=== PATIENT | female | born 1930 | race Caucasian/White ===

== ENCOUNTER 2017-02-15 17:35 | Emergency (ER) | payer MEDICARE, MEDICAID ==
[2017-02-15 17:35] VITALS: BMI 33.2
[2017-02-15 17:43] VITALS: TEMP 98; O2SAT 100
[2017-02-15 18:41] LABS: BASO # 0.1 K/uL (0.0-0.2); BASO % 1.4 % (0.0-2.0); EOS # 0.2 K/uL (0.0-0.7); EOS % 1.8 % (0.0-4.0); HEMATOCRIT 36.9 % (34.0-47.0); LYMPH # 2.3 K/uL (1.0-4.3); LYMPH % 22.9 % (20.0-40.0); MEAN CELL VOLUME 95.8 fl (81.0-99.0); MEAN CORPUSCULAR HEMOGLOBIN 31.1 pg (27.0-31.0); MEAN CORPUSCULAR HGB CONC 32.5 g/dL (33.0-37.0); MEAN PLATELET VOLUME 9.6 fl (7.2-11.7); MONO # 0.9 K/uL (0.0-0.8); MONO % 9.5 % (0.0-10.0); NEUT # 6.4 K/uL (1.8-7.0); NEUT % 64.4 % (50.0-75.0); NRBC % 0.2 % (0.0-0.0)
[2017-02-15 18:49] LABS: PARTIAL THROMBOPLASTIN TIME 24.2 Seconds (25.6-37.1)
[2017-02-15 18:57] LABS: ALB/GLOB RATIO 1.2 (1.0-2.1); BILIRUBIN,TOTAL 0.7 mg/dl (0.2-1.3); CALCIUM 9.3 mg/dL (8.4-10.2); POTASSIUM 3.8 MMOL/L (3.6-5.0); TOTAL PROTEIN 8.5 G/DL (6.3-8.2)
--- NOTE | 2017-02-15 19:03 | ED PDOC ---
HPI: Abdomen Time Seen by Provider: 02/15/17 18:06 Chief Complaint (Nursing): Abdominal Pain Chief Complaint (Provider): Abdominal Pain History Per: Patient History/Exam Limitations: no limitations Onset/Duration Of Symptoms: Days (x1) Current Symptoms Are (Timing): Still Present Additional Complaint(s): Riley Hamilton is an 86 year old female with previous medical history of chronic kidney disease, hypertension and diabetes, who presents to the emergency department with a complaint of abdominal pain associated with minimal urination during her dialysis treatment today. Denied fever, chills, nausea, vomiting, constipation or diarrhea. Patient was able to complete dialysis prior to ED visit. PMD: Kaushik Hooker MD Past Medical History Reviewed: Historical Data, Nursing Documentation, Vital Signs Vital Signs: Last Vital Signs Temp 98.0 F 02/15/17 17:40 Pulse 66 02/15/17 22:02 Resp 20 02/15/17 22:02 BP 190/71 H 02/15/17 22:02 Pulse Ox 100 02/15/17 21:08 - Medical History PMH: Anemia, Arthritis, Cardia Arrhythmia, Diabetes (type iI), GERD, HTN, Hypercholesterolemia, End Stage Renal Disease (dialysis M/W/F), Chronic Kidney Disease Denies: Atrial Fibrillation, CHF, COPD, HIV, Hypothyroidism, Kidney Stones, Rheumatoid Arthritis - Surgical History Surgical History: Appendectomy - Family History Family History: States: Hypertension - Social History Current smoker - smoking cessation education provided: No Ex-Smoker (has not smoked in the last 12 months): Yes Alcohol: None Drugs: Denies - Immunization History Hx Tetanus Toxoid Vaccination: (unknown) Hx Influenza Vaccination: Yes Hx Pneumococcal Vaccination: Yes - Home Medications Home Medications: Ambulatory Orders Medication Instructions Recorded Aspirin [Aspirin Chewable] 81 mg PO DAILY 06/12/16 Atorvastatin [Lipitor] 10 mg PO DAILY 06/12/16 Gabapentin [Neurontin] 400 mg PO TID 06/12/16 Losartan/Hydrochlorothiazide 100 mg PO DAILY 06/12/16 [Losartan-Hctz 100-12.5 mg Tab] Metoprolol Waggoner/Hydrochlorothiaz 100 mg PO DAILY 06/12/16 [Metoprolol ER-Hctz 100-12.5 mg] Pantoprazole Sodium [Protonix] 40 mg PO DAILY 06/12/16 amLODIPine [Norvasc] 10 mg PO DAILY 06/12/16 - Allergies Allergies/Adverse Reactions: Allergies Allergy/AdvReac Type Severity Reaction Status Date / Time No Known Allergies Allergy Verified 02/15/17 17:40 Review of Systems Constitutional: Negative for: Fever, Chills Gastrointestinal: Positive for: Abdominal Pain. Negative for: Nausea, Vomiting , Diarrhea, Constipation Genitourinary Female: Positive for: Other (minimal urination) Physical Exam - Reviewed Nursing Documentation Reviewed: Yes Vital Signs Reviewed: Yes - Physical Exam Appears: Positive for: Well, Non-toxic, No Acute Distress Head Exam: Positive for: ATRAUMATIC, NORMAL INSPECTION, NORMOCEPHALIC Skin: Positive for: Normal Color Eye Exam: Positive for: Normal appearance, EOMI, PERRL. Negative for: Nystagmus ENT: Positive for: Normal ENT Inspection Neck: Positive for: Normal, Painless ROM, Supple. Negative for: Decreased ROM Cardiovascular/Chest: Negative for: Chest Non Tender Respiratory: Positive for: Normal Breath Sounds, Accessory Muscle Use. Negative for: Decreased Breath Sounds, Respiratory Distress Gastrointestinal/Abdominal: Positive for: Soft, Tenderness (periumbilical). Negative for: Normal Exam, Guarding, Rebound Extremity: Positive for: Normal ROM Neurologic/Psych: Positive for: Alert, Oriented - Laboratory Results Result Diagrams: 02/15/17 18:19 02/15/17 18:19 - ECG O2 Sat by Pulse Oximetry: 100 (RA) Pulse Ox Interpretation: Normal Medical Decision Making Medical Decision Making: Initial Impression: Abdominal pain Initial Plan: * CT ABD/pelvis without contrast * EKG * CMP * Lipase * Urine dipstick * CBC * PTT * PT * Morphine 2mg IV * Accucheck * Urinalysis Time: 2034 --CT ABD.pelvis FINDINGS: Limitations: Lack of intravenous contrast. Motion artifact - mild. Motion artifact - mild to moderate. Lower thorax: Mild cardiomegaly. Coronary artery calcifications. Minimal atelectasis/scarring. 0.4 cm RIGHT middle lobe nodule, stable. Trace LEFT pleural effusion. Small hiatal hernia. ABDOMEN: Liver: Unremarkable. Gallbladder and bile ducts: No calcified stones. No ductal dilation. Pancreas: Unremarkable. No ductal dilation. Spleen: No splenomegaly. Adrenals: Mild hypertrophy of adrenal glands. Kidneys and ureters: No renal calculi. No hydronephrosis. Stomach and bowel: No definite mural thickening. No obstruction. Appendix: Appendectomy. PELVIS: Bladder: Borderline bladder wall thickening, up to 5 mm. Incomplete distention, limiting evaluation. No stones. Reproductive: Small calcification within uterus, likely fibroid. ABDOMEN and PELVIS: Intraperitoneal space: No significant fluid collection. No free air. Bones/joints: Degenerative changes of spine. No acute fracture. Soft tissues: Injection granulomas within gluteal soft tissues. Tiny umbilical hernia containing fat. Vasculature: Moderate atherosclerotic disease. No aneurysm. Lymph nodes: No pathologically enlarged lymph nodes. IMPRESSION: 1. Trace LEFT pleural effusion. 2. Mild cystitis vs underdistention. Correlate with urinalysis. 3. Incidental/non-acute findings are described above. Scribe Attestation: Documented by Deena iMlton, acting as a scribe for Celena Rowan MD. Provider Scribe Attestation: All medical record entries made by the Scribe were at my direction and personally dictated by me. I have reviewed the chart and agree that the record accurately reflects my personal performance of the history, physical exam, medical decision making, and the department course for this patient. I have also personally directed, reviewed, and agree with the discharge instructions and disposition. Disposition - Clinical Impression Clinical Impression: Abdominal pain in female - Patient ED Disposition Is Patient to be Admitted: No - Disposition Disposition: Routine/Home Disposition Time: 22:11 Condition: STABLE Additional Instructions: FOLLOW-UP WITH YOUR PMD WITHIN 2 DAYS FOR REEVALUATION. Instructions: Acute Abdominal Pain (ED) Forms: [employer] (Swedish) Print Language: STATELESS
--- NOTE | 2017-02-15 20:35 | CT ---
EXAM: CT Abdomen and Pelvis Without Intravenous Contrast CLINICAL HISTORY: 86 years old, female; Pain; Abdominal pain; Periumbilical; Prior surgery; Surgery date: 6+ months; Surgery type: Append removed; Additional info: Periumbilical pain TECHNIQUE: Axial computed tomography images of the abdomen and pelvis without intravenous contrast. All CT scans at this facility use one or more dose reduction techniques, viz.: automated exposure control; ma/kV adjustment per patient size (including targeted exams where dose is matched to indication; i.e. head); or iterative reconstruction technique. Coronal and sagittal reformatted images were created and reviewed. COMPARISON: CT - ABD PELVIS PO CONTRAST ONLY 01/29/2016 11:02:41 PM FINDINGS: Limitations: Lack of intravenous contrast. Motion artifact - mild. Motion artifact - mild to moderate. Lower thorax: Mild cardiomegaly. Coronary artery calcifications. Minimal atelectasis/scarring. 0.4 cm RIGHT middle lobe nodule, stable. Trace LEFT pleural effusion. Small hiatal hernia. ABDOMEN: Liver: Unremarkable. Gallbladder and bile ducts: No calcified stones. No ductal dilation. Pancreas: Unremarkable. No ductal dilation. Spleen: No splenomegaly. Adrenals: Mild hypertrophy of adrenal glands. Kidneys and ureters: No renal calculi. No hydronephrosis. Stomach and bowel: No definite mural thickening. No obstruction. Appendix: Appendectomy. PELVIS: Bladder: Borderline bladder wall thickening, up to 5 mm. Incomplete distention, limiting evaluation. No stones. Reproductive: Small calcification within uterus, likely fibroid. ABDOMEN and PELVIS: Intraperitoneal space: No significant fluid collection. No free air. Bones/joints: Degenerative changes of spine. No acute fracture. Soft tissues: Injection granulomas within gluteal soft tissues. Tiny umbilical hernia containing fat. Vasculature: Moderate atherosclerotic disease. No aneurysm. Lymph nodes: No pathologically enlarged lymph nodes. IMPRESSION: 1. Trace LEFT pleural effusion. 2. Mild cystitis vs underdistention. Correlate with urinalysis. 3. Incidental/non-acute findings are described above.
[2017-02-15 22:02] VITALS: BP 190/71; PULSE 66; RESP 20
--- NOTE | 2017-02-16 12:02 | CARD ---
APPROVED REPORT EKG Measurement Heart [id number] <Conclusion> Normal sinus rhythm Rightward axis Nonspecific intraventricular block Abnormal ECG
== END 2017-02-15 22:40 | disposition home or self-care (01) ==
LOC: H.ER 17:35
DX: R10.2 Pelvic and perineal pain (principal); E11.9 Type 2 diabetes mellitus without complications; I10 Essential (primary) hypertension; N18.6 End stage renal disease; Z98.890 Other specified postprocedural states; Z99.2 Dependence on renal dialysis; Z87.891 Personal history of nicotine dependence
CPT/HCPCS: 74176; 80053; 82948; 83690; 85025; 85610; 85730; 93005; 96374; 99283; J2270

== ENCOUNTER 2017-03-01 17:46 | Inpatient (IN) | payer MEDICARE, MEDICAID ==
[2017-03-01 17:47] VITALS: BMI 33.2
--- NOTE | 2017-03-01 18:26 | ED PDOC ---
HPI: Abdomen Time Seen by Provider: 03/01/17 18:04 Chief Complaint (Nursing): Dizziness/Lightheaded Chief Complaint (Provider): abdominal pain History Per: Patient, Family (daughter) History/Exam Limitations: no limitations Onset/Duration Of Symptoms: Mins (x30) Current Symptoms Are (Timing): Still Present Additional Complaint(s): Riley Hamilton is an 86 year old female who presents to the emergency department accompanied by daughter, for an evaluation of sudden, constant umbilical pain associated with low blood pressure, lightheadedness and nausea ongoing 30 minutes prior to arrival. Denied fever, chills, diarrhea, vomiting or constipation. Daughter stated patient feels similar symptoms usually at the end of dialysis treatments on and off for years and noted last meal was at 1400 today. PMD: Kaushik Hooker MD Past Medical History Reviewed: Historical Data, Nursing Documentation, Vital Signs Vital Signs: Last Vital Signs Temp 98.6 F 03/01/17 23:15 Pulse 75 03/01/17 23:15 Resp 18 03/01/17 23:15 BP 199/70 H 03/01/17 23:15 Pulse Ox 100 03/01/17 23:15 - Medical History PMH: Anemia, Arthritis, Cardia Arrhythmia, Diabetes (type iI), GERD, HTN, Hypercholesterolemia, End Stage Renal Disease (dialysis M/W/F), Chronic Kidney Disease Denies: Atrial Fibrillation, CHF, COPD, HIV, Hypothyroidism, Kidney Stones, Rheumatoid Arthritis - Surgical History Surgical History: Appendectomy - Family History Family History: States: Hypertension - Social History Current smoker - smoking cessation education provided: No Ex-Smoker (has not smoked in the last 12 months): Yes Alcohol: None Drugs: Denies - Immunization History Hx Tetanus Toxoid Vaccination: (unknown) Hx Influenza Vaccination: Yes Hx Pneumococcal Vaccination: Yes - Home Medications Home Medications: Ambulatory Orders Medication Instructions Recorded Aspirin [Aspirin Chewable] 81 mg PO DAILY 06/12/16 Atorvastatin [Lipitor] 40 mg PO DAILY 06/12/16 Gabapentin [Neurontin] 400 mg PO TID 06/12/16 Losartan/Hydrochlorothiazide 100 mg PO DAILY 06/12/16 [Losartan-Hctz 100-12.5 mg Tab] Metoprolol Waggoner/Hydrochlorothiaz 100 mg PO DAILY 06/12/16 [Metoprolol ER-Hctz 100-12.5 mg] Pantoprazole Sodium [Protonix] 40 mg PO DAILY 06/12/16 amLODIPine [Norvasc] 10 mg PO DAILY 06/12/16 Clopidogrel [Plavix] 75 mg PO DAILY 03/01/17 Insulin Aspart, Recombinant 5 units SUBCUT DAILY 03/01/17 [Novolog] Latanoprost 0.005% Opht [Xalatan 1 drop DAILY 03/01/17 Opht] Sevelamer Carbonate [Renvela] 800 mg PO DAILY 03/01/17 Timolol 0.25% Ophth [Timoptic 1 drop BID 03/01/17 0.25% Ophth Soln] Zolpidem [Ambien] 10 mg PO DAILY 03/01/17 cloNIDine [Catapres] 0.1 mg PO DAILY 03/01/17 - Allergies Allergies/Adverse Reactions: Allergies Allergy/AdvReac Type Severity Reaction Status Date / Time No Known Allergies Allergy Verified 03/01/17 17:51 Review of Systems ROS Statement: Except As Marked, All Systems Reviewed And Found Negative (and as per HPI) Constitutional: Negative for: Fever, Chills Gastrointestinal: Positive for: Nausea, Abdominal Pain (umbilical). Negative for: Vomiting, Diarrhea, Constipation Neurological: Positive for: Dizziness (lightheaded) Physical Exam - Reviewed Nursing Documentation Reviewed: Yes Vital Signs Reviewed: Yes - Physical Exam Appears: Positive for: Non-toxic, In Acute Distress Head Exam: Positive for: ATRAUMATIC, NORMOCEPHALIC Skin: Positive for: Warm, Dry Eye Exam: Positive for: EOMI, PERRL ENT: Positive for: Pharynx Is (clear) Neck: Positive for: Painless ROM, Supple Cardiovascular/Chest: Positive for: Tachycardia, Irregularly Irregular. Negative for: Murmur Respiratory: Positive for: Normal Breath Sounds. Negative for: Respiratory Distress Gastrointestinal/Abdominal: Positive for: Soft, Tenderness (periumbilical). Negative for: Mass, Distended, Guarding Back: Positive for: Normal Inspection. Negative for: Decreased ROM Extremity: Positive for: Pedal Edema. Negative for: Deformity Lymphatic: Negative for: Adenopathy Neurologic/Psych: Positive for: Alert. Negative for: Motor/Sensory Deficits - Laboratory Results Result Diagrams: 03/01/17 18:38 03/01/17 18:38 - ECG ECG Rhythm: Positive for: Atrial Fibrillation (with RVR) O2 Sat by Pulse Oximetry: 99 (RA) Pulse Ox Interpretation: Normal - Radiology X-Ray Interpretation: Cardiomegaly (with no obvious infiltrate) - Progress ED Course And Treament: Pt found to have new onset atrial fibrillation. BP dipped to sbp 89. Amiodarone IV bolus and infusion ordered. Re-evaluation Time: 21:00 Condition: Improving,but remains with symptoms (in atrial fib rate controlled in 90s) - Physician Consult Information Time Consulting Physican Contacted: 21:15 Physician Contacted: Ty David Outcome Of Conversation: According to Dr David pt has paroxysmal atrial fibrillation and in the past has been on amiodarone. Will follow pt in hospital. - Critical Care Total Time (In Min): 30 Documented Critical Care: Time excludes all time spent performint seperately billable procedures Medical Decision Making Medical Decision Making: Initial Impression: acute/chronic abdominal pain, new onset atrial fib Differential Diagnosis: Abdominal angina; gastritis; peptic ulcer disease; pancreatitis; dyspepsia; ACS; atrial fib Initial Plan: * CMP * Lact acid, plasma * Lipase * CBC * Bentyl 20mg PO * Lidocaine 2% viscous 10ml PO * Pepcid 40mg PO * Amiodarone Time: 2048 --CT ABD/pelvis FINDINGS: Lower thorax: Small bilateral pleural effusions are present with overlying consolidation secondary to atelectasis or infiltrate. A small hiatal hernia is present. ABDOMEN: Liver: The liver is within normal limits for this noncontrast study. Gallbladder and bile ducts: Unremarkable. No calcified stones. No ductal dilation. Pancreas: Unremarkable. No ductal dilation. Spleen: Unremarkable. No splenomegaly. Adrenals: Unremarkable. No mass. Kidneys and ureters: There is a calcification adjacent to the right mid ureter measuring 5 mm, most likely vascular. There is a 2 mm calcification in the lower pole of the left kidney. The right kidney is normal. No hydronephrosis. Stomach and bowel: There is a moderate amount stool throughout the colon. No obstruction. No mucosal thickening. Appendix: Not visualized. PELVIS: Bladder: The bladder is decompressed. No stones. Reproductive: Unremarkable as visualized. ABDOMEN and PELVIS: Intraperitoneal space: Unremarkable. No free air. No significant fluid collection. Bones/joints: There are degenerative changes in the spine. Vasculature: The vasculature demonstrates diffuse moderate atherosclerotic calcification. Stable calcification adjacent to the right mid ureter measuring 5 mm, most likely vascular, unchanged. Lymph nodes: Nonspecific, mildly enlarged bilateral inguinal lymph nodes measuring up to 2.4 cm, unchanged. There is a fat-containing umbilical hernia. IMPRESSION: No acute intra-abdominal or pelvic abnormality. No evidence of bowel or mesenteric ischemia. Nonobstructing left renal stone. Bilateral pleural effusions with overlying consolidation secondary to atelectasis/infiltrate. Small hiatal hernia. Stable bilateral inguinal adenopathy. Small fat containing umbilical hernia Scribe Attestation: Documented by Deena Milton, acting as a scribe for Azalea Young MD. Provider Scribe Attestation: All medical record entries made by the Scribe were at my direction and personally dictated by me. I have reviewed the chart and agree that the record accurately reflects my personal performance of the history, physical exam, medical decision making, and the department course for this patient. I have also personally directed, reviewed, and agree with the discharge instructions and disposition. Disposition - Clinical Impression Clinical Impression: Atrial fibrillation, rapid Counseled Patient/Family Regarding: Studies Performed, Diagnosis - Disposition Disposition Time: 20:00 Condition: GUARDED - Pt Status Changed To: Hospital Disposition Of: Inpatient - Admit Certification Admit to Inpatient:: After my assessment, the patient will require hospitalization for at least two midnights. This is because of the severity of symptoms shown, intensity of services needed, and/or the medical risk in this patient being treated as an outpatient. - POA Present On Arrival: None
[2017-03-01 18:39] LABS: BASO # 0.1 K/uL (0.0-0.2); BASO % 0.9 % (0.0-2.0); EOS # 0.2 K/uL (0.0-0.7); EOS % 1.8 % (0.0-4.0); HEMATOCRIT 33.5 % (34.0-47.0); LYMPH # 1.6 K/uL (1.0-4.3); LYMPH % 18.3 % (20.0-40.0); MEAN CELL VOLUME 95.4 fl (81.0-99.0); MEAN CORPUSCULAR HEMOGLOBIN 32.2 pg (27.0-31.0); MEAN CORPUSCULAR HGB CONC 33.7 g/dL (33.0-37.0); MEAN PLATELET VOLUME 9.9 fl (7.2-11.7); MONO # 0.7 K/uL (0.0-0.8); MONO % 7.6 % (0.0-10.0); NEUT # 6.2 K/uL (1.8-7.0); NEUT % 71.4 % (50.0-75.0); NRBC % 0.2 % (0.0-0.0); RED CELL DISTRIBUTION WIDTH 18.5 % (11.5-14.5); WHITE BLOOD COUNT 8.7 K/uL (4.8-10.8)
[2017-03-01 18:50] LABS: ALB/GLOB RATIO 1.2 (1.0-2.1); BILIRUBIN,TOTAL 0.7 mg/dl (0.2-1.3); CALCIUM 9.5 mg/dL (8.4-10.2); POTASSIUM 4.7 MMOL/L (3.6-5.0); TOTAL PROTEIN 8.3 G/DL (6.3-8.2)
--- NOTE | 2017-03-01 20:49 | CT ---
EXAM: CT Abdomen and Pelvis Without Intravenous Contrast CLINICAL HISTORY: 86 years old, female; Pain; Abdominal pain; Generalized; Additional info: New onset afib and abd pain R/O mesenteric ischemi. Sent phy. Doc. TECHNIQUE: Axial computed tomography images of the abdomen and pelvis without intravenous contrast. All CT scans at this facility use one or more dose reduction techniques, viz.: automated exposure control; ma/kV adjustment per patient size (including targeted exams where dose is matched to indication; i.e. head); or iterative reconstruction technique. Coronal and sagittal reformatted images were created and reviewed. COMPARISON: CT - ABD PELVIS W/O PO OR IV CONT 2017-02-15 19:12 FINDINGS: Lower thorax: Small bilateral pleural effusions are present with overlying consolidation secondary to atelectasis or infiltrate. A small hiatal hernia is present. ABDOMEN: Liver: The liver is within normal limits for this noncontrast study. Gallbladder and bile ducts: Unremarkable. No calcified stones. No ductal dilation. Pancreas: Unremarkable. No ductal dilation. Spleen: Unremarkable. No splenomegaly. Adrenals: Unremarkable. No mass. Kidneys and ureters: There is a calcification adjacent to the right mid ureter measuring 5 mm, most likely vascular. There is a 2 mm calcification in the lower pole of the left kidney. The right kidney is normal. No hydronephrosis. Stomach and bowel: There is a moderate amount stool throughout the colon. No obstruction. No mucosal thickening. Appendix: Not visualized. PELVIS: Bladder: The bladder is decompressed. No stones. Reproductive: Unremarkable as visualized. ABDOMEN and PELVIS: Intraperitoneal space: Unremarkable. No free air. No significant fluid collection. Bones/joints: There are degenerative changes in the spine. Vasculature: The vasculature demonstrates diffuse moderate atherosclerotic calcification. Stable calcification adjacent to the right mid ureter measuring 5 mm, most likely vascular, unchanged. Lymph nodes: Nonspecific, mildly enlarged bilateral inguinal lymph nodes measuring up to 2.4 cm, unchanged. There is a fat-containing umbilical hernia. IMPRESSION: No acute intra-abdominal or pelvic abnormality. No evidence of bowel or mesenteric ischemia. Nonobstructing left renal stone. Bilateral pleural effusions with overlying consolidation secondary to atelectasis/infiltrate. Small hiatal hernia. Stable bilateral inguinal adenopathy. Small fat containing umbilical hernia.
[2017-03-02] MEDS: Insulin Regular 100 units/ml SC SCH ×4 (06:43→23:00)
[2017-03-02] MEDS ORDERED: HYDROCHLOROTHIAZ PO SCH (09:00)
[2017-03-02] MEDS ORDERED: HYDROCHLOROTHIAZIDE PO SCH (09:00)
[2017-03-02] MEDS ORDERED: INSULIN ASPART RECOMBINANT 5 UNIT SUBCUT SCH (09:00)
[2017-03-02] MEDS ORDERED: [UNRECOGNIZED DRUG - OTHER] PO SCH (09:00)
[2017-03-02] MEDS ORDERED: METOPROLOL SU PO SCH (09:00)
[2017-03-02] MEDS ORDERED: ATORVASTATIN 40 MG PO SCH (09:00)
[2017-03-02] MEDS ORDERED: LOSARTAN PO SCH (09:00)
--- NOTE | 2017-03-02 09:24 | CP.PCM.CON ---
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 Pt is presenting with complaints of abdominal pain onset approximately 1 month ago. Pt in the ER was also found to be in new onset Afib and started on IV amiodarone. Abdominal pain is periumbilical, dull, cramp-like , rated 6/10, constant, no alleviating or aggravating factors, BM yesterday x 2 described as soft, non-bloody, non-tarry, and passing gas. Pt reports having BM every 2days and at times is hard/strain. Pt reports having EGD/Colonoscopy many years ago and recalls it being normal. Pt denies epigastric pain, heartburn or reflux. Pt had a CT A/P which showed periumbilical hernia and moderate stool in colon. ROS: A 12pt ROS was obtained and was negative except as above. PMHx:As stated in HPI PSHx: Bilat Transmetatarsal amputation, Parathyroid surgery, Stent placement bilateral lower extremities, Appendectomy Social: TOB- quit 30 years ago, ETOH- Denies, Drugs- Denies FHx: Denies colon cancer Past Patient History - Infectious Disease Hx of Infectious Diseases: None - Tetanus Immunizations Tetanus Immunization: Unknown - Past Medical History & Family History Past Medical History?: Yes - Past Social History Alcohol: None Drugs: Denies - CARDIAC Hx Atrial Fibrillation: No Hx Cardia Arrhythmia: Yes Hx Congestive Heart Failure: No Hx Hypercholesterolemia: Yes Hx Hypertension: Yes - PULMONARY Hx Chronic Obstructive Pulmonary Disease (COPD): No - NEUROLOGICAL Hx Neurological Disorder: No - HEENT Hx HEENT Problems: Yes - RENAL Hx Chronic Kidney Disease: Yes Hx Kidney Stones: No - ENDOCRINE/METABOLIC Hx Hypothyroidism: No - HEMATOLOGICAL/ONCOLOGICAL Hx Anemia: Yes Hx Human Immunodeficiency Virus (HIV): No - INTEGUMENTARY Hx Dermatological Problems: No - MUSCULOSKELETAL/RHEUMATOLOGICAL Hx Arthritis: Yes Hx Rheumatoid Arthritis: No - GASTROINTESTINAL Hx Gastrointestinal Disorders: Yes Hx Gastroesophageal Reflux: Yes - GENITOURINARY/GYNECOLOGICAL Hx Genitourinary Disorders: No - PSYCHIATRIC Hx Substance Use: No - SURGICAL HISTORY Hx Appendectomy: Yes - ANESTHESIA Hx Anesthesia: Yes Hx Anesthesia Reactions: No Hx Malignant Hyperthermia: No Meds Allergies/Adverse Reactions: Allergies Allergy/AdvReac Type Severity Reaction Status Date / Time No Known Allergies Allergy Verified 03/01/17 17:51 - Medications Medications: Current Medications Amlodipine Besylate (Norvasc) 10 mg PO DAILY [facility] Last Admin: 03/02/17 00:07 Dose: 10 mg Aspirin (Aspirin Chewable) 81 mg PO DAILY [facility] Atorvastatin Calcium (Lipitor) 40 mg PO DAILY [facility] Clonidine HCl (Catapres) 0.1 mg PO DAILY [facility] Clopidogrel Bisulfate (Plavix) 75 mg PO DAILY [facility] Enoxaparin Sodium (Lovenox) 70 mg SC DAILY [facility] PRN Reason: Protocol Gabapentin (Neurontin) 400 mg PO TID [facility] Home Med (Losartan/Hydrochlorothiazide [Losartan-Hctz 100-12.5 Mg Tab]) 100 mg PO DAILY [facility] Home Med (Metoprolol [place]/Hydrochlorothiaz [Metoprolol Er-Hctz 100-12.5 Mg]) 100 mg PO DAILY [facility] Amiodarone HCl 450 mg/ (Dextrose) 259 mls @ 34.53 mls/hr IVPB .Q7H31M MOHINDER; 1 MG /MIN PRN Reason: Protocol Last Admin: 03/02/17 04:07 Dose: 16.7 mls/hr Insulin Human Lispro (Humalog) 5 units SC DAILY [facility] Insulin Human Regular (Humulin R) 0 units SC ACCU-CHECK [facility] PRN Reason: Protocol Last Admin: 03/02/17 06:43 Dose: 2 u Latanoprost (Xalatan Opht) 1 drop OU DAILY [facility] Pantoprazole Sodium (Protonix Ec Tab) 40 mg PO DAILY [facility] Sevelamer HCl (Renagel) 800 mg PO DAILY [facility] Timolol Maleate (Timoptic 0.25% Ophth Soln) 1 drop OU BID [facility] Zolpidem Tartrate (Ambien) 5 mg PO [facility] Physical Exam - Constitutional Appears: Non-toxic, No Acute Distress - Head Exam Head Exam: ATRAUMATIC, NORMAL INSPECTION, NORMOCEPHALIC - Eye Exam Eye Exam: EOMI, Normal appearance, PERRL Pupil Exam: PERRL - ENT Exam ENT Exam: Mucous Membranes Moist, Normal Exam - Neck Exam Neck exam: Positive for: Normal Inspection - Respiratory Exam Respiratory Exam: Clear to Auscultation Bilateral, NORMAL BREATHING PATTERN - GI/Abdominal Exam GI & Abdominal Exam: Normal Bowel Sounds, Soft, Tenderness. absent: Distended, Organomegaly Additional comments: small periumbilical hernia on cough - Rectal Exam Rectal Exam: Deferred - Extremities Exam Extremities exam: Positive for: normal inspection Additional comments: LAVF - Back Exam Back exam: NORMAL INSPECTION - Neurological Exam Neurological exam: Alert, Oriented x3 - Psychiatric Exam Psychiatric exam: Normal Affect, Normal Mood - Skin Skin Exam: Dry, Intact, Normal Color, Warm Results - Vital Signs Recent Vital Signs: Last Vital Signs Temp 98.3 F 03/02/17 08:00 Pulse 60 03/02/17 08:00 Resp 18 03/02/17 08:00 BP 173/63 H 03/02/17 08:00 Pulse Ox 98 03/02/17 08:00 - Labs Result Diagrams: 03/01/17 18:38 03/01/17 18:38 Labs: Laboratory Results - last 24 hr 03/01/17 03/01/17 03/01/17 18:38 18:38 18:38 WBC 8.7 RBC 3.52 L Hgb 11.3 L Hct 33.5 L MCV 95.4 MCH 32.2 H MCHC 33.7 RDW 18.5 H Plt Count 216 MPV 9.9 Neut % (Auto) 71.4 Lymph % (Auto) 18.3 L [place] % (Auto) 7.6 Eos % (Auto) 1.8 Baso % (Auto) 0.9 Neut # 6.2 Lymph # 1.6 [place] # 0.7 Eos # 0.2 Baso # 0.1 Sodium 140 Potassium 4.7 Chloride 99 Carbon Dioxide 27 Anion Gap 19 BUN 31 H Creatinine 4.1 H Est GFR ( Amer) 12 Est GFR (Non-Af Amer) 10 POC Glucose (mg/dL) Random Glucose 246 H Lactic Acid 2.7 H Calcium 9.5 Total Bilirubin 0.7 AST 36 ALT 16 Alkaline Phosphatase 144 H Troponin I Total Protein 8.3 H Albumin 4.5 Globulin 3.8 Albumin/Globulin Ratio 1.2 Lipase 193 03/01/17 03/02/17 19:27 06:32 WBC RBC Hgb Hct MCV MCH MCHC RDW Plt Count MPV Neut % (Auto) Lymph % (Auto) [place] % (Auto) Eos % (Auto) Baso % (Auto) Neut # Lymph # [place] # Eos # Baso # Sodium Potassium Chloride Carbon Dioxide Anion Gap BUN Creatinine Est GFR ( Amer) Est GFR (Non-Af Amer) POC Glucose (mg/dL) 239 H Random Glucose Lactic Acid Calcium Total Bilirubin AST ALT Alkaline Phosphatase Troponin I 0.0130 Total Protein Albumin Globulin Albumin/Globulin Ratio Lipase Assessment & Plan - Assessment and Plan (Free Text) Assessment: This is a 86yF with pmhx of HTN, HLD, IDDM Type II, CHF, CKD on HD MWF, PAD, TIA on aspirin/plavix presenting with complaints of abdominal pain onset approximately 1 month ago and new onset afib. 1. Abdominal pain 2. Constipation 3. New onset Afib 4. ESRD on HD 5. CAD/PAD/TIA Plan: -Continue supportive care with pain control and anti-emetics - Bowel regimen for moderate stool on CT imaging, can be contributing to abdominal pian, - Will start miralax daily and can titrate up for at least 1 soft BM daily - Small periumbilia hernia with fat no signs of incarcerated bowel, may need surgical evaluation if no improvement - No plan for endoscopic evaluation as pt is not complaining of GERD or GI bleeding, pt is also on dual antiplatlet therapy - Manage new onset Afib per cardiology , pt is curently on IV amidodarone - No signs of mesenteric ischemia on CT imaging, continue to monitor with serial abdominal exams - ESRD on HD MWF -Will continue to follow pt closely <Joan COSTELLO,An - Last Filed: 03/02/17 14:47> Meds - Medications Medications: Current Medications Amiodarone HCl (Cordarone) 200 mg PO DAILY [facility] Last Admin: 03/02/17 12:23 Dose: 200 mg Amlodipine Besylate (Norvasc) 10 mg PO DAILY [facility] Last Admin: 03/02/17 09:45 Dose: 10 mg Aspirin (Aspirin Chewable) 81 mg PO DAILY [facility] Last Admin: 03/02/17 10:35 Dose: 81 mg Atorvastatin Calcium (Lipitor) 40 mg PO DAILY [facility] Last Admin: 03/02/17 09:45 Dose: 40 mg Clonidine HCl (Catapres) 0.1 mg PO DAILY [facility] Last Admin: 03/02/17 09:45 Dose: 0.1 mg Clopidogrel Bisulfate (Plavix) 75 mg PO DAILY [facility] Last Admin: 03/02/17 09:45 Dose: 75 mg Enoxaparin Sodium (Lovenox) 70 mg SC DAILY [facility] PRN Reason: Protocol Last Admin: 03/02/17 09:45 Dose: 70 mg Gabapentin (Neurontin) 400 mg PO TID [facility] Last Admin: 03/02/17 14:00 Dose: 400 mg Amiodarone HCl 450 mg/ (Dextrose) 259 mls @ 34.53 mls/hr IVPB .Q7H31M MOHINDER; 1 MG /MIN PRN Reason: Protocol Last Admin: 03/02/17 10:50 Dose: 34.53 mls/hr Insulin Human Lispro (Humalog) 5 units SC DAILY [facility] Last Admin: 03/02/17 09:45 Dose: 5 unit Insulin Human Regular (Humulin R) 0 units SC ACCU-CHECK [facility] PRN Reason: Protocol Last Admin: 03/02/17 12:00 Dose: 1 u Latanoprost (Xalatan Opht) 1 drop OU DAILY [facility] Last Admin: 03/02/17 10:41 Dose: 1 drop Metoprolol Succinate (Toprol Xl) 100 mg PO DAILY [facility] Last Admin: 03/02/17 12:23 Dose: 100 mg Pantoprazole Sodium (Protonix Ec Tab) 40 mg PO DAILY [facility] Last Admin: 03/02/17 09:45 Dose: 40 mg Polyethylene Glycol (Miralax) 17 gm PO DAILY [facility] Last Admin: 03/02/17 12:23 Dose: 17 gm Sevelamer HCl (Renagel) 800 mg PO DAILY [facility] Last Admin: 03/02/17 09:45 Dose: 800 mg Timolol Maleate (Timoptic 0.25% Ophth Soln) 1 drop OU BID [facility] Last Admin: 03/02/17 09:45 Dose: 1 drop Zolpidem Tartrate (Ambien) 5 mg PO [facility] Results - Vital Signs Recent Vital Signs: Last Vital Signs Temp 98.2 F 03/02/17 12:05 Pulse 63 03/02/17 12:23 Resp 18 03/02/17 12:05 BP 158/66 H 03/02/17 12:23 Pulse Ox 93 L 03/02/17 12:05 - Labs Result Diagrams: 03/01/17 18:38 03/01/17 18:38 Labs: Laboratory Results - last 24 hr 03/01/17 03/01/17 03/01/17 18:38 18:38 18:38 WBC 8.7 RBC 3.52 L Hgb 11.3 L Hct 33.5 L MCV 95.4 MCH 32.2 H MCHC 33.7 RDW 18.5 H Plt Count 216 MPV 9.9 Neut % (Auto) 71.4 Lymph % (Auto) 18.3 L [place] % (Auto) 7.6 Eos % (Auto) 1.8 Baso % (Auto) 0.9 Neut # 6.2 Lymph # 1.6 [place] # 0.7 Eos # 0.2 Baso # 0.1 Sodium 140 Potassium 4.7 Chloride 99 Carbon Dioxide 27 Anion Gap 19 BUN 31 H Creatinine 4.1 H Est GFR ( Amer) 12 Est GFR (Non-Af Amer) 10 POC Glucose (mg/dL) Random Glucose 246 H Lactic Acid 2.7 H Calcium 9.5 Total Bilirubin 0.7 AST 36 ALT 16 Alkaline Phosphatase 144 H Troponin I Total Protein 8.3 H Albumin 4.5 Globulin 3.8 Albumin/Globulin Ratio 1.2 Amylase Lipase 193 03/01/17 03/02/17 03/02/17 19:27 06:32 10:45 WBC RBC Hgb Hct MCV MCH MCHC RDW Plt Count MPV Neut % (Auto) Lymph % (Auto) [place] % (Auto) Eos % (Auto) Baso % (Auto) Neut # Lymph # [place] # Eos # Baso # Sodium Potassium Chloride Carbon Dioxide Anion Gap BUN Creatinine Est GFR ( Amer) Est GFR (Non-Af Amer) POC Glucose (mg/dL) 239 H Random Glucose Lactic Acid Calcium Total Bilirubin AST ALT Alkaline Phosphatase Troponin I 0.0130 Total Protein Albumin Globulin Albumin/Globulin Ratio Amylase 140 H Lipase 157 03/02/17 03/02/17 10:45 11:25 WBC RBC Hgb Hct MCV MCH MCHC RDW Plt Count MPV Neut % (Auto) Lymph % (Auto) [place] % (Auto) Eos % (Auto) Baso % (Auto) Neut # Lymph # [place] # Eos # Baso # Sodium Potassium Chloride Carbon Dioxide Anion Gap BUN Creatinine Est GFR ( Amer) Est GFR (Non-Af Amer) POC Glucose (mg/dL) 170 H Random Glucose Lactic Acid 1.5 Calcium Total Bilirubin AST ALT Alkaline Phosphatase Troponin I Total Protein Albumin Globulin Albumin/Globulin Ratio Amylase Lipase Attending/Attestation - Attestation I have personally seen and examined this patient.: Yes I have fully participated in the care of the patient.: Yes I have reviewed all pertinent clinical information: Yes Notes (Text): 03/02/17 14:39 This is a 86 yr old F with pmhx of HTN, HLD, IDDM Type II, CHF, CKD on HD, PAD, TIA on aspirin/plavix presenting with complaints of abdominal pain onset approximately 1 month ago and new onset afib on amiodarone. GI consulted for abdominal pain, found to have periumbilical hernia with fat, non incarcerated, reducible. CT shows stool in colon. Will start bowel regimen with miralax and stool softeners. No indication for endoscopic luminal exam. Surgical consult noted. No ischemic signs. Diet as per surgery.
[2017-03-02] MEDS: Insulin Lispro (humaLOG) 100 Units/ml Inj SC SCH (09:45)
[2017-03-02] MEDS: Pantoprazole 40 mg EC Tab PO SCH (09:45)
[2017-03-02] MEDS: Enoxaparin 80 mg Syringe SC SCH (09:45)
[2017-03-02] MEDS: Timolol 0.25% Ophth SOLN OU SCH ×2 (09:45→17:00)
--- NOTE | 2017-03-02 10:32 | RAD ---
HISTORY: f/u on abd CT pleural effusion/ infiltrate COMPARISON: 06/15/2016 TECHNIQUE: Chest PA and lateral FINDINGS: LUNGS: Examination technically limited. No infiltrate identified. PLEURA: Left dario diaphragmatic contour obscured. Possible small left pleural effusion. No evidence of right pleural effusion. No pneumothorax. CARDIOVASCULAR: Normal. OSSEOUS STRUCTURES: No significant abnormalities. VISUALIZED UPPER ABDOMEN: Normal. OTHER FINDINGS: None. IMPRESSION: Limited examination. Possible small left pleural effusion. No infiltrate.
[2017-03-02] MEDS: Latanoprost 0.005% Opht SOUTION OU SCH (10:41)
[2017-03-02 11:18] LABS: AMYLASE 140 U/L (30-110); LIPASE 157 U/L (23-300)
--- NOTE | 2017-03-02 11:46 | CP.PCM.CON ---
History of Present Illness - History of Present Illness History of Present Illness: 86 year old female with ESRD on Hemodialysis Htn, Dm2, admitted with abdominal pain s/p dialysis and noted to be in atrial fibrillation. Started on Amiodarone IV and converted to NSR. Still with c/o periumbilcal pain. GI and Surgery evaluations performed. Past Patient History - Infectious Disease Hx of Infectious Diseases: None - Tetanus Immunizations Tetanus Immunization: Unknown - Past Medical History & Family History Past Medical History?: Yes - Past Social History Alcohol: None Drugs: Denies - CARDIAC Hx Atrial Fibrillation: No Hx Cardia Arrhythmia: Yes Hx Congestive Heart Failure: No Hx Hypercholesterolemia: Yes Hx Hypertension: Yes - PULMONARY Hx Chronic Obstructive Pulmonary Disease (COPD): No - NEUROLOGICAL Hx Neurological Disorder: No - HEENT Hx HEENT Problems: Yes - RENAL Hx Chronic Kidney Disease: Yes Hx Kidney Stones: No - ENDOCRINE/METABOLIC Hx Hypothyroidism: No - HEMATOLOGICAL/ONCOLOGICAL Hx Anemia: Yes Hx Human Immunodeficiency Virus (HIV): No - INTEGUMENTARY Hx Dermatological Problems: No - MUSCULOSKELETAL/RHEUMATOLOGICAL Hx Arthritis: Yes Hx Rheumatoid Arthritis: No - GASTROINTESTINAL Hx Gastrointestinal Disorders: Yes Hx Gastroesophageal Reflux: Yes - GENITOURINARY/GYNECOLOGICAL Hx Genitourinary Disorders: No - PSYCHIATRIC Hx Substance Use: No - SURGICAL HISTORY Hx Appendectomy: Yes - ANESTHESIA Hx Anesthesia: Yes Hx Anesthesia Reactions: No Hx Malignant Hyperthermia: No Meds Allergies/Adverse Reactions: Allergies Allergy/AdvReac Type Severity Reaction Status Date / Time No Known Allergies Allergy Verified 03/01/17 17:51 - Medications Medications: Current Medications Amlodipine Besylate (Norvasc) 10 mg PO DAILY [facility] Last Admin: 03/02/17 09:45 Dose: 10 mg Aspirin (Aspirin Chewable) 81 mg PO DAILY [facility] Last Admin: 03/02/17 10:35 Dose: 81 mg Atorvastatin Calcium (Lipitor) 40 mg PO DAILY [facility] Last Admin: 03/02/17 09:45 Dose: 40 mg Clonidine HCl (Catapres) 0.1 mg PO DAILY [facility] Last Admin: 03/02/17 09:45 Dose: 0.1 mg Clopidogrel Bisulfate (Plavix) 75 mg PO DAILY [facility] Last Admin: 03/02/17 09:45 Dose: 75 mg Enoxaparin Sodium (Lovenox) 70 mg SC DAILY [facility] PRN Reason: Protocol Last Admin: 03/02/17 09:45 Dose: 70 mg Gabapentin (Neurontin) 400 mg PO TID [facility] Last Admin: 03/02/17 09:45 Dose: 400 mg Amiodarone HCl 450 mg/ (Dextrose) 259 mls @ 34.53 mls/hr IVPB .Q7H31M MOHINDER; 1 MG /MIN PRN Reason: Protocol Last Admin: 03/02/17 04:07 Dose: 16.7 mls/hr Insulin Human Lispro (Humalog) 5 units SC DAILY [facility] Last Admin: 03/02/17 09:45 Dose: 5 unit Insulin Human Regular (Humulin R) 0 units SC ACCU-CHECK [facility] PRN Reason: Protocol Last Admin: 03/02/17 06:43 Dose: 2 u Latanoprost (Xalatan Opht) 1 drop OU DAILY [facility] Last Admin: 03/02/17 10:41 Dose: 1 drop Metoprolol Succinate (Toprol Xl) 100 mg PO DAILY [facility] Pantoprazole Sodium (Protonix Ec Tab) 40 mg PO DAILY [facility] Last Admin: 03/02/17 09:45 Dose: 40 mg Polyethylene Glycol (Miralax) 17 gm PO DAILY [facility] Sevelamer HCl (Renagel) 800 mg PO DAILY [facility] Last Admin: 03/02/17 09:45 Dose: 800 mg Timolol Maleate (Timoptic 0.25% Ophth Soln) 1 drop OU BID [facility] Last Admin: 03/02/17 09:45 Dose: 1 drop Zolpidem Tartrate (Ambien) 5 mg PO [facility] Physical Exam - Constitutional Appears: No Acute Distress - Head Exam Head Exam: NORMAL INSPECTION - Neck Exam Neck exam: Positive for: Normal Inspection - Respiratory Exam Respiratory Exam: Decreased Breath Sounds - Cardiovascular Exam Cardiovascular Exam: REGULAR RHYTHM - GI/Abdominal Exam GI & Abdominal Exam: Tenderness - Extremities Exam Extremities exam: Positive for: normal inspection Results - Vital Signs Recent Vital Signs: Last Vital Signs Temp 98.3 F 03/02/17 08:00 Pulse 60 03/02/17 09:45 Resp 18 03/02/17 08:00 BP 173/63 H 03/02/17 09:45 Pulse Ox 98 03/02/17 08:00 - Labs Result Diagrams: 03/01/17 18:38 03/01/17 18:38 Labs: Laboratory Results - last 24 hr 03/01/17 03/01/17 03/01/17 18:38 18:38 18:38 WBC 8.7 RBC 3.52 L Hgb 11.3 L Hct 33.5 L MCV 95.4 MCH 32.2 H MCHC 33.7 RDW 18.5 H Plt Count 216 MPV 9.9 Neut % (Auto) 71.4 Lymph % (Auto) 18.3 L [place] % (Auto) 7.6 Eos % (Auto) 1.8 Baso % (Auto) 0.9 Neut # 6.2 Lymph # 1.6 [place] # 0.7 Eos # 0.2 Baso # 0.1 Sodium 140 Potassium 4.7 Chloride 99 Carbon Dioxide 27 Anion Gap 19 BUN 31 H Creatinine 4.1 H Est GFR ( Amer) 12 Est GFR (Non-Af Amer) 10 POC Glucose (mg/dL) Random Glucose 246 H Lactic Acid 2.7 H Calcium 9.5 Total Bilirubin 0.7 AST 36 ALT 16 Alkaline Phosphatase 144 H Troponin I Total Protein 8.3 H Albumin 4.5 Globulin 3.8 Albumin/Globulin Ratio 1.2 Amylase Lipase 193 03/01/17 03/02/17 03/02/17 19:27 06:32 10:45 WBC RBC Hgb Hct MCV MCH MCHC RDW Plt Count MPV Neut % (Auto) Lymph % (Auto) [place] % (Auto) Eos % (Auto) Baso % (Auto) Neut # Lymph # [place] # Eos # Baso # Sodium Potassium Chloride Carbon Dioxide Anion Gap BUN Creatinine Est GFR ( Amer) Est GFR (Non-Af Amer) POC Glucose (mg/dL) 239 H Random Glucose Lactic Acid Calcium Total Bilirubin AST ALT Alkaline Phosphatase Troponin I 0.0130 Total Protein Albumin Globulin Albumin/Globulin Ratio Amylase 140 H Lipase 157 03/02/17 10:45 WBC RBC Hgb Hct MCV MCH MCHC RDW Plt Count MPV Neut % (Auto) Lymph % (Auto) [place] % (Auto) Eos % (Auto) Baso % (Auto) Neut # Lymph # [place] # Eos # Baso # Sodium Potassium Chloride Carbon Dioxide Anion Gap BUN Creatinine Est GFR ( Amer) Est GFR (Non-Af Amer) POC Glucose (mg/dL) Random Glucose Lactic Acid 1.5 Calcium Total Bilirubin AST ALT Alkaline Phosphatase Troponin I Total Protein Albumin Globulin Albumin/Globulin Ratio Amylase Lipase Assessment & Plan - Assessment and Plan (Free Text) Assessment: 86 yo female with paroxysmal atrial fibrillation in setting of abdominal pain. Converted to NSR with IV Amiodarone. PMH ESRD, Hypertension, DM2. Mildly elevated Lactate. GI/Surgery evaluation considering ischemic bowel in differential diagnostic studies CT reveal no ischemia. Recommendations: #1 Stop IV Amiodarone #2 Start Po Amiodarone 200mg qd #3 Baseline TFts on Amiodarone #4 Close GI / Surgery F/u
--- NOTE | 2017-03-02 12:06 | CP.PCM.CON ---
Addendum entered and electronically signed by Yesenia Patricia DO 03/02/17 14:54 : Patient seen and examined with Dr. Whelan. No indication for emergent surgery. Patient can follow up with Dr. Whelan at his office as an outpatient in 2 weeks and discuss possibility of further surgical intervention at that time. Advance patient's diet as tolerated. Please contact the surgery team for any further questions or concerns. Thank you for this consult Yeesnia Patricia, PGY2 Original Note: <Yesenia Patricia - Last Filed: 03/02/17 12:14> History of Present Illness - History of Present Illness History of Present Illness: General Surgery consult for Dr. Whelan Consulted for: abdominal pain Patient is an 86F with PMH of afib, ESRD on dialysis, and DM2, who presented to the ER yesterday with abdominal pain after her dialysis session. Patient states that pain is periumbilical, intermittent, does not radiate, and is worse with eating. Patient states that she has been having similar episodes for 3 weeks. Patient denies any nausea, vomiting, diarrhea, hematochezia, melena, fevers, chills, fear of eating, or weight loss. Patient states that pain is improved today and that she had a bowel movement yesterday that was of normal color and consistency, without blood Review of Systems - Review of Systems Review of Systems: 12 point system review conducted with no significant findings except as stated in the HPI Past Patient History - Infectious Disease Hx of Infectious Diseases: None - Tetanus Immunizations Tetanus Immunization: Unknown - Past Medical History & Family History Past Medical History?: Yes - Past Social History Alcohol: None Drugs: Denies - CARDIAC Hx Atrial Fibrillation: No Hx Cardia Arrhythmia: Yes Hx Congestive Heart Failure: No Hx Hypercholesterolemia: Yes Hx Hypertension: Yes - PULMONARY Hx Chronic Obstructive Pulmonary Disease (COPD): No - NEUROLOGICAL Hx Neurological Disorder: No - HEENT Hx HEENT Problems: Yes - RENAL Hx Chronic Kidney Disease: Yes Hx Kidney Stones: No - ENDOCRINE/METABOLIC Hx Hypothyroidism: No - HEMATOLOGICAL/ONCOLOGICAL Hx Anemia: Yes Hx Human Immunodeficiency Virus (HIV): No - INTEGUMENTARY Hx Dermatological Problems: No - MUSCULOSKELETAL/RHEUMATOLOGICAL Hx Arthritis: Yes Hx Rheumatoid Arthritis: No - GASTROINTESTINAL Hx Gastrointestinal Disorders: Yes Hx Gastroesophageal Reflux: Yes - GENITOURINARY/GYNECOLOGICAL Hx Genitourinary Disorders: No - PSYCHIATRIC Hx Substance Use: No - SURGICAL HISTORY Hx Appendectomy: Yes - ANESTHESIA Hx Anesthesia: Yes Hx Anesthesia Reactions: No Hx Malignant Hyperthermia: No Meds Allergies/Adverse Reactions: Allergies Allergy/AdvReac Type Severity Reaction Status Date / Time No Known Allergies Allergy Verified 03/01/17 17:51 - Medications Medications: Current Medications Amiodarone HCl (Cordarone) 200 mg PO DAILY [facility] Amlodipine Besylate (Norvasc) 10 mg PO DAILY [facility] Last Admin: 03/02/17 09:45 Dose: 10 mg Aspirin (Aspirin Chewable) 81 mg PO DAILY [facility] Last Admin: 03/02/17 10:35 Dose: 81 mg Atorvastatin Calcium (Lipitor) 40 mg PO DAILY [facility] Last Admin: 03/02/17 09:45 Dose: 40 mg Clonidine HCl (Catapres) 0.1 mg PO DAILY [facility] Last Admin: 03/02/17 09:45 Dose: 0.1 mg Clopidogrel Bisulfate (Plavix) 75 mg PO DAILY [facility] Last Admin: 03/02/17 09:45 Dose: 75 mg Enoxaparin Sodium (Lovenox) 70 mg SC DAILY [facility] PRN Reason: Protocol Last Admin: 03/02/17 09:45 Dose: 70 mg Gabapentin (Neurontin) 400 mg PO TID [facility] Last Admin: 03/02/17 09:45 Dose: 400 mg Amiodarone HCl 450 mg/ (Dextrose) 259 mls @ 34.53 mls/hr IVPB .Q7H31M [facility]; 1 MG /MIN PRN Reason: Protocol Last Admin: 03/02/17 04:07 Dose: 16.7 mls/hr Insulin Human Lispro (Humalog) 5 units SC DAILY [facility] Last Admin: 03/02/17 09:45 Dose: 5 unit Insulin Human Regular (Humulin R) 0 units SC ACCU-CHECK [facility] PRN Reason: Protocol Last Admin: 03/02/17 06:43 Dose: 2 u Latanoprost (Xalatan Opht) 1 drop OU DAILY [facility] Last Admin: 03/02/17 10:41 Dose: 1 drop Metoprolol Succinate (Toprol Xl) 100 mg PO DAILY [facility] Pantoprazole Sodium (Protonix Ec Tab) 40 mg PO DAILY [facility] Last Admin: 03/02/17 09:45 Dose: 40 mg Polyethylene Glycol (Miralax) 17 gm PO DAILY [facility] Sevelamer HCl (Renagel) 800 mg PO DAILY [facility] Last Admin: 03/02/17 09:45 Dose: 800 mg Timolol Maleate (Timoptic 0.25% Ophth Soln) 1 drop OU BID [facility] Last Admin: 03/02/17 09:45 Dose: 1 drop Zolpidem Tartrate (Ambien) 5 mg PO [facility] Physical Exam - Constitutional Appears: Non-toxic, No Acute Distress - Head Exam Head Exam: ATRAUMATIC, NORMOCEPHALIC - Eye Exam Eye Exam: Normal appearance. absent: Conjunctival injection, Scleral icterus - ENT Exam ENT Exam: Mucous Membranes Moist, Normal Oropharynx - Respiratory Exam Respiratory Exam: NORMAL BREATHING PATTERN. absent: Accessory Muscle Use, Respiratory Distress - Cardiovascular Exam Cardiovascular Exam: RRR - GI/Abdominal Exam GI & Abdominal Exam: Hernia (small defect in the umbilical abdominal wall without any current contents appreciated), Soft, Tenderness (periumbilical). absent: Distended - Extremities Exam Extremities exam: Negative for: calf tenderness, pedal edema, pedal pulses present Additional comments: BL transtarsal amputation - Neurological Exam Neurological exam: Alert, Oriented x3 - Psychiatric Exam Psychiatric exam: Normal Affect, Normal Mood - Skin Skin Exam: Dry, Normal Color, Warm Additional comments: Moderate sized callouses on feet BL with superficial skin breakdown under a callous on right heal, superficial skin breakdown approximately 1cm in diameter on left lower extremity Results - Vital Signs Recent Vital Signs: Last Vital Signs Temp 98.2 F 03/02/17 12:05 Pulse 63 03/02/17 12:05 Resp 18 03/02/17 12:05 BP 158/66 H 03/02/17 12:05 Pulse Ox 93 L 03/02/17 12:05 - Labs Result Diagrams: 03/01/17 18:38 03/01/17 18:38 Labs: Laboratory Results - last 24 hr 03/01/17 03/01/17 03/01/17 18:38 18:38 18:38 WBC 8.7 RBC 3.52 L Hgb 11.3 L Hct 33.5 L MCV 95.4 MCH 32.2 H MCHC 33.7 RDW 18.5 H Plt Count 216 MPV 9.9 Neut % (Auto) 71.4 Lymph % (Auto) 18.3 L [place] % (Auto) 7.6 Eos % (Auto) 1.8 Baso % (Auto) 0.9 Neut # 6.2 Lymph # 1.6 [place] # 0.7 Eos # 0.2 Baso # 0.1 Sodium 140 Potassium 4.7 Chloride 99 Carbon Dioxide 27 Anion Gap 19 BUN 31 H Creatinine 4.1 H Est GFR ( Amer) 12 Est GFR (Non-Af Amer) 10 POC Glucose (mg/dL) Random Glucose 246 H Lactic Acid 2.7 H Calcium 9.5 Total Bilirubin 0.7 AST 36 ALT 16 Alkaline Phosphatase 144 H Troponin I Total Protein 8.3 H Albumin 4.5 Globulin 3.8 Albumin/Globulin Ratio 1.2 Amylase Lipase 193 03/01/17 03/02/17 03/02/17 19:27 06:32 10:45 WBC RBC Hgb Hct MCV MCH MCHC RDW Plt Count MPV Neut % (Auto) Lymph % (Auto) [place] % (Auto) Eos % (Auto) Baso % (Auto) Neut # Lymph # [place] # Eos # Baso # Sodium Potassium Chloride Carbon Dioxide Anion Gap BUN Creatinine Est GFR ( Amer) Est GFR (Non-Af Amer) POC Glucose (mg/dL) 239 H Random Glucose Lactic Acid Calcium Total Bilirubin AST ALT Alkaline Phosphatase Troponin I 0.0130 Total Protein Albumin Globulin Albumin/Globulin Ratio Amylase 140 H Lipase 157 03/02/17 10:45 WBC RBC Hgb Hct MCV MCH MCHC RDW Plt Count MPV Neut % (Auto) Lymph % (Auto) [place] % (Auto) Eos % (Auto) Baso % (Auto) Neut # Lymph # [place] # Eos # Baso # Sodium Potassium Chloride Carbon Dioxide Anion Gap BUN Creatinine Est GFR ( Amer) Est GFR (Non-Af Amer) POC Glucose (mg/dL) Random Glucose Lactic Acid 1.5 Calcium Total Bilirubin AST ALT Alkaline Phosphatase Troponin I Total Protein Albumin Globulin Albumin/Globulin Ratio Amylase Lipase - Imaging and Cardiology CT scan - abdomen Status: Image reviewed by me, Report reviewed by me Assessment & Plan - Assessment and Plan (Free Text) Assessment: 86F with abdominal pain, small reducible fat containing umbilical hernia Plan: -No surgical intervention indicated at this time, patient's abdomen is soft, hernia reduced -Lactic acid wnl today, continue to trend CBC/BMP -Advance diet as tolerated -PRN pain and nausea medication -Recommend stool softener as patient is severely constipated on CT scan -Medical management as per primary team -Will continue to follow Thank you for this consult Discussed with Dr. Whelan, further recs per him Yesenia Patricia, PGY2 <Timmy Whelan - Last Filed: 03/05/17 17:17> Results - Vital Signs Recent Vital Signs: Last Vital Signs Temp 97.9 F 03/03/17 16:41 Pulse 67 03/03/17 16:41 Resp 20 03/03/17 16:41 BP 185/67 H 03/03/17 16:41 Pulse Ox 93 L 03/03/17 16:41 - Labs Result Diagrams: 03/03/17 04:30 03/03/17 04:30 Attending/Attestation - Attestation I have personally seen and examined this patient.: Yes I have fully participated in the care of the patient.: Yes I have reviewed all pertinent clinical information: Yes Notes (Text): 03/05/17 17:15 Pt was seen and examined at bedside Agree with above note and assessment Pt with reducible umbilical hernia with multiple medical condition No surgical intervention indicated at present F.U as out pt after medical condition improved Plan d.w pt in detail Risk and benefit explained in detail
[2017-03-02] MEDS: POLYETHYLENE GLYCOL 3350 17 GM/Dose PACKET PO SCH (12:23)
[2017-03-02] MEDS: Metoprolol Succinate 100 mg XL Tab PO SCH (12:23)
--- NOTE | 2017-03-02 15:30 | CARD ---
APPROVED REPORT EKG Measurement Heart [id number] <Conclusion> Atrial fibrillation Nonspecific intraventricular block T wave abnormality, consider lateral ischemia Abnormal ECG
--- NOTE | 2017-03-02 15:30 | HP ---
CHIEF COMPLAINT: Abdominal pain. HISTORY OF PRESENT ILLNESS: This is an 86-year-old female, a known case of diabetes, hypertension, peripheral vascular disease, end-stage renal disease, status post multiple amputations who was having abdominal pain, for which the patient was evaluated in the emergency room and was discharged, but patient's pain continued, so the patient returned to emergency room and was admitted for further management after finding new onset of atrial fibrillation and abdominal pain. REVIEW OF SYSTEMS: Positive for abdominal pain. Review of system otherwise is negative for headache, dizziness, syncope, loss of consciousness, chest pain, shortness of breath, nausea, vomiting, diarrhea, constipation, any new joint or extremity pain. Review of system of all other organ systems is unremarkable. PAST MEDICAL HISTORY: Significant for diabetes, hypertension, elevated cholesterol, peripheral vascular disease, end-stage renal disease, anemia, arthritis. PAST SURGICAL HISTORY: Remarkable for multiple amputations, parathyroidectomy and end-stage disease related surgery. PERSONAL HISTORY: Patient is currently nonsmoker, nondrinker, no substance abuse. MEDICATIONS: Patient is on multiple medications including aspirin, Lipitor, Neurontin, losartan, hydrochlorothiazide, metoprolol, pantoprazole, amlodipine, clopidogrel, insulin, latanoprost, , timolol, Ambien and clonidine. ALLERGIES: THE PATIENT IS NOT ALLERGIC TO ANY MEDICATIONS. FAMILY HISTORY: Noncontributory. PHYSICAL EXAMINATION GENERAL: Well-built, well-nourished, 86-year-old female, in no acute distress. VITAL SIGNS: Temperature 98.3, pulse 60, respiration 18, blood pressure 173/63, saturations 99%. HEENT: Pupils reacting to light. No nystagmus. Normocephalic and atraumatic skull. The patient is wearing glasses. NECK: No JVD. No thyromegaly. No lymphadenopathy. HEART: S1 and S2, normal and regular. No significant murmur, gallop or rub is heard. LUNGS: Shows good bilateral air entry. No rales or rhonchi. ABDOMEN: Soft and nontender. No organomegaly. No fluid. Bowel sounds are plus and normal. There is no sign of acute abdomen. Patient has minimal epigastric sensitivity and tenderness, but no guarding, no rigidity or rebound. EXTREMITIES: Patient is status post bilateral tarsometatarsal amputation. No edema. No calf swelling. No tenderness. No acute ischemia. Patient had chronic DVT. CENTRAL NERVOUS SYSTEM: Exam is essentially unchanged from patient's usual exam and there is no sign of any acute gross focal, motor or sensory neurological deficits. DIAGNOSTIC DATA: Available diagnostic data reviewed. WBC 8.7, hemoglobin 11.3, hematocrit 33.5, platelets 216. Sodium 140, potassium 4.7, chloride 99, bicarbonate 27, BUN 31, creatinine 4.1. Accu-Cheks are 246 and 239. SMA-12 otherwise is unremarkable. Abdominal CAT scan also does not reveal any acute pathology explaining patient's symptom. EKG show atrial fibrillation with rapid ventricular rate. ADMITTING IMPRESSION: Abdominal pain. Etiology to be determined. New onset of atrial fibrillation, hypertension, diabetes type 2 with hyperglycemia, elevated cholesterol, coronary artery disease, peripheral vascular disease, anemia, arthritis, status post amputations. PLAN: As ordered. Case and plan discussed with the patient and patient's family. Kaushik Hooker MD
--- NOTE | 2017-03-02 16:39 | CP.PCM.CON ---
History of Present Illness - History of Present Illness History of Present Illness: REASONS FOR CONSULT : ESRD ON HD M W F ANEMIA OF CKD .. H/H STABLE PT IS WELL KNOWN TO ME FOR THE LAST 5 YEARS .. 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 Pt is presenting with complaints of abdominal pain onset approximately 1 month ago. Pt in the ER was also found to be in new onset Afib and started on IV amiodarone. Abdominal pain is periumbilical, dull, cramp-like , rated 6/10, constant, no alleviating or aggravating factors, BM yesterday x 2 described as soft, non-bloody, non-tarry, and passing gas. Pt reports having BM every 2days and at times is hard/strain. Pt reports having EGD/Colonoscopy many years ago and recalls it being normal. Pt denies epigastric pain, heartburn or reflux. Pt had a CT A/P which showed periumbilical hernia and moderate stool in colon. ROS: A 12pt ROS was obtained and was negative except as above. PMHx:As stated in HPI PSHx: Bilat Transmetatarsal amputation, Parathyroid surgery, Stent placement bilateral lower extremities, Appendectomy Social: TOB- quit 30 years ago, ETOH- Denies, Drugs- Denies FHx: Denies colon cancer Past Patient History - Infectious Disease Hx of Infectious Diseases: None - Tetanus Immunizations Tetanus Immunization: Unknown - Past Medical History & Family History Past Medical History?: Yes - Past Social History Alcohol: None Drugs: Denies - CARDIAC Hx Atrial Fibrillation: No Hx Cardia Arrhythmia: Yes Hx Congestive Heart Failure: No Hx Hypercholesterolemia: Yes Hx Hypertension: Yes - PULMONARY Hx Chronic Obstructive Pulmonary Disease (COPD): No - NEUROLOGICAL Hx Neurological Disorder: No - HEENT Hx HEENT Problems: Yes - RENAL Hx Chronic Kidney Disease: Yes Hx Kidney Stones: No - ENDOCRINE/METABOLIC Hx Hypothyroidism: No - HEMATOLOGICAL/ONCOLOGICAL Hx Anemia: Yes Hx Human Immunodeficiency Virus (HIV): No - INTEGUMENTARY Hx Dermatological Problems: No - MUSCULOSKELETAL/RHEUMATOLOGICAL Hx Arthritis: Yes Hx Rheumatoid Arthritis: No - GASTROINTESTINAL Hx Gastrointestinal Disorders: Yes Hx Gastroesophageal Reflux: Yes - GENITOURINARY/GYNECOLOGICAL Hx Genitourinary Disorders: No - PSYCHIATRIC Hx Substance Use: No - SURGICAL HISTORY Hx Appendectomy: Yes - ANESTHESIA Hx Anesthesia: Yes Hx Anesthesia Reactions: No Hx Malignant Hyperthermia: No Meds Allergies/Adverse Reactions: Allergies Allergy/AdvReac Type Severity Reaction Status Date / Time No Known Allergies Allergy Verified 03/01/17 17:51 - Medications Medications: Current Medications Amiodarone HCl (Cordarone) 200 mg PO DAILY [facility] Last Admin: 03/02/17 12:23 Dose: 200 mg Amlodipine Besylate (Norvasc) 10 mg PO DAILY [facility] Last Admin: 03/02/17 09:45 Dose: 10 mg Aspirin (Aspirin Chewable) 81 mg PO DAILY [facility] Last Admin: 03/02/17 10:35 Dose: 81 mg Atorvastatin Calcium (Lipitor) 40 mg PO DAILY [facility] Last Admin: 03/02/17 09:45 Dose: 40 mg Clonidine HCl (Catapres) 0.1 mg PO DAILY [facility] Last Admin: 03/02/17 09:45 Dose: 0.1 mg Clopidogrel Bisulfate (Plavix) 75 mg PO DAILY [facility] Last Admin: 03/02/17 09:45 Dose: 75 mg Enoxaparin Sodium (Lovenox) 70 mg SC DAILY [facility] PRN Reason: Protocol Last Admin: 03/02/17 09:45 Dose: 70 mg Gabapentin (Neurontin) 400 mg PO TID [facility] Last Admin: 03/02/17 14:00 Dose: 400 mg Amiodarone HCl 450 mg/ (Dextrose) 259 mls @ 34.53 mls/hr IVPB .Q7H31M [facility]; 1 MG /MIN PRN Reason: Protocol Last Admin: 03/02/17 10:50 Dose: 34.53 mls/hr Insulin Human Lispro (Humalog) 5 units SC DAILY [facility] Last Admin: 03/02/17 09:45 Dose: 5 unit Insulin Human Regular (Humulin R) 0 units SC ACCU-CHECK [facility] PRN Reason: Protocol Last Admin: 03/02/17 12:00 Dose: 1 u Latanoprost (Xalatan Opht) 1 drop OU DAILY [facility] Last Admin: 03/02/17 10:41 Dose: 1 drop Metoprolol Succinate (Toprol Xl) 100 mg PO DAILY [facility] Last Admin: 03/02/17 12:23 Dose: 100 mg Pantoprazole Sodium (Protonix Ec Tab) 40 mg PO DAILY [facility] Last Admin: 03/02/17 09:45 Dose: 40 mg Polyethylene Glycol (Miralax) 17 gm PO DAILY [facility] Last Admin: 03/02/17 12:23 Dose: 17 gm Sevelamer HCl (Renagel) 800 mg PO DAILY [facility] Last Admin: 03/02/17 09:45 Dose: 800 mg Timolol Maleate (Timoptic 0.25% Ophth Soln) 1 drop OU BID [facility] Last Admin: 03/02/17 09:45 Dose: 1 drop Zolpidem Tartrate (Ambien) 5 mg PO [facility] Results - Vital Signs Recent Vital Signs: Last Vital Signs Temp 98.2 F 03/02/17 12:05 Pulse 63 03/02/17 12:23 Resp 18 03/02/17 12:05 BP 158/66 H 03/02/17 12:23 Pulse Ox 93 L 03/02/17 12:05 - Labs Result Diagrams: 03/01/17 18:38 03/01/17 18:38 Labs: Laboratory Results - last 24 hr 03/01/17 03/01/17 03/01/17 18:38 18:38 18:38 WBC 8.7 RBC 3.52 L Hgb 11.3 L Hct 33.5 L MCV 95.4 MCH 32.2 H MCHC 33.7 RDW 18.5 H Plt Count 216 MPV 9.9 Neut % (Auto) 71.4 Lymph % (Auto) 18.3 L [place] % (Auto) 7.6 Eos % (Auto) 1.8 Baso % (Auto) 0.9 Neut # 6.2 Lymph # 1.6 [place] # 0.7 Eos # 0.2 Baso # 0.1 Sodium 140 Potassium 4.7 Chloride 99 Carbon Dioxide 27 Anion Gap 19 BUN 31 H Creatinine 4.1 H Est GFR ( Amer) 12 Est GFR (Non-Af Amer) 10 POC Glucose (mg/dL) Random Glucose 246 H Lactic Acid 2.7 H Calcium 9.5 Total Bilirubin 0.7 AST 36 ALT 16 Alkaline Phosphatase 144 H Troponin I Total Protein 8.3 H Albumin 4.5 Globulin 3.8 Albumin/Globulin Ratio 1.2 Amylase Lipase 193 03/01/17 03/02/17 03/02/17 19:27 06:32 10:45 WBC RBC Hgb Hct MCV MCH MCHC RDW Plt Count MPV Neut % (Auto) Lymph % (Auto) [place] % (Auto) Eos % (Auto) Baso % (Auto) Neut # Lymph # [place] # Eos # Baso # Sodium Potassium Chloride Carbon Dioxide Anion Gap BUN Creatinine Est GFR ( Amer) Est GFR (Non-Af Amer) POC Glucose (mg/dL) 239 H Random Glucose Lactic Acid Calcium Total Bilirubin AST ALT Alkaline Phosphatase Troponin I 0.0130 Total Protein Albumin Globulin Albumin/Globulin Ratio Amylase 140 H Lipase 157 03/02/17 03/02/17 10:45 11:25 WBC RBC Hgb Hct MCV MCH MCHC RDW Plt Count MPV Neut % (Auto) Lymph % (Auto) [place] % (Auto) Eos % (Auto) Baso % (Auto) Neut # Lymph # [place] # Eos # Baso # Sodium Potassium Chloride Carbon Dioxide Anion Gap BUN Creatinine Est GFR ( Amer) Est GFR (Non-Af Amer) POC Glucose (mg/dL) 170 H Random Glucose Lactic Acid 1.5 Calcium Total Bilirubin AST ALT Alkaline Phosphatase Troponin I Total Protein Albumin Globulin Albumin/Globulin Ratio Amylase Lipase Assessment & Plan - Assessment and Plan (Free Text) Assessment: ESRD ON HD M W F .. WILL CONTINUE ANEMIA OF CKD .. H/H STABLE MMP P :C/O PRESENT CARE WILL F/U - Date & Time Date: 03/02/17 Time: 14:00
[2017-03-03 06:11] LABS: HEMATOCRIT 30.6 % (34.0-47.0); MEAN CORPUSCULAR HEMOGLOBIN 31.7 pg (27.0-31.0); MEAN CORPUSCULAR HGB CONC 32.3 g/dL (33.0-37.0); RED CELL DISTRIBUTION WIDTH 18.7 % (11.5-14.5); WHITE BLOOD COUNT 9.4 K/uL (4.8-10.8)
[2017-03-03] MEDS: Insulin Regular 100 units/ml SC SCH ×3 (06:32→17:54)
[2017-03-03 07:27] LABS: ALB/GLOB RATIO 1.2 (1.0-2.1); BILIRUBIN,TOTAL 0.4 mg/dl (0.2-1.3); CALCIUM 8.9 mg/dL (8.4-10.2); POTASSIUM 5.7 MMOL/L (3.6-5.0); TOTAL PROTEIN 7.3 G/DL (6.3-8.2)
[2017-03-03 08:20] VITALS: RESP 20
--- NOTE | 2017-03-03 08:49 | CARD ---
APPROVED REPORT EKG Measurement Heart [id number] <Conclusion> Normal sinus rhythm with sinus arrhythmia Left bundle branch block Abnormal ECG
[2017-03-03] MEDS ORDERED: Magnesium Citrate Oral SOL (300 ml) PO ONE (09:00)
[2017-03-03] MEDS: Insulin Lispro (humaLOG) 100 Units/ml Inj SC SCH (09:38)
[2017-03-03] MEDS: Pantoprazole 40 mg EC Tab PO SCH (09:39)
[2017-03-03] MEDS: Latanoprost 0.005% Opht SOUTION OU SCH (09:42)
[2017-03-03] MEDS: Enoxaparin 80 mg Syringe SC SCH (09:44)
[2017-03-03] MEDS: Timolol 0.25% Ophth SOLN OU SCH ×2 (09:45→16:06)
--- NOTE | 2017-03-03 10:19 | CP.PCM.PN ---
Subjective - Date & Time of Evaluation Date of Evaluation: 03/03/17 Time of Evaluation: 10: - Subjective Subjective: Pt with improvement in abdominal pain. Pt in NSR on Amiodarone PO. No anticoagulation for paroxysmal atrial fibrillation. Can be dc'd from cardiology standpoint f/u as out pt. Objective - Vital Signs/Intake and Output Vital Signs (last 24 hours): Temp Pulse Resp BP Pulse Ox 98.6 F 66 20 195/66 H 95 03/03/17 08:00 03/03/17 08:00 03/03/17 08:00 03/03/17 08:00 03/03/17 08:00 - Medications Medications: Current Medications Amiodarone HCl (Cordarone) 200 mg PO DAILY [facility] Last Admin: 03/02/17 12:23 Dose: 200 mg Amlodipine Besylate (Norvasc) 10 mg PO DAILY [facility] Last Admin: 03/02/17 09:45 Dose: 10 mg Aspirin (Aspirin Chewable) 81 mg PO DAILY [facility] Last Admin: 03/03/17 09:44 Dose: 81 mg Atorvastatin Calcium (Lipitor) 40 mg PO DAILY [facility] Last Admin: 03/03/17 09:39 Dose: 40 mg Clonidine HCl (Catapres) 0.1 mg PO DAILY [facility] Last Admin: 03/02/17 09:45 Dose: 0.1 mg Clopidogrel Bisulfate (Plavix) 75 mg PO DAILY [facility] Last Admin: 03/03/17 09:39 Dose: 75 mg Gabapentin (Neurontin) 400 mg PO TID [facility] Last Admin: 03/03/17 09:39 Dose: 400 mg Insulin Human Lispro (Humalog) 5 units SC DAILY [facility] Last Admin: 03/03/17 09:38 Dose: 5 unit Insulin Human Regular (Humulin R) 0 units SC ACCU-CHECK [facility] PRN Reason: Protocol Last Admin: 03/03/17 06:32 Dose: 1 u Latanoprost (Xalatan Opht) 1 drop OU DAILY [facility] Last Admin: 03/03/17 09:42 Dose: 1 drop Metoprolol Succinate (Toprol Xl) 100 mg PO DAILY [facility] Last Admin: 03/02/17 12:23 Dose: 100 mg Pantoprazole Sodium (Protonix Ec Tab) 40 mg PO DAILY [facility] Last Admin: 03/03/17 09:39 Dose: 40 mg Polyethylene Glycol (Miralax) 17 gm PO DAILY [facility] Last Admin: 03/02/17 12:23 Dose: 17 gm Sevelamer HCl (Renagel) 800 mg PO DAILY [facility] Last Admin: 03/03/17 09:39 Dose: 800 mg Timolol Maleate (Timoptic 0.25% Oph Soln) 1 drop OU BID [facility] Last Admin: 03/03/17 09:45 Dose: 1 drop Zolpidem Tartrate (Ambien) 5 mg PO HS [facility] Last Admin: 03/02/17 22:15 Dose: 5 mg - Labs Labs: 03/03/17 04:30 03/03/17 04:30
--- NOTE | 2017-03-03 11:57 | CP.PCM.DIS ---
Provider - Provider Date of Admission: 03/01/17 21:00 Attending physician: Kaushik Hooker MD Time Spent in preparation of Discharge (in minutes): 30 Diagnosis - Discharge Diagnosis (1) Atrial fibrillation, rapid Status: Acute Hospital Course - Lab Results Lab Results: Most Recent Lab Values WBC 9.4 K/uL (4.8-10.8) 03/03/17 04:30 RBC 3.13 Mil/uL (3.80-5.20) L 03/03/17 04:30 Hgb 9.9 g/dL (12.0-16.0) L 03/03/17 04:30 Hct 30.6 % (34.0-47.0) L 03/03/17 04:30 MCV 98.0 fl (81.0-99.0) D 03/03/17 04:30 MCH 31.7 pg (27.0-31.0) H 03/03/17 04:30 MCHC 32.3 g/dL (33.0-37.0) L 03/03/17 04:30 RDW 18.7 % (11.5-14.5) H 03/03/17 04:30 Plt Count 205 K/uL (130-400) 03/03/17 04:30 MPV 9.9 fl (7.2-11.7) 03/01/17 18:38 Neut % (Auto) 71.4 % (50.0-75.0) 03/01/17 18:38 Lymph % (Auto) 18.3 % (20.0-40.0) L 03/01/17 18:38 [place] % (Auto) 7.6 % (0.0-10.0) 03/01/17 18:38 Eos % (Auto) 1.8 % (0.0-4.0) 03/01/17 18:38 Baso % (Auto) 0.9 % (0.0-2.0) 03/01/17 18:38 Neut # 6.2 K/uL (1.8-7.0) 03/01/17 18:38 Lymph # 1.6 K/uL (1.0-4.3) 03/01/17 18:38 [place] # 0.7 K/uL (0.0-0.8) 03/01/17 18:38 Eos # 0.2 K/uL (0.0-0.7) 03/01/17 18:38 Baso # 0.1 K/uL (0.0-0.2) 03/01/17 18:38 Sodium 138 mmol/l (132-148) 03/03/17 04:30 Potassium 5.7 MMOL/L (3.6-5.0) H 03/03/17 04:30 Chloride 96 mmol/L (98-107) L 03/03/17 04:30 Carbon Dioxide 27 mmol/L (22-30) 03/03/17 04:30 Anion Gap 21 (10-20) H 03/03/17 04:30 BUN 59 mg/dl (7-17) H 03/03/17 04:30 Creatinine 7.6 mg/dL (0.7-1.2) H* D 03/03/17 04:30 Est GFR ( Amer) 6 03/03/17 04:30 Est GFR (Non-Af Amer) 5 03/03/17 04:30 POC Glucose (mg/dL) 118 mg/dL (65-110) H 03/03/17 11:16 Random Glucose 164 mg/dL (65-105) H 03/03/17 04:30 Lactic Acid 1.5 MMOL/L (0.7-2.1) 03/02/17 10:45 Calcium 8.9 mg/dL (8.4-10.2) 03/03/17 04:30 Total Bilirubin 0.4 mg/dl (0.2-1.3) 03/03/17 04:30 AST 30 U/L (14-36) 03/03/17 04:30 ALT 27 U/L (9-52) 03/03/17 04:30 Alkaline Phosphatase 119 U/L (38-126) 03/03/17 04:30 Troponin I 0.0130 ng/mL (0.00-0.120) 03/01/17 19:27 Total Protein 7.3 G/DL (6.3-8.2) 03/03/17 04:30 Albumin 3.9 g/dL (3.5-5.0) 03/03/17 04:30 Globulin 3.4 gm/dL (2.2-3.9) 03/03/17 04:30 Albumin/Globulin Ratio 1.2 (1.0-2.1) 03/03/17 04:30 Amylase 140 U/L (30-110) H 03/02/17 10:45 Lipase 157 U/L (23-300) 03/02/17 10:45 - Hospital Course Hospital Course: 86 YO M w/ PMH of HTN, DMII, 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 A fib was controlled after giveing IV amiodarone. Patient was started on amiodarone, since then heart rate has been nsr. Patient has been cleared by cardio and has been advised to folllow up outpatient. No anticoagulation indicated for the paroxysmal atrial fibrilation. Discharge Exam - Head Exam Head Exam: ATRAUMATIC, NORMOCEPHALIC - Eye Exam Eye Exam: Normal appearance - Respiratory Exam Respiratory Exam: Clear to PA & Lateral. absent: Rales, Rhonchi, Wheezes - Cardiovascular Exam Cardiovascular Exam: REGULAR RHYTHM, +S1, +S2 - GI/Abdominal Exam GI & Abdominal Exam: Normal Bowel Sounds, Soft - Neurological Exam Neurological exam: Alert, CN II-XII Intact, Oriented x3 Discharge Plan - Discharge Medications Prescriptions: Amiodarone [Cordarone] 200 mg PO DAILY #30 tab Polyethylene Glycol 3350 [Miralax] 17 gm PO DAILY #14 packet - Follow Up Plan Condition: GOOD Disposition: HOME/ ROUTINE Additional Instructions: Follow up with PMD in one week after discharge
[2017-03-03] MEDS: POLYETHYLENE GLYCOL 3350 17 GM/Dose PACKET PO SCH (13:34)
[2017-03-03] MEDS: Metoprolol Succinate 100 mg XL Tab PO SCH (13:36)
[2017-03-03 16:41] VITALS: BP 185/67; PULSE 67; TEMP 97.9; O2SAT 93
== END 2017-03-03 18:45 | disposition home or self-care (01) | DRG 308 ==
LOC: H.ER 17:46 → H.ERHOLD 21:00 → H.TEL 22:59
PROVIDERS: ADMIT Internal Medicine; ATTEND Internal Medicine
PROC: 5A1D70Z Performance of Urinary Filtration, Intermittent, Less than 6 Hours Per Day (ICD-10-PCS; principal; 2017-03-03)
DX: I48.0 Paroxysmal atrial fibrillation (principal); N18.6 End stage renal disease; I13.2 Hypertensive heart and chronic kidney disease with heart failure and with stage 5 chronic kidney disease, or end stage renal disease; F03.90 Unspecified dementia, unspecified severity, without behavioral disturbance, psychotic disturbance, mood disturbance, and anxiety; E11.22 Type 2 diabetes mellitus with diabetic chronic kidney disease; J98.11 Atelectasis; D63.1 Anemia in chronic kidney disease; E11.51 Type 2 diabetes mellitus with diabetic peripheral angiopathy without gangrene; E11.65 Type 2 diabetes mellitus with hyperglycemia; I25.10 Atherosclerotic heart disease of native coronary artery without angina pectoris; E78.00 Pure hypercholesterolemia, unspecified; E78.5 Hyperlipidemia, unspecified; I50.9 Heart failure, unspecified; Z79.4 Long term (current) use of insulin; Z95.820 Peripheral vascular angioplasty status with implants and grafts; F32.9 Major depressive disorder, single episode, unspecified; G47.00 Insomnia, unspecified; Z86.73 Personal history of transient ischemic attack (TIA), and cerebral infarction without residual deficits; G89.29 Other chronic pain; K21.9 Gastro-esophageal reflux disease without esophagitis; K42.9 Umbilical hernia without obstruction or gangrene; K44.9 Diaphragmatic hernia without obstruction or gangrene; K59.00 Constipation, unspecified; M19.90 Unspecified osteoarthritis, unspecified site; N20.0 Calculus of kidney; Z79.02 Long term (current) use of antithrombotics/antiplatelets; Z79.899 Other long term (current) drug therapy; Z87.891 Personal history of nicotine dependence; Z90.49 Acquired absence of other specified parts of digestive tract; Z99.2 Dependence on renal dialysis; R59.0 Localized enlarged lymph nodes

== ENCOUNTER 2017-05-03 13:13 | Observation (INO) | payer MEDICARE, MEDICAID ==
[2017-05-03 13:13] VITALS: BMI 33.2
--- NOTE | 2017-05-03 14:28 | ED PDOC ---
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 denies: Fever, Chills, Diarrhea, Chest Pain, Constipation Exacerbating Factors: None Alleviating Factors: None Additional History Per: Patient Additional Complaint(s): /o nausea, vomiting x 2 episodes, ab pain x3 days, decreased appetite; denies diarrhea, abdominal pain at this time; pt on dialysis MWF, did not have dialysis today. Past Medical History Reviewed: Historical Data, Nursing Documentation, Vital Signs Vital Signs: Last Vital Signs Temp 96.5 F L 05/03/17 13:24 Pulse 56 L 05/03/17 13:24 Resp 18 05/03/17 13:24 BP 191/64 H 05/03/17 13:24 Pulse Ox 96 05/03/17 16:05 - Medical History PMH: Anemia, Arthritis, Cardia Arrhythmia, Diabetes (type iI), GERD, HTN, Hypercholesterolemia, End Stage Renal Disease (dialysis M/W/F), Chronic Kidney Disease Denies: Atrial Fibrillation, CHF, COPD, HIV, Hypothyroidism, Kidney Stones, Rheumatoid Arthritis - Surgical History Surgical History: Appendectomy - Family History Family History: States: Hypertension - Living Arrangements Living Arrangements: With Family - Social History Current smoker - smoking cessation education provided: No - Immunization History Hx Tetanus Toxoid Vaccination: (unknown) Hx Influenza Vaccination: Yes Hx Pneumococcal Vaccination: Yes - Home Medications Home Medications: Ambulatory Orders Medication Instructions Recorded Atorvastatin [Lipitor] 40 mg PO DAILY 06/12/16 Gabapentin [Neurontin] 400 mg PO TID 06/12/16 Pantoprazole Sodium [Protonix] 40 mg PO DAILY 06/12/16 Clopidogrel [Plavix] 75 mg PO DAILY 03/01/17 Insulin Aspart, Recombinant 5 units SC BRK 03/01/17 [Novolog] Latanoprost 0.005% Opht [Xalatan 1 drop BOTHEYES HS 03/01/17 Opht] Sevelamer Carbonate [Renvela] 2,400 mg PO WM 03/01/17 Amiodarone HCl [Pacerone] 100 mg PO DAILY 05/03/17 Ascorbic Acid [Vitamin C 500 mg 500 mg PO DAILY 05/03/17 Tab] Cholecalciferol (Vitamin D3) 2,000 unit PO DAILY 05/03/17 [Vitamin D3] Folic Acid/Vit B Complex and C 1 tab PO DAILY 05/03/17 [Rhonda-Lori Tablet] Insulin Aspart [Novolog] 10 unit SC DIN 05/03/17 Losartan [Cozaar] 100 mg PO DAILY 05/03/17 Melatonin [Melatonin] 10 mg PO HS 05/03/17 Metoprolol Succinate [Toprol XL] 100 mg PO DAILY 05/03/17 Multivitamin [Multi-Vitamin Daily] 1 tab PO DAILY 05/03/17 Timolol 0.5% Ophth [Timoptic 0.5% 1 drop EACHEYE DAILY 05/03/17 Ophth Soln] amLODIPine [Norvasc] 5 mg PO DAILY 05/03/17 cloNIDine [Catapres] 0.2 mg PO TID 05/03/17 - Allergies Allergies/Adverse Reactions: Allergies Allergy/AdvReac Type Severity Reaction Status Date / Time No Known Allergies Allergy Verified 05/03/17 13:23 Review of Systems ROS Statement: Except As Marked, All Systems Reviewed And Found Negative Constitutional: Negative for: Fever, Chills Cardiovascular: Negative for: Chest Pain, Palpitations Respiratory: Negative for: Cough, Shortness of Breath Gastrointestinal: Positive for: Nausea, Vomiting, Abdominal Pain. Negative for : Diarrhea Genitourinary Female: Negative for: Dysuria Neurological: Negative for: Weakness, Numbness, Dizziness Physical Exam - Reviewed Nursing Documentation Reviewed: Yes Vital Signs Reviewed: Yes - Physical Exam Appears: Positive for: Uncomfortable Head Exam: Positive for: ATRAUMATIC, NORMAL INSPECTION, NORMOCEPHALIC Eye Exam: Positive for: Normal appearance, EOMI, PERRL Neck: Positive for: Normal, Painless ROM, Supple Cardiovascular/Chest: Positive for: Regular Rate, Rhythm, Chest Non Tender. Negative for: Edema, Gallop, Bradycardia, Tachycardia Respiratory: Positive for: Normal Breath Sounds. Negative for: Decreased Breath Sounds, Accessory Muscle Use, Crackles, Rales, Rhonchi, Stridor, Wheezing , Respiratory Distress Gastrointestinal/Abdominal: Positive for: Bowel Sounds, Soft, Distended (mild). Negative for: Tenderness, Hernia Back: Positive for: Normal Inspection. Negative for: L CVA Tenderness, R CVA Tenderness Extremity: Positive for: Normal ROM. Negative for: Tenderness, Pedal Edema Neurologic/Psych: Positive for: Alert, slip presser II-XII, Oriented. Negative for: Motor/Sensory Deficits, Aphasia, Facial Droop - Laboratory Results Result Diagrams: 05/03/17 16:11 05/03/17 16:11 - ECG ECG: Positive for: Interpreted By Me ECG Rhythm: Positive for: Normal QRS (162), Normal ST Segment, Sinus Bradycardia (rate of 54), Left Bundle Branch Block. Negative for: ST/T Changes Interpretation Of Abn EKG: abnormal ecg w/o change compared to 03/02/2017 except for peaked t waves O2 Sat by Pulse Oximetry: 96 Pulse Ox Interpretation: Normal - Radiology X-Ray: Interpreted by Me X-Ray Interpretation: No Acute Disease Medical Decision Making Medical Decision Making: will admit to dr deborah ramirez, per dr finley will dialysis immediately pt agree's with plan Disposition - Clinical Impression Clinical Impression: Hyperkalemia, Hyperglycemia - Patient ED Disposition Is Patient to be Admitted: Yes Counseled Patient/Family Regarding: Studies Performed, Diagnosis - Disposition Disposition Time: 16:30 Condition: SERIOUS - Pt Status Changed To: Hospital Disposition Of: Observation - POA Present On Arrival: Poor Glycemic Control
--- NOTE | 2017-05-03 15:43 | CT ---
PROCEDURE: CT Abdomen and Pelvis without intravenous contrast HISTORY: abd pain r/o sbo COMPARISON: 03/01/2017 TECHNIQUE: Technique. Contrast Dose: None Radiation dose: Total exam DLP = 993 mGy-cm. This CT exam was performed using one or more of the following dose reduction techniques: Automated exposure control, adjustment of the mA and/or kV according to patient size, and/or use of iterative reconstruction technique. FINDINGS: LOWER THORAX: Minimal right basal discoid atelectasis and/or scarring. Very minimally with more of the right lung base included on this exam than prior hence stability unknown. The prior small bilateral pleural effusions are similar to slightly smaller LIVER: Unremarkable on this non IV contrast enhanced study. No gross lesion or ductal dilatation. GALLBLADDER AND BILE DUCTS: Unremarkable. PANCREAS: Unremarkable. No gross lesion or ductal dilatation. SPLEEN: Unremarkable. ADRENALS: Unremarkable. No mass. KIDNEYS AND URETERS: No hydronephrosis. No gross renal masses on this non IV contrast enhanced study. The sub 5 mm calcifications left intrarenal pelvis possibly vascular and left extra renal pelvis -probably vascular are similar. The prior right 5 mm calcifications appears adjacent right ureter is similar. No proximal right ureteral dilatation suggested 1 mm or smaller additional right calcification lateral to the right common iliac vascular calcifications is similar in appearance is well is noted on axial series 3, image 107 was previously noted axis series 3, image 93 tiny nonobstructing right ureteral calculus or vascular calcifications are considerations. There are additional calcifications in the right hemipelvis which appear posterior to the expected right ureteral course under similar in appearance these border the uterus. Additional anterior course uterine calcifications consistent consistent with calcified uterine fibroids thin similar . VASCULATURE: Extensive atherosclerotic vascular calcifications throughout the abdomen and pelvis No aortic aneurysm. BOWEL: Unremarkable. No obstruction. No gross mural thickening. APPENDIX: Not identified -previously not identified. No pericecal inflammatory changes PERITONEUM: Unremarkable. No free fluid. No free air. LYMPH NODES: Bilateral nonspecific groin benign-appearing lymph nodes the largest is in the left groin 2 x 1 cm. With fatty hilum noted. Similar-appearing No interval worrisome lymphadenopathy noted BLADDER: Unremarkable. REPRODUCTIVE: The uterus is slightly tip towards the right is calcified uterine fibroids suggested. 2 cm left hemipelvic soft tissue density probably is not asymmetrical left ovary in 86-year-old female. It projects closest to the left external iliac vessels. It is similar in appearance BONES: No acute fracture. Inferior right iliac sided sclerotic SI joint arthrosis. Thoraco lumbar spondylosis bilateral superolateral hip joint space narrowing. No gross fracture seen. Marginal osteophytes and lumbar diffuse disc bulges with vacuum disc phenomenon. OTHER FINDINGS: A small fat only containing umbilical hernia noted. IMPRESSION: No small or large bowel obstruction suggested. This left and right stool retention redundant colon Nonvisualized appendix. No gross diverticulitis Extensive atherosclerotic vascular calcifications some of which border the right ureter. Some also project abort within the left intrarenal pelvis and right extra renal pelvises. No interval changes noted. Vascular basis favored. No hydronephrosis or hydroureter
--- NOTE | 2017-05-03 16:01 | RAD ---
HISTORY: Abdominal pain. Portable study 14:46. COMPARISON: 03/02/2017. FINDINGS: LUNGS: No active pulmonary disease. PLEURA: No significant pleural effusion identified, no pneumothorax apparent. CARDIOVASCULAR: Cardiomegaly, mild pulmonary vascular congestion. OSSEOUS STRUCTURES: No significant abnormalities. VISUALIZED UPPER ABDOMEN: Normal. OTHER FINDINGS: None. IMPRESSION: No active disease. No significant interval change compared to the prior examination(s).
[2017-05-03 16:21] LABS: VENOUS BLOOD GAS BASE EXCESS -2.4 mmol/L (0.0-2.0); VENOUS BLOOD GAS PCO2 59 mmHg (40-60); VENOUS BLOOD PH 7.25 (7.32-7.43)
[2017-05-03 16:22] LABS: BASO # 0.1 K/uL (0.0-0.2); BASO % 0.8 % (0.0-2.0); EOS # 0.1 K/uL (0.0-0.7); EOS % 1.2 % (0.0-4.0); HEMATOCRIT 34.7 % (34.0-47.0); LYMPH # 1.3 K/uL (1.0-4.3); MEAN CELL VOLUME 100.5 fl (81.0-99.0); MEAN CORPUSCULAR HEMOGLOBIN 31.2 pg (27.0-31.0); MEAN PLATELET VOLUME 9.8 fl (7.2-11.7); MONO # 0.7 K/uL (0.0-0.8); MONO % 6.9 % (0.0-10.0); NEUT # 7.8 K/uL (1.8-7.0); NEUT % 78.1 % (50.0-75.0); NRBC % 0.1 % (0.0-0.0); RED CELL DISTRIBUTION WIDTH 17.5 % (11.5-14.5)
[2017-05-03 17:05] LABS: ALB/GLOB RATIO 1.2 (1.0-2.1); ALKALINE PHOSPHATASE 121 U/L (38-126); ALT/SGPT 32 U/L (9-52); AMYLASE 170 U/L (30-110); AST/SGOT 25 U/L (14-36); BILIRUBIN,TOTAL 0.3 mg/dl (0.2-1.3); BLOOD UREA NITROGEN 78 mg/dl (7-17); CALCIUM 8.7 mg/dL (8.4-10.2); CARBON DIOXIDE 22 mmol/L (22-30); CHLORIDE 94 mmol/L (98-107); GFR AFRICAN-AMERICAN 4; GLUCOSE,RANDOM 208 mg/dL (65-105); LIPASE 124 U/L (23-300); POTASSIUM 7.3 MMOL/L (3.6-5.0); SODIUM 132 mmol/l (132-148)
[2017-05-03] MEDS ORDERED: Sod Polystyrene Sulf 15 gm/60 ml Susp PO ONE (17:07)
[2017-05-03] MEDS ORDERED: Insulin Regular 100 units/ml IV STA (17:07)
[2017-05-03] MEDS ORDERED: Sod Polystyrene Sulf 15 gm/60 ml Susp ONE (17:37)
[2017-05-03] MEDS ORDERED: Dextrose 50% SYRINGE Inj (50 ml) IVP ONE (17:58)
[2017-05-03] MEDS ORDERED: Dextrose 50% SYRINGE Inj (50 ml) ONE (18:10)
[2017-05-03] MEDS ORDERED: Insulin Regular 100 units/ml ONE (18:10)
[2017-05-03] MEDS: Insulin Lispro (humaLOG) 100 Units/ml Inj SC SCH (21:39)
--- NOTE | 2017-05-03 22:45 | CP.PCM.CON ---
History of Present Illness - History of Present Illness History of Present Illness: REASONS FOR CONSULT : ESRD ON HD M W F .. MISSED HER HD TODAY SEVERE HYPERKALEMIA .. K 7.3 .. IN NEED FOR STAT HD ANEMIA OF CKD .. H/H STABLE ALL EMR REVIEWED .. PT WAS SEEN AND EXAMINED .. 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 denies: Fever, Chills, Diarrhea, Chest Pain, Constipation Exacerbating Factors: None Alleviating Factors: None Additional History Per: Patient Additional Complaint(s): /o nausea, vomiting x 2 episodes, ab pain x3 days, decreased appetite; denies diarrhea, abdominal pain at this time; pt on dialysis MWF, did not have dialysis today. Past Medical History Reviewed: Historical Data, Nursing Documentation, Vital Signs Vital Signs: Last Vital Signs Temp 96.5 F L 05/03/17 13:24 Pulse 56 L 05/03/17 13:24 Resp 18 05/03/17 13:24 BP 191/64 H 05/03/17 13:24 Pulse Ox 96 05/03/17 16:05 - Medical History PMH: Anemia, Arthritis, Cardia Arrhythmia, Diabetes (type iI), GERD, HTN, Hypercholesterolemia, End Stage Renal Disease (dialysis M/W/F), Chronic Kidney Disease Denies: Atrial Fibrillation, CHF, COPD, HIV, Hypothyroidism, Kidney Stones, Rheumatoid Arthritis Past Patient History - Infectious Disease Hx of Infectious Diseases: None - Tetanus Immunizations Tetanus Immunization: Unknown - Past Medical History & Family History Past Medical History?: Yes - Past Social History Smoking Status: Never Smoked - CARDIAC Hx Cardiac Disorders: Yes Hx Cardia Arrhythmia: Yes Hx Hypercholesterolemia: Yes Hx Hypertension: Yes - PULMONARY Hx Respiratory Disorders: No - NEUROLOGICAL Hx Neurological Disorder: No - HEENT Hx HEENT Problems: Yes Hx Glaucoma: Yes - RENAL Hx Chronic Kidney Disease: Yes Hx Dialysis: Yes Type of Dialysis Access: right arm AV shunt Date of Last Dialysis Treatment: 04/30/17 - ENDOCRINE/METABOLIC Hx Endocrine Disorders: Yes Hx Diabetes Mellitus Type 1: Yes - HEMATOLOGICAL/ONCOLOGICAL Hx Blood Disorders: Yes Hx Anemia: Yes - INTEGUMENTARY Hx Dermatological Problems: No - MUSCULOSKELETAL/RHEUMATOLOGICAL Hx Musculoskeletal Disorders: Yes Hx Arthritis: Yes Hx Falls: No - GASTROINTESTINAL Hx Gastrointestinal Disorders: Yes Hx Gastroesophageal Reflux: Yes - GENITOURINARY/GYNECOLOGICAL Hx Genitourinary Disorders: No - PSYCHIATRIC Hx Psychophysiologic Disorder: No Hx Substance Use: No - SURGICAL HISTORY Hx Surgeries: Yes Hx Appendectomy: Yes Other/Comment: bilateral toes amputated - ANESTHESIA Hx Anesthesia: Yes Hx Anesthesia Reactions: No Hx Malignant Hyperthermia: No Meds Allergies/Adverse Reactions: Allergies Allergy/AdvReac Type Severity Reaction Status Date / Time No Known Allergies Allergy Verified 05/03/17 13:23 - Medications Medications: Current Medications Amiodarone HCl (Cordarone) 100 mg PO DAILY [facility] [place] Amlodipine Besylate (Norvasc) 5 mg PO DAILY [facility] Ascorbic Acid (Vitamin C 500 Mg Tab) 500 mg PO DAILY [facility] Atorvastatin Calcium (Lipitor) 40 mg PO DAILY [facility] Cholecalciferol (Vitamin D) 2,000 intlu PO DAILY [facility] [place] Clonidine HCl (Catapres) 0.2 mg PO TID [facility] [place] Clopidogrel Bisulfate (Plavix) 75 mg PO DAILY [facility] Gabapentin (Neurontin) 400 mg PO TID [facility] Heparin Sodium (Porcine) (Heparin) 5,000 units SC Q8 [facility] [place] PRN Reason: Protocol Insulin Human Lispro (Humalog) 10 units SC DIN [facility] Insulin Human Lispro (Humalog) 5 units SC BRK [facility] Insulin Human Lispro (Humalog) 0 units SC ACHS [facility] [place] PRN Reason: Protocol Last Admin: 05/03/17 21:39 Dose: Not Given Latanoprost (Xalatan Opht) 1 drop OU HS [facility] [place] Losartan Potassium (Cozaar) 100 mg PO DAILY [facility] [place] Metoprolol Succinate (Toprol Xl) 100 mg PO DAILY [facility] Multivitamins/Minerals (Therapeutic-M Tab) 1 tab PO DAILY [facility] [place] Pantoprazole Sodium (Protonix Ec Tab) 40 mg PO DAILY [facility] [place] Sevelamer HCl (Renagel) 2,400 mg PO WM [facility] Timolol Maleate (Timoptic 0.5% Ophth Soln) 1 drop OU DAILY [facility] [place] Vitamin B Complex/Vit C/Folic Acid (Nephro-Lori) 1 tab PO DAILY [facility] [place] Results - Vital Signs Recent Vital Signs: Last Vital Signs Temp 97.6 F 05/03/17 19:24 Pulse 60 05/03/17 19:24 Resp 20 05/03/17 19:24 BP 111/53 L 05/03/17 22:24 Pulse Ox 92 L 05/03/17 19:24 - Labs Result Diagrams: 05/03/17 16:11 05/03/17 16:11 Labs: Laboratory Results - last 24 hr 05/03/17 05/03/17 05/03/17 16:11 16:11 16:11 WBC 10.0 RBC 3.45 L Hgb 10.8 L Hct 34.7 MCV 100.5 H D MCH 31.2 H MCHC 31.0 L RDW 17.5 H Plt Count 198 MPV 9.8 Neut % (Auto) 78.1 H Lymph % (Auto) 13.0 L Mora % (Auto) 6.9 Eos % (Auto) 1.2 Baso % (Auto) 0.8 Neut # 7.8 H Lymph # 1.3 Mora # 0.7 Eos # 0.1 Baso # 0.1 PT 12.3 INR 1.1 APTT 33.0 pO2 VBG pH VBG pCO2 VBG HCO3 VBG Total CO2 VBG O2 Sat (Calc) VBG Base Excess VBG Potassium Glucose Lactate FiO2 Crit Value Called To Crit Value Called By Crit Value Read Back Blood Gas Notified Time Sodium 132 Potassium 7.3 H* D Chloride 94 L Carbon Dioxide 22 Anion Gap 23 H BUN 78 H Creatinine 10.8 H* Est GFR ( Amer) 4 Est GFR (Non-Af Amer) 3 POC Glucose (mg/dL) Random Glucose 208 H Calcium 8.7 Total Bilirubin 0.3 AST 25 ALT 32 Alkaline Phosphatase 121 Troponin I < 0.0120 Total Protein 8.0 Albumin 4.4 Globulin 3.6 Albumin/Globulin Ratio 1.2 Amylase 170 H D Lipase 124 Venous Blood Potassium 05/03/17 05/03/17 16:17 17:37 WBC RBC Hgb Hct MCV MCH MCHC RDW Plt Count MPV Neut % (Auto) Lymph % (Auto) Mora % (Auto) Eos % (Auto) Baso % (Auto) Neut # Lymph # Mora # Eos # Baso # PT INR APTT pO2 37 VBG pH 7.25 L VBG pCO2 59 VBG HCO3 22.0 VBG Total CO2 27.7 VBG O2 Sat (Calc) 65.7 H VBG Base Excess -2.4 L VBG Potassium 7.6 H* Glucose 224 H Lactate 0.9 FiO2 21.0 Crit Value Called To Izaiah solo md Crit Value Called By [id number] Crit Value Read Back Y Blood Gas Notified Time 1620 Sodium 132.0 Potassium Chloride 99.0 Carbon Dioxide Anion Gap BUN Creatinine Est GFR ( Amer) Est GFR (Non-Af Amer) POC Glucose (mg/dL) 198 H Random Glucose Calcium Total Bilirubin AST ALT Alkaline Phosphatase Troponin I Total Protein Albumin Globulin Albumin/Globulin Ratio Amylase Lipase Venous Blood Potassium 7.6 H* Assessment & Plan - Assessment and Plan (Free Text) Assessment: ESRD IN NEEDS FOR STAT HD HYPERKALEMIA .. IN NEED FOR STAT HD MMP P : STAT HD .. ARRANGED . .. - Date & Time Date: 05/03/17 Time: 16:00
[2017-05-04] MEDS: Insulin Lispro (humaLOG) 100 Units/ml Inj SC SCH ×4 (06:30→12:00)
[2017-05-04 06:47] LABS: HEMATOCRIT 37.4 % (34.0-47.0); MEAN CORPUSCULAR HEMOGLOBIN 31.7 pg (27.0-31.0); MEAN CORPUSCULAR HGB CONC 31.7 g/dL (33.0-37.0); RED CELL DISTRIBUTION WIDTH 17.3 % (11.5-14.5); WHITE BLOOD COUNT 8.8 K/uL (4.8-10.8)
[2017-05-04 06:57] LABS: ALB/GLOB RATIO 1.1 (1.0-2.1); ALKALINE PHOSPHATASE 135 U/L (38-126); ALT/SGPT 34 U/L (9-52); AST/SGOT 38 U/L (14-36); BILIRUBIN,TOTAL 0.5 mg/dl (0.2-1.3); BLOOD UREA NITROGEN 29 mg/dl (7-17); CALCIUM 9.2 mg/dL (8.4-10.2); CARBON DIOXIDE 33 mmol/L (22-30); CHLORIDE 94 mmol/L (98-107); CHOLESTEROL 132 mg/dL (0-199); GFR AFRICAN-AMERICAN 8; GLUCOSE,RANDOM 150 mg/dL (65-105); POTASSIUM 4.4 MMOL/L (3.6-5.0); SODIUM 139 mmol/l (132-148); TOTAL PROTEIN 8.6 G/DL (6.3-8.2)
[2017-05-04 07:28] LABS: THYROID STIMULATING HORMONE 0.79 mIU/ML (0.46-4.68)
--- NOTE | 2017-05-04 07:40 | CP.PCM.HP ---
History of Present Illness - History of Present Illness History of Present Illness: 86 yo ,f, PMhx/o HTN, DM, CKD 5 on HD MWF was brought to ED with complaints of generalized cramping abdominal pain started 3 days ago associated with nausea and occs 2-5 nonbloddy vomiting started 2 days ago. Patient was supposed to have hemodialysis yesterday . She denies fever, dysuria, rash, cough, chest pain.Patient reports has had constipation for the last 2 weeks. PAtient seen and examined bedside with Dr wong today . Patient reports has had constipation, last BM 2 days ago and today minimal hard stool. 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 ago), Insomnia, & dementia. PSHx: Bilat Transmetatarsal amputation Parathyroid surgery Stent placement bilat lower extremities Appendectomy Social: TOB- quit 30 years ago ETOH- Denies Drugs- Denies Allergies: NKDA Meds: See med list Pharmacy: [facility] Emergency contact: Daughter Tanya [phone] Present on Admission - Present on Admission Any Indicators Present on Admission: No History of DVT/PE: No History of Uncontrolled Diabetes: No Urinary Catheter: No Decubitus Ulcer Present: No Review of Systems - Cardiovascular Cardiovascular: As Per HPI - Respiratory Respiratory: As Per HPI - Gastrointestinal Gastrointestinal: Abdominal Pain, Constipation, Nausea, Vomiting - Musculoskeletal Musculoskeletal: As Per HPI Past Patient History - Infectious Disease Hx of Infectious Diseases: None - Tetanus Immunizations Tetanus Immunization: Unknown - Past Medical History & Family History Past Medical History?: Yes - Past Social History Smoking Status: Never Smoked - CARDIAC Hx Cardiac Disorders: Yes Hx Cardia Arrhythmia: Yes Hx Hypercholesterolemia: Yes Hx Hypertension: Yes - PULMONARY Hx Respiratory Disorders: No - NEUROLOGICAL Hx Neurological Disorder: No - HEENT Hx HEENT Problems: Yes Hx Glaucoma: Yes - RENAL Hx Chronic Kidney Disease: Yes Hx Dialysis: Yes Type of Dialysis Access: right arm AV shunt Date of Last Dialysis Treatment: 04/30/17 - ENDOCRINE/METABOLIC Hx Endocrine Disorders: Yes Hx Diabetes Mellitus Type 1: Yes - HEMATOLOGICAL/ONCOLOGICAL Hx Blood Disorders: Yes Hx Anemia: Yes - INTEGUMENTARY Hx Dermatological Problems: No - MUSCULOSKELETAL/RHEUMATOLOGICAL Hx Musculoskeletal Disorders: Yes Hx Arthritis: Yes Hx Falls: No - GASTROINTESTINAL Hx Gastrointestinal Disorders: Yes Hx Gastroesophageal Reflux: Yes - GENITOURINARY/GYNECOLOGICAL Hx Genitourinary Disorders: No - PSYCHIATRIC Hx Psychophysiologic Disorder: No Hx Substance Use: No - SURGICAL HISTORY Hx Surgeries: Yes Hx Appendectomy: Yes Other/Comment: bilateral toes amputated - ANESTHESIA Hx Anesthesia: Yes Hx Anesthesia Reactions: No Hx Malignant Hyperthermia: No Meds Allergies/Adverse Reactions: Allergies Allergy/AdvReac Type Severity Reaction Status Date / Time No Known Allergies Allergy Verified 05/03/17 13:23 Physical Exam - Constitutional Appears: No Acute Distress - Head Exam Head Exam: ATRAUMATIC, NORMOCEPHALIC - Eye Exam Eye Exam: Normal appearance - ENT Exam ENT Exam: Mucous Membranes Moist - Respiratory Exam Respiratory Exam: Clear to Auscultation Bilateral. absent: Rales, Rhonchi, Wheezes, Stridor - GI/Abdominal Exam GI & Abdominal Exam: Normal Bowel Sounds, Soft. absent: Guarding, Rebound, Tenderness - Extremities Exam Extremities exam: Positive for: normal inspection. Negative for: pedal edema - Neurological Exam Neurological exam: Alert, Normal Gait, Oriented x3 - Psychiatric Exam Psychiatric exam: Normal Affect, Normal Mood - Skin Skin Exam: Intact Results - Vital Signs Recent Vital Signs: Last Vital Signs Temp 98.3 F 05/04/17 05:53 Pulse 69 05/04/17 05:53 Resp 18 05/04/17 05:53 BP 186/77 H 05/04/17 05:53 Pulse Ox 93 L 05/04/17 05:53 - Labs Result Diagrams: 05/04/17 05:50 05/04/17 05:50 Labs: Laboratory Results - last 24 hr 05/03/17 05/03/17 05/03/17 16:11 16:11 16:11 WBC 10.0 RBC 3.45 L Hgb 10.8 L Hct 34.7 MCV 100.5 H D MCH 31.2 H MCHC 31.0 L RDW 17.5 H Plt Count 198 MPV 9.8 Neut % (Auto) 78.1 H Lymph % (Auto) 13.0 L [place] % (Auto) 6.9 Eos % (Auto) 1.2 Baso % (Auto) 0.8 Neut # 7.8 H Lymph # 1.3 Camp # 0.7 Eos # 0.1 Baso # 0.1 PT 12.3 INR 1.1 APTT 33.0 pO2 VBG pH VBG pCO2 VBG HCO3 VBG Total CO2 VBG O2 Sat (Calc) VBG Base Excess VBG Potassium Glucose Lactate FiO2 Crit Value Called To Crit Value Called By Crit Value Read Back Blood Gas Notified Time Sodium 132 Potassium 7.3 H* D Chloride 94 L Carbon Dioxide 22 Anion Gap 23 H BUN 78 H Creatinine 10.8 H* Est GFR ( Amer) 4 Est GFR (Non-Af Amer) 3 POC Glucose (mg/dL) Random Glucose 208 H Calcium 8.7 Total Bilirubin 0.3 AST 25 ALT 32 Alkaline Phosphatase 121 Troponin I < 0.0120 Total Protein 8.0 Albumin 4.4 Globulin 3.6 Albumin/Globulin Ratio 1.2 Triglycerides Cholesterol LDL Cholesterol Direct HDL Cholesterol Amylase 170 H D Lipase 124 TSH 3rd Generation Venous Blood Potassium 05/03/17 05/03/17 05/03/17 16:17 17:37 21:32 WBC RBC Hgb Hct MCV MCH MCHC RDW Plt Count MPV Neut % (Auto) Lymph % (Auto) [place] % (Auto) Eos % (Auto) Baso % (Auto) Neut # Lymph # Camp # Eos # Baso # PT INR APTT pO2 37 VBG pH 7.25 L VBG pCO2 59 VBG HCO3 22.0 VBG Total CO2 27.7 VBG O2 Sat (Calc) 65.7 H VBG Base Excess -2.4 L VBG Potassium 7.6 H* Glucose 224 H Lactate 0.9 FiO2 21.0 Crit Value Called To Izaiah solo md Crit Value Called By 6075 Crit Value Read Back Y Blood Gas Notified Time 1620 Sodium 132.0 Potassium Chloride 99.0 Carbon Dioxide Anion Gap BUN Creatinine Est GFR ( Amer) Est GFR (Non-Af Amer) POC Glucose (mg/dL) 198 H 206 H Random Glucose Calcium Total Bilirubin AST ALT Alkaline Phosphatase Troponin I Total Protein Albumin Globulin Albumin/Globulin Ratio Triglycerides Cholesterol LDL Cholesterol Direct HDL Cholesterol Amylase Lipase TSH 3rd Generation Venous Blood Potassium 7.6 H* 05/04/17 05/04/17 05/04/17 05:36 05:50 05:50 WBC 8.8 RBC 3.74 L Hgb 11.9 L Hct 37.4 MCV 100.0 H MCH 31.7 H MCHC 31.7 L RDW 17.3 H Plt Count 189 MPV Neut % (Auto) Lymph % (Auto) Camp % (Auto) Eos % (Auto) Baso % (Auto) Neut # Lymph # Camp # Eos # Baso # PT INR APTT 32.0 pO2 VBG pH VBG pCO2 VBG HCO3 VBG Total CO2 VBG O2 Sat (Calc) VBG Base Excess VBG Potassium Glucose Lactate FiO2 Crit Value Called To Crit Value Called By Crit Value Read Back Blood Gas Notified Time Sodium Potassium Chloride Carbon Dioxide Anion Gap BUN Creatinine Est GFR ( Amer) Est GFR (Non-Af Amer) POC Glucose (mg/dL) 149 H Random Glucose Calcium Total Bilirubin AST ALT Alkaline Phosphatase Troponin I Total Protein Albumin Globulin Albumin/Globulin Ratio Triglycerides Cholesterol LDL Cholesterol Direct HDL Cholesterol Amylase Lipase TSH 3rd Generation Venous Blood Potassium 05/04/17 05:50 WBC RBC Hgb Hct MCV MCH MCHC RDW Plt Count MPV Neut % (Auto) Lymph % (Auto) [place] % (Auto) Eos % (Auto) Baso % (Auto) Neut # Lymph # Camp # Eos # Baso # PT INR APTT pO2 VBG pH VBG pCO2 VBG HCO3 VBG Total CO2 VBG O2 Sat (Calc) VBG Base Excess VBG Potassium Glucose Lactate FiO2 Crit Value Called To Crit Value Called By Crit Value Read Back Blood Gas Notified Time Sodium 139 Potassium 4.4 Chloride 94 L Carbon Dioxide 33 H Anion Gap 16 BUN 29 H Creatinine 6.2 H Est GFR ( Amer) 8 Est GFR (Non-Af Amer) 6 POC Glucose (mg/dL) Random Glucose 150 H Calcium 9.2 Total Bilirubin 0.5 AST 38 H D ALT 34 Alkaline Phosphatase 135 H Troponin I Total Protein 8.6 H Albumin 4.6 Globulin 4.0 H Albumin/Globulin Ratio 1.1 Triglycerides 137 D Cholesterol 132 LDL Cholesterol Direct 53 HDL Cholesterol 39 Amylase Lipase TSH 3rd Generation 0.79 Venous Blood Potassium Assessment & Plan - Assessment and Plan (Free Text) Plan: 86 yo ,f, PMhx/o HTN, DM, CKD 5 on HD MWF was admitted for hyperkalemia and CKD 1) CKD 5 on HD -s/p hemodialysis yesterday -[employer] consult appreciated. patient cleared to be discharged 2) Hyperkalemia -secondary to CKD -Hemodyalisis - K trending down 4.4 today 3) Constipation -resolved -Colace 4) HTN -norvasc -clonidine 5) DM -SSI 6) DVT Prophylaxis - Heparin
[2017-05-04] MEDS ORDERED: Cholecalciferol 1,000 INTLU TAB PO SCH (09:00)
[2017-05-04] MEDS ORDERED: Multivitamin With Minerals Tab PO SCH (09:00)
[2017-05-04] MEDS ORDERED: Pantoprazole 40 mg EC Tab PO SCH (09:00)
[2017-05-04] MEDS ORDERED: Multivitamin Vitamin B Complex (Nephro-Vite) Tab PO SCH (09:00)
[2017-05-04] MEDS ORDERED: Metoprolol Succinate 100 mg XL Tab PO SCH (09:00)
[2017-05-04] MEDS ORDERED: Magnesium Citrate Oral SOL (300 ml) PO ONE (09:28)
--- NOTE | 2017-05-04 09:32 | CARD ---
APPROVED REPORT EKG Measurement Heart [id number] <Conclusion> Sinus bradycardia Left axis deviation Left bundle branch block Abnormal ECG
--- NOTE | 2017-05-04 14:31 | CP.PCM.DIS ---
Provider - Provider Date of Admission: 05/03/17 17:10 Attending physician: Kaushik Hooker MD Time Spent in preparation of Discharge (in minutes): 20 Hospital Course - Lab Results Lab Results: Most Recent Lab Values WBC 8.8 K/uL (4.8-10.8) 05/04/17 05:50 RBC 3.74 Mil/uL (3.80-5.20) L 05/04/17 05:50 Hgb 11.9 g/dL (12.0-16.0) L 05/04/17 05:50 Hct 37.4 % (34.0-47.0) 05/04/17 05:50 MCV 100.0 fl (81.0-99.0) H 05/04/17 05:50 MCH 31.7 pg (27.0-31.0) H 05/04/17 05:50 MCHC 31.7 g/dL (33.0-37.0) L 05/04/17 05:50 RDW 17.3 % (11.5-14.5) H 05/04/17 05:50 Plt Count 189 K/uL (130-400) 05/04/17 05:50 MPV 9.8 fl (7.2-11.7) 05/03/17 16:11 Neut % (Auto) 78.1 % (50.0-75.0) H 05/03/17 16:11 Lymph % (Auto) 13.0 % (20.0-40.0) L 05/03/17 16:11 [place] % (Auto) 6.9 % (0.0-10.0) 05/03/17 16:11 Eos % (Auto) 1.2 % (0.0-4.0) 05/03/17 16:11 Baso % (Auto) 0.8 % (0.0-2.0) 05/03/17 16:11 Neut # 7.8 K/uL (1.8-7.0) H 05/03/17 16:11 Lymph # 1.3 K/uL (1.0-4.3) 05/03/17 16:11 [place] # 0.7 K/uL (0.0-0.8) 05/03/17 16:11 Eos # 0.1 K/uL (0.0-0.7) 05/03/17 16:11 Baso # 0.1 K/uL (0.0-0.2) 05/03/17 16:11 PT 12.3 Seconds (9.8-13.1) 05/03/17 16:11 INR 1.1 (0.9-1.2) 05/03/17 16:11 APTT 32.0 Seconds (25.6-37.1) 05/04/17 05:50 pO2 37 mm/Hg (30-55) 05/03/17 16:17 VBG pH 7.25 (7.32-7.43) L 05/03/17 16:17 VBG pCO2 59 mmHg (40-60) 05/03/17 16:17 VBG HCO3 22.0 mmol/L 05/03/17 16:17 VBG Total CO2 27.7 mmol/L (22-28) 05/03/17 16:17 VBG O2 Sat (Calc) 65.7 % (40-65) H 05/03/17 16:17 VBG Base Excess -2.4 mmol/L (0.0-2.0) L 05/03/17 16:17 VBG Potassium 7.6 mmol/L (3.6-5.2) H* 05/03/17 16:17 Sodium 132.0 mmol/L (132-148) 05/03/17 16:17 Chloride 99.0 mmol/L (98-107) 05/03/17 16:17 Glucose 224 mg/dL (65-105) H 05/03/17 16:17 Lactate 0.9 mmol/L (0.7-2.1) 05/03/17 16:17 FiO2 21.0 % 05/03/17 16:17 Crit Value Called To Izaiah solo md 05/03/17 16:17 Crit Value Called By [id number] 05/03/17 16:17 Crit Value Read Back Y 05/03/17 16:17 Blood Gas Notified Time 1620 05/03/17 16:17 Sodium 139 mmol/l (132-148) 05/04/17 05:50 Potassium 4.4 MMOL/L (3.6-5.0) 05/04/17 05:50 Chloride 94 mmol/L (98-107) L 05/04/17 05:50 Carbon Dioxide 33 mmol/L (22-30) H 05/04/17 05:50 Anion Gap 16 (10-20) 05/04/17 05:50 BUN 29 mg/dl (7-17) H 05/04/17 05:50 Creatinine 6.2 mg/dl (0.7-1.2) H 05/04/17 05:50 Est GFR ( Amer) 8 05/04/17 05:50 Est GFR (Non-Af Amer) 6 05/04/17 05:50 POC Glucose (mg/dL) 324 mg/dL (65-110) H 05/04/17 10:57 Random Glucose 150 mg/dL (65-105) H 05/04/17 05:50 Calcium 9.2 mg/dL (8.4-10.2) 05/04/17 05:50 Total Bilirubin 0.5 mg/dl (0.2-1.3) 05/04/17 05:50 AST 38 U/L (14-36) H D 05/04/17 05:50 ALT 34 U/L (9-52) 05/04/17 05:50 Alkaline Phosphatase 135 U/L (38-126) H 05/04/17 05:50 Troponin I < 0.0120 ng/mL (0.00-0.120) 05/03/17 16:11 Total Protein 8.6 G/DL (6.3-8.2) H 05/04/17 05:50 Albumin 4.6 g/dL (3.5-5.0) 05/04/17 05:50 Globulin 4.0 gm/dL (2.2-3.9) H 05/04/17 05:50 Albumin/Globulin Ratio 1.1 (1.0-2.1) 05/04/17 05:50 Triglycerides 137 mg/DL (0-149) D 05/04/17 05:50 Cholesterol 132 mg/dL (0-199) 05/04/17 05:50 LDL Cholesterol Direct 53 mg/dL (0-129) 05/04/17 05:50 HDL Cholesterol 39 MG/DL (30-70) 05/04/17 05:50 Amylase 170 U/L (30-110) H D 05/03/17 16:11 Lipase 124 U/L (23-300) 05/03/17 16:11 Vitamin B12 > 1000 pg/mL (239-931) H 05/04/17 05:50 TSH 3rd Generation 0.79 mIU/ML (0.46-4.68) 05/04/17 05:50 Venous Blood Potassium 7.6 mmol/L (3.6-5.2) H* 05/03/17 16:17 - Hospital Course Hospital Course: 86 yo ,f, PMhx/o HTN, DM, CKD 5 on HD MWF was brought to ED with complaints of generalized cramping abdominal pain started 3 days ago associated with nausea and occs 2-5 nonbloddy vomiting started 2 days ago. Patient was supposed to have hemodyalisis yesterday . She denies fever, dysuria, rash, cough, chest pain.Patient reports has had constipation for the last 2 weeks. PAtient seen and examined bedside with Dr hooker today . Patient reports has had constipation, last BM 2 days ago and today minimal hard stool. will give her colace and Mg citrate. Patient s/o hemodialysis yesterday. patient seen by distribution field technician and cleared to be discharged. Diagnosis 1) CKD 5 on HD -s/p hemodialysis yesterday -[place] [employer] consult appreciated 2) Hyperkalemia -secondary to CKD -Hemodyalisis - K trending down 4.4 today 3) Constipation -resolved -Colace 4) HTN -norvasc -clonidine 5) DM - chronic Discharge Exam - Head Exam Head Exam: ATRAUMATIC, NORMOCEPHALIC - Eye Exam Eye Exam: Normal appearance - ENT Exam ENT Exam: Normal Exam - Respiratory Exam Respiratory Exam: Clear to PA & Lateral, NORMAL BREATHING PATTERN. absent: Rales, Rhonchi - Cardiovascular Exam Cardiovascular Exam: REGULAR RHYTHM, +S1, +S2 - GI/Abdominal Exam GI & Abdominal Exam: Normal Bowel Sounds, Soft. absent: Guarding, Rebound, Tenderness - Extremities Exam Extremities exam: normal inspection - Neurological Exam Neurological exam: Alert, Oriented x3 - Psychiatric Exam Psychiatric exam: Normal Affect, Normal Mood - Skin Skin Exam: Intact Discharge Plan - Follow Up Plan Condition: SERIOUS Disposition: HOME/ ROUTINE
[2017-05-04 16:26] VITALS: BP 163/76
[2017-05-04 16:32] VITALS: PULSE 56; RESP 16; TEMP 98.3; O2SAT 95
[2017-05-04] MEDS ORDERED: Insulin Lispro (humaLOG) 100 Units/ml Inj SC SCH (17:00)
--- NOTE | 2017-05-04 17:19 | CP.PCM.PN ---
Subjective - Date & Time of Evaluation Date of Evaluation: 05/04/17 Time of Evaluation: 14:00 - Subjective Subjective: SEEN ON RENAL F/U PRIOR TO HER D/C FEELS MUCH BETTER HAD HD LAST NIGHT FOR SEVERE HYPERKALEMIA K NOW IS GOOD Objective - Vital Signs/Intake and Output Vital Signs (last 24 hours): Temp Pulse Resp BP Pulse Ox 98.3 F 56 L 16 163/76 H 95 05/04/17 16:31 05/04/17 16:31 05/04/17 16:31 05/04/17 16:31 05/04/17 16:31 - Labs Labs: 05/04/17 05:50 05/04/17 05:50 PT 12.3 Seconds (9.8-13.1) 05/03/17 16:11 INR 1.1 (0.9-1.2) 05/03/17 16:11 APTT 32.0 Seconds (25.6-37.1) 05/04/17 05:50 Assessment and Plan - Assessment and Plan (Free Text) Assessment: ESRD .. MISSED HD .. HYPERKALEMIA RECIEVED STAT HD LAST NIGHT CLEAR FOR D/C
[2017-05-04] MEDS ORDERED: Latanoprost 0.005% Opht SOUTION OU SCH (22:00)
== END 2017-05-04 16:40 | disposition home health service (06) ==
LOC: H.ER 13:13 → H.ERHOLD 17:10 → H.TEL 18:51
PROVIDERS: ADMIT Internal Medicine; ATTEND Internal Medicine
DX: E87.5 Hyperkalemia (principal); N18.6 End stage renal disease; I12.0 Hypertensive chronic kidney disease with stage 5 chronic kidney disease or end stage renal disease; D63.1 Anemia in chronic kidney disease; E11.22 Type 2 diabetes mellitus with diabetic chronic kidney disease; K21.9 Gastro-esophageal reflux disease without esophagitis; E78.00 Pure hypercholesterolemia, unspecified; Z99.2 Dependence on renal dialysis; K59.00 Constipation, unspecified; H40.9 Unspecified glaucoma; Z79.4 Long term (current) use of insulin; Z79.02 Long term (current) use of antithrombotics/antiplatelets
CPT/HCPCS: 36415; 71010; 74176; 80053; 80061; 80074; 82150; 82607; 82803; 82948; 83690; 84443; 84484; 85025; 85027; 85610; 85730; 93005; 96374; 99285; G0378; J0610; J1644

== ENCOUNTER 2017-06-15 17:21 | Inpatient (IN) | payer MEDICARE, MEDICAID ==
[2017-06-15 17:21] VITALS: BMI 33.2
--- NOTE | 2017-06-15 18:21 | ED PDOC ---
HPI: Abdomen Time Seen by Provider: 06/15/17 17:41 Chief Complaint (Nursing): Abdominal Pain Chief Complaint (Provider): Abodminal pain History Per: Patient History/Exam Limitations: no limitations Onset/Duration Of Symptoms: Hrs (2) Outside of [place] travel?: No Current Symptoms Are (Timing): Still Present Associated Symptoms: Nausea Additional Complaint(s): 86yo female, with history of diabetes, hypertension, end stage renal disease ( currently on dialysis), presents to ED with complaints of right sided abdominal pain, mainly in mid-abdomen, radiating to her left side 2 hours ago. Patient states the symptoms lasted for an hour and resolved after taking "gas medications." She also states at that time she had nausea but currently, denies any nausea or abdominal pain. He has a history of a hernia on her left side and is concerned it might be involved in her presentation. She denies any vomiting, chest pain, hematemesis, melena, fever, shortness of breath. Of note patient's last BM was yesterday and was normal. No other complaints. Abnormal Vaginal Bleeding: No Past Medical History Reviewed: Historical Data, Nursing Documentation, Vital Signs Vital Signs: Last Vital Signs Temp 97.9 F 06/15/17 17:33 Pulse 56 L 06/15/17 17:33 Resp 19 06/15/17 17:33 BP 178/64 H 06/15/17 17:33 Pulse Ox 95 06/15/17 23:09 - Medical History PMH: Anemia, Arthritis, Cardia Arrhythmia, Diabetes (type iI), GERD, HTN, Hypercholesterolemia, End Stage Renal Disease (dialysis M/W/F), Chronic Kidney Disease Denies: Atrial Fibrillation, CHF, COPD, HIV, Hypothyroidism, Kidney Stones, Rheumatoid Arthritis - Surgical History Surgical History: Appendectomy - Family History Family History: States: Hypertension - Immunization History Hx Tetanus Toxoid Vaccination: (unknown) Hx Influenza Vaccination: Yes Hx Pneumococcal Vaccination: Yes - Home Medications Home Medications: Ambulatory Orders Medication Instructions Recorded Atorvastatin [Lipitor] 40 mg PO DAILY 06/12/16 Gabapentin [Neurontin] 400 mg PO TID 06/12/16 Pantoprazole Sodium [Protonix] 40 mg PO DAILY 06/12/16 Clopidogrel [Plavix] 75 mg PO DAILY 03/01/17 Insulin Aspart, Recombinant 5 units SC BRK 03/01/17 [Novolog] Latanoprost 0.005% Opht [Xalatan 1 drop BOTHEYES HS 03/01/17 Opht] Sevelamer Carbonate [Renvela] 2,400 mg PO WM 03/01/17 Amiodarone HCl [Pacerone] 100 mg PO DAILY 05/03/17 Ascorbic Acid [Vitamin C 500 mg 500 mg PO DAILY 05/03/17 Tab] Cholecalciferol (Vitamin D3) 2,000 unit PO DAILY 05/03/17 [Vitamin D3] Folic Acid/Vit B Complex and C 1 tab PO DAILY 05/03/17 [Rhonda-Lori Tablet] Insulin Aspart [Novolog] 10 unit SC DIN 05/03/17 Losartan [Cozaar] 100 mg PO DAILY 05/03/17 Melatonin 10 mg PO HS 05/03/17 Metoprolol Succinate [Toprol XL] 100 mg PO DAILY 05/03/17 Multivitamin [Multi-Vitamin Daily] 1 tab PO DAILY 05/03/17 Timolol 0.5% Ophth [Timoptic 0.5% 1 drop EACHEYE DAILY 05/03/17 Ophth Soln] amLODIPine [Norvasc] 5 mg PO DAILY 05/03/17 cloNIDine [Catapres] 0.2 mg PO TID 05/03/17 - Allergies Allergies/Adverse Reactions: Allergies Allergy/AdvReac Type Severity Reaction Status Date / Time No Known Allergies Allergy Verified 06/15/17 17:36 Review of Systems ROS Statement: Except As Marked, All Systems Reviewed And Found Negative Constitutional: Negative for: Fever, Chills Cardiovascular: Negative for: Chest Pain Respiratory: Negative for: Shortness of Breath Gastrointestinal: Positive for: Nausea, Abdominal Pain. Negative for: Vomiting , Melena, Hematemesis Physical Exam - Reviewed Nursing Documentation Reviewed: Yes Vital Signs Reviewed: Yes - Physical Exam Appears: Positive for: Well, Non-toxic, No Acute Distress Head Exam: Positive for: ATRAUMATIC, NORMAL INSPECTION, NORMOCEPHALIC Skin: Positive for: Normal Color, Warm, DRY Eye Exam: Positive for: Normal appearance ENT: Positive for: Normal ENT Inspection Neck: Positive for: Normal, Painless ROM Cardiovascular/Chest: Positive for: Regular Rate, Rhythm Respiratory: Positive for: CNT, Normal Breath Sounds Gastrointestinal/Abdominal: Positive for: Normal Exam, Bowel Sounds, Soft. Negative for: Tenderness Back: Positive for: Normal Inspection Extremity: Positive for: Normal ROM Neurologic/Psych: Positive for: Alert, Oriented - Laboratory Results Result Diagrams: 06/15/17 19:00 06/15/17 19:00 - ECG ECG: Positive for: Interpreted By Me (and Dr. Clinton) ECG Rhythm: Positive for: Sinus Bradycardia, Left Bundle Branch Block. Negative for: ST/T Changes Rate: 54 O2 Sat by Pulse Oximetry: 95 (RA) Pulse Ox Interpretation: Normal Interpretation Of Abnormal: LBB present in previous EKG's - Radiology X-Ray: Interpreted by Me (CXR) X-Ray Interpretation: No Acute Disease Medical Decision Making Medical Decision Making: Impression: Abdominal pain Plan: -- CT A/P w/o contrast -- Labs -- EKG -- US Abdomen Reassess Time: 1946 CT Abdomen IMPRESSION: 1. Mild colitis versus underdistention. Clinical correlation is needed. 2. Possible mild interstitial edema. Clinical correlation is needed. 3. Mild cystitis vs underdistention. Correlate with urinalysis. 4. Bibasilar atelectasis versus early pneumonia. 5. Incidental/non-acute findings are described above. Time: 2004 US Abdomen IMPRESSION: 1. Left pleural effusion. Multiple attempts made to start peripheral line without success. 2008 K: 6.7 Cr: 7.4 Insulin 6 units IVP, D50 IVP, albuterol neb x 1 ordered. Time: 2015 Patient seen and evaluated by Dr. Clinton. Patient declines central lines in neck , EJ, groin, femoral lines. She is requesting the line be placed in her left arm. Family at bedside. Time: 2029 More attempts made to place IV without success. Time: 2048 After long discussion, patient agreeable to an EJ line. Right EJ line placed by Dr. Clinton Case d/w Dr. Hooker who knows patient well and arrangements made for admission. Time: 2213 Patient with complaints of shortness of breath. Time: 2214 Code blue initiated. CPR started. Case d/w Dr. Lanza, pt.'s quality assurance/r&d lab technician and informed Scribe Attestation: Documented by Courtney Escobar acting as a scribe for NARCISO Clancy Provider Attestation: All medical record entries made by the Scribe were at my direction and personally dictated by me. I have reviewed the chart and agree that the record accurately reflects my personal performance of the history, physical exam, medical decision making, and the department course for this patient. I have also personally directed, reviewed, and agree with the discharge instructions and disposition. Disposition - Clinical Impression Clinical Impression: Hyperkalemia, End stage chronic kidney disease, PEA (Pulseless electrical activity) - Patient ED Disposition Is Patient to be Admitted: Yes - Disposition Disposition Time: 22:15 Condition: STABLE - Pt Status Changed To: Hospital Disposition Of: Inpatient - Admit Certification Admit to Inpatient:: After my assessment, the patient will require hospitalization for at least two midnights. This is because of the severity of symptoms shown, intensity of services needed, and/or the medical risk in this patient being treated as an outpatient.
--- NOTE | 2017-06-15 19:27 | CT ---
EXAM: CT Abdomen and Pelvis Without Intravenous Contrast CLINICAL HISTORY: 86 years old, female; Pain and signs and symptoms; Nausea; Abdominal pain; Other: Mid abdominal pain; Additional info: Mid-abdominal pain with nausea TECHNIQUE: Axial computed tomography images of the abdomen and pelvis without intravenous contrast. All CT scans at this facility use one or more dose reduction techniques, viz.: automated exposure control; ma/kV adjustment per patient size (including targeted exams where dose is matched to indication; i.e. head); or iterative reconstruction technique. Coronal and sagittal reformatted images were created and reviewed. COMPARISON: No relevant prior studies available. FINDINGS: Limitations: Lack of intravenous contrast. Motion artifact - mild. Lower thorax: Small LEFT pleural effusion. Minimal to mild patchy airspace disease posterior lower lobes, left greater than right. Mild cardiomegaly. Coronary artery calcifications. Mild interlobular septal thickening. 0.3 cm nodule vs focal scarring within right middle lobe. Elevated RIGHT hemidiaphragm. ABDOMEN: Liver: Unremarkable. Gallbladder and bile ducts: No calcified stones. No ductal dilation. Pancreas: Unremarkable. No ductal dilation. Spleen: No splenomegaly. Adrenals: Mild hypertrophy of adrenal glands. Kidneys and ureters: Few small vascular calcifications vs calculi within kidneys. No hydronephrosis. Stomach and bowel: Segmental areas of mild mural thickening vs underdistention of descending, sigmoid colon. No associated inflammatory stranding. Moderate to large stool within cecum, ascending and transverse colon. No obstruction. Appendix: No findings to suggest acute appendicitis. PELVIS: Bladder: Apparent mild bladder wall thickening. Incomplete distention, limiting evaluation. No stones. Reproductive: Probable small calcified uterine fibroid. ABDOMEN and PELVIS: Intraperitoneal space: No significant fluid collection. No free air. Bones/joints: Degenerative changes of spine. No acute fracture. Soft tissues: Tiny umbilical hernia containing fat. Mild diffuse stranding within subcutaneous tissues. Injection granulomas within gluteal soft tissues. Vasculature: Moderate atherosclerotic disease. No aneurysm. Lymph nodes: No pathologically enlarged lymph nodes. IMPRESSION: 1. Mild colitis versus underdistention. Clinical correlation is needed. 2. Possible mild interstitial edema. Clinical correlation is needed. 3. Mild cystitis vs underdistention. Correlate with urinalysis. 4. Bibasilar atelectasis versus early pneumonia. 5. Incidental/non-acute findings are described above.
[2017-06-15 19:35] LABS: BASO # 0.1 K/uL (0.0-0.2); BASO % 1.2 % (0.0-2.0); EOS # 0.2 K/uL (0.0-0.7); EOS % 1.3 % (0.0-4.0); HEMOGLOBIN 12.1 g/dL (12.0-16.0); LYMPH # 1.2 K/uL (1.0-4.3); LYMPH % 10.6 % (20.0-40.0); MEAN CORPUSCULAR HEMOGLOBIN 30.1 pg (27.0-31.0); MEAN CORPUSCULAR HGB CONC 31.3 g/dL (33.0-37.0); MEAN PLATELET VOLUME 10.4 fl (7.2-11.7); MONO # 0.8 K/uL (0.0-0.8); MONO % 7.1 % (0.0-10.0); NEUT # 9.3 K/uL (1.8-7.0); NEUT % 79.8 % (50.0-75.0); RBC 4.02 Mil/uL (3.80-5.20); RED CELL DISTRIBUTION WIDTH 17.3 % (11.5-14.5); WHITE BLOOD COUNT 11.7 K/uL (4.8-10.8)
[2017-06-15 19:54] LABS: ALB/GLOB RATIO 1.1 (1.0-2.1); ALBUMIN 4.4 g/dL (3.5-5.0); ALT/SGPT 26 U/L (9-52); AST/SGOT 43 U/L (14-36); BLOOD UREA NITROGEN 49 mg/dl (7-17); CALCIUM 9.1 mg/dL (8.4-10.2); GFR AFRICAN-AMERICAN 6; GFR NON-AFRICAN AMERICAN 5; LIPASE 83 U/L (23-300)
--- NOTE | 2017-06-15 20:05 | US ---
EXAM: US Abdomen Complete CLINICAL HISTORY: 86 years old, female; Pain; Abdominal pain; Epigastric TECHNIQUE: Real-time ultrasound of the abdomen (complete) with image documentation. COMPARISON: CT - 07/05/2017 FINDINGS: Liver: Normal echogenicity. No mass. No intrahepatic bile duct dilatation. Gallbladder: No gallstones. No wall thickening. No pericholecystic fluid. No sonographic Martini's sign. Common bile duct: No dilatation. No stones. Pancreas: Unremarkable as visualized. Kidneys: Normal echogenicity. No hydronephrosis. Spleen: No splenomegaly. Aorta: Unremarkable. No aneurysm. Inferior vena cava: Unremarkable. Free fluid: No significant free fluid. Pleural space: Small left pleural effusion. IMPRESSION: 1. Left pleural effusion.
[2017-06-15] MEDS ORDERED: Albuterol 0.083% Inhal Sol (2.5 mg/3 mL) UD INH STA (20:09)
[2017-06-15] MEDS ORDERED: Dextrose 50% SYRINGE Inj (50 ml) IVP ONE (20:09)
[2017-06-15] MEDS ORDERED: Insulin Regular 100 units/ml IVP STA (20:09)
[2017-06-15] MEDS ORDERED: Piperacillin/Tazobact 3.375 GM in Sodium Chloride 0.9% 100 ML IVPB STA (20:09)
[2017-06-15 21:19] LABS: VENOUS BLOOD GAS BASE EXCESS -1.2 mmol/L (0.0-2.0); VENOUS BLOOD GAS PCO2 51 mmHg (40-60); VENOUS BLOOD GAS PO2 33 mm/Hg (30-55); VENOUS BLOOD PH 7.31 (7.32-7.43)
[2017-06-15] MEDS ORDERED: Albuterol 0.083% Inhal Sol (2.5 mg/3 mL) UD ONE (21:40)
[2017-06-15] MEDS ORDERED: Piperacillin/Tazobact 3.375 gm Inj IVPB ONE (21:40)
[2017-06-15] MEDS ORDERED: Dextrose 50% SYRINGE Inj (50 ml) ONE (21:41)
[2017-06-15 22:45] LABS: ABG ALLEN TEST YES; ARTERIAL BLOOD GAS HCO3 19.5 mmol/L (21-28); ARTERIAL BLOOD GAS O2 SAT 96.8 % (95-98); ARTERIAL BLOOD GAS PCO2 57 mm/Hg (35-45); ARTERIAL BLOOD GAS PH 7.19 (7.35-7.45); ARTERIAL BLOOD GAS PO2 312 mm/Hg (80-100); ARTERIAL BLOOD GAS TCO2 23.5 mmol/L (22-28)
--- NOTE | 2017-06-15 23:53 | CP.PCM.CON ---
History of Present Illness - History of Present Illness History of Present Illness: PMD: Kaushik Hooker MD Reason for consult: Critical care management Chief Complaint: abdominal Pain/Cardiac Arrest The patient was bob dn examined in the ED HPI: 86 years old female with Hx of Dm; HTN; ESRD on HD MWF, receiving last dialysis on day before this admission, came to the ED with 2 hours of mid abdominal pain radiating to the left side. She stated that the pain was of one hour duration and was relieved after taking gas medication. She also referred nausea but no vomiting, chest pain, fever nor SOB. While in the ED the patient was noted to have a change in mental status and on investigation no pulase was found. At this time the patient was not on a ekg monitor tech. Code [employer] was immediately called with chest compressions, The ekg monitor tech was applied and the patient was found to be in PEA. She received a total of 2mg of epinephrine and Pulse returned. The patient was intubated in the ED and a left Internal jugular line was placed. PMH: Anemia, Arthritis, Cardia Arrhythmia, Diabetes (type II), GERD, HTN, Hypercholesterolemia, End Stage Renal Disease (dialysis M/W/F), Chronic Kidney Disease PSH: Appendectomy SH: Former Smoker; No ETOH; No illegal Drug use; Live with Familu FH: States: Hypertension Allergy: NKDA Medication: Reviewed Review of Systems - Review of Systems Review of Systems: Review of system limited as patient is intubated - Constitutional Constitutional: absent: Chills, Fever, Headache - EENT Eyes: Requires Corrective Lenses Nose/Mouth/Throat: absent: Epistaxis - Cardiovascular Cardiovascular: absent: Dyspnea, Edema - Respiratory Respiratory: absent: Cough - Gastrointestinal Gastrointestinal: Abdominal Pain. absent: Diarrhea, Nausea, Vomiting - Psychiatric Psychiatric: absent: Anxiety, Depression, Panic Attacks - Hematologic/Lymphatic Hematologic: absent: Easy Bleeding, Easy Bruising Past Patient History - Infectious Disease Hx of Infectious Diseases: None - Tetanus Immunizations Tetanus Immunization: Unknown - Past Medical History & Family History Past Medical History?: Yes - Past Social History Smoking Status: Former Smoker Chewing Tobacco Use: No Alcohol: None Drugs: Denies Home Situation {Lives}: With Family - CARDIAC Hx Atrial Fibrillation: No Hx Cardia Arrhythmia: Yes Hx Congestive Heart Failure: No Hx Hypercholesterolemia: Yes Hx Hypertension: Yes - PULMONARY Hx Chronic Obstructive Pulmonary Disease (COPD): No - NEUROLOGICAL Hx Neurological Disorder: No - HEENT Hx HEENT Problems: Yes Hx Glaucoma: Yes - RENAL Hx Chronic Kidney Disease: Yes Hx Kidney Stones: No - ENDOCRINE/METABOLIC Hx Hypothyroidism: No - HEMATOLOGICAL/ONCOLOGICAL Hx Anemia: Yes Hx Human Immunodeficiency Virus (HIV): No - INTEGUMENTARY Hx Dermatological Problems: No - MUSCULOSKELETAL/RHEUMATOLOGICAL Hx Arthritis: Yes Hx Rheumatoid Arthritis: No - GASTROINTESTINAL Hx Gastrointestinal Disorders: Yes Hx Gastroesophageal Reflux: Yes - GENITOURINARY/GYNECOLOGICAL Hx Genitourinary Disorders: No - PSYCHIATRIC Hx Psychophysiologic Disorder: No Hx Substance Use: No - SURGICAL HISTORY Hx Appendectomy: Yes - ANESTHESIA Hx Anesthesia: Yes Hx Anesthesia Reactions: No Hx Malignant Hyperthermia: No Meds Allergies/Adverse Reactions: Allergies Allergy/AdvReac Type Severity Reaction Status Date / Time No Known Allergies Allergy Verified 06/15/17 17:36 Physical Exam - Constitutional Additional comments: Patient intubated an dis on the mechanical Ventilator - Head Exam Head Exam: ATRAUMATIC, NORMAL INSPECTION, NORMOCEPHALIC - Eye Exam Eye Exam: Normal appearance - ENT Exam ENT Exam: Mucous Membranes Moist, Normal Exam, Normal External Ear Exam - Neck Exam Neck exam: Positive for: Normal Inspection. Negative for: Lymphadenopathy, Thyromegaly - Respiratory Exam Additional comments: Inspiratory and expiratory harsh breath sounds - Cardiovascular Exam Cardiovascular Exam: Irregular Rhythm, +S1, +S2 - GI/Abdominal Exam Additional comments: Obesde, soft, no viceromegaleas - Rectal Exam Rectal Exam: Deferred - Extremities Exam Extremities exam: Positive for: normal inspection. Negative for: calf tenderness, pedal edema - Back Exam Back exam: NORMAL INSPECTION - Neurological Exam Additional comments: Post intubated and sedated, no facial droop, no focal neurological deficit - Psychiatric Exam Additional comments: Sedated - Skin Skin Exam: Dry, Intact, Normal Color, Warm Results - Vital Signs Recent Vital Signs: Last Vital Signs Temp 97.9 F 06/15/17 17:33 Pulse 56 L 06/15/17 17:33 Resp 19 06/15/17 17:33 BP 178/64 H 06/15/17 17:33 Pulse Ox 95 06/15/17 23:09 - Labs Result Diagrams: 06/15/17 19:00 06/15/17 19:00 Labs: Laboratory Results - last 24 hr 06/15/17 06/15/17 06/15/17 19:00 19:00 21:10 WBC 11.7 H RBC 4.02 Hgb 12.1 Hct 38.6 MCV 96.0 D MCH 30.1 MCHC 31.3 L RDW 17.3 H Plt Count 175 MPV 10.4 Neut % (Auto) 79.8 H Lymph % (Auto) 10.6 L Faulk % (Auto) 7.1 Eos % (Auto) 1.3 Baso % (Auto) 1.2 Neut # (Auto) 9.3 H Lymph # (Auto) 1.2 Faulk # (Auto) 0.8 Eos # (Auto) 0.2 Baso # (Auto) 0.1 pCO2 pO2 33 HCO3 ABG pH ABG Total CO2 ABG O2 Saturation ABG Base Excess Mendez Test ABG Potassium VBG pH 7.31 L VBG pCO2 51 VBG HCO3 22.9 VBG Total CO2 27.3 VBG O2 Sat (Calc) 66.9 H VBG Base Excess -1.2 L VBG Potassium 6.8 H* A-a O2 Difference Glucose 123 H Lactate 0.9 Vent Mode Mechanical Rate FiO2 21.0 Tidal Volume PEEP Crit Value Called To Dr alyx bautista Crit Value Called By Rt Crit Value Read Back Y Blood Gas Notified Time 2117 Sodium 139 130.0 L Potassium 6.4 H* D Chloride 94 L 94.0 L Carbon Dioxide 30 Anion Gap 21 H BUN 49 H Creatinine 7.9 H* D Est GFR ( Amer) 6 Est GFR (Non-Af Amer) 5 POC Glucose (mg/dL) Random Glucose 72 Calcium 9.1 Total Bilirubin 0.5 AST 43 H ALT 26 Alkaline Phosphatase 118 Troponin I < 0.0120 Total Protein 8.5 H Albumin 4.4 Globulin 4.1 H Albumin/Globulin Ratio 1.1 Lipase 83 Arterial Blood Potassium Venous Blood Potassium 6.8 H* 06/15/17 06/15/17 06/15/17 22:15 22:24 22:30 WBC RBC Hgb Hct MCV MCH MCHC RDW Plt Count MPV Neut % (Auto) Lymph % (Auto) Faulk % (Auto) Eos % (Auto) Baso % (Auto) Neut # (Auto) Lymph # (Auto) Faulk # (Auto) Eos # (Auto) Baso # (Auto) pCO2 pO2 HCO3 ABG pH ABG Total CO2 ABG O2 Saturation ABG Base Excess Mendez Test ABG Potassium VBG pH VBG pCO2 VBG HCO3 VBG Total CO2 VBG O2 Sat (Calc) VBG Base Excess VBG Potassium A-a O2 Difference Glucose Lactate Vent Mode Mechanical Rate FiO2 Tidal Volume PEEP Crit Value Called To Crit Value Called By Crit Value Read Back Blood Gas Notified Time Sodium Potassium Chloride Carbon Dioxide Anion Gap BUN Creatinine Est GFR ( Amer) Est GFR (Non-Af Amer) POC Glucose (mg/dL) 219 H 260 H 282 H Random Glucose Calcium Total Bilirubin AST ALT Alkaline Phosphatase Troponin I Total Protein Albumin Globulin Albumin/Globulin Ratio Lipase Arterial Blood Potassium Venous Blood Potassium 06/15/17 06/15/17 22:35 22:42 WBC RBC Hgb Hct MCV MCH MCHC RDW Plt Count MPV Neut % (Auto) Lymph % (Auto) Faulk % (Auto) Eos % (Auto) Baso % (Auto) Neut # (Auto) Lymph # (Auto) Faulk # (Auto) Eos # (Auto) Baso # (Auto) pCO2 57 H pO2 312 H HCO3 19.5 L ABG pH 7.19 L* ABG Total CO2 23.5 ABG O2 Saturation 96.8 ABG Base Excess -7.0 L Mendez Test Yes ABG Potassium 4.4 VBG pH VBG pCO2 VBG HCO3 VBG Total CO2 VBG O2 Sat (Calc) VBG Base Excess VBG Potassium A-a O2 Difference 330.0 Glucose 310 H Lactate 6.0 H* Vent Mode Prvc/ac Mechanical Rate 12 FiO2 100.0 Tidal Volume 450 PEEP 5 Crit Value Called To Dr kenn bautista Crit Value Called By Rt Crit Value Read Back Y Blood Gas Notified Time 2245 Sodium 133.0 Potassium Chloride 94.0 L Carbon Dioxide Anion Gap BUN Creatinine Est GFR ( Amer) Est GFR (Non-Af Amer) POC Glucose (mg/dL) 239 H Random Glucose Calcium Total Bilirubin AST ALT Alkaline Phosphatase Troponin I Total Protein Albumin Globulin Albumin/Globulin Ratio Lipase Arterial Blood Potassium 4.4 Venous Blood Potassium - Imaging and Cardiology US - abdomen Status: Report reviewed by me Additional comment: EXAM: US Abdomen Complete FINDINGS: Liver: Normal echogenicity. No mass. No intrahepatic bile duct dilatation. Gallbladder: No gallstones. No wall thickening. No pericholecystic fluid. No sonographic Martini's sign. Common bile duct: No dilatation. No stones. Pancreas: Unremarkable as visualized. Kidneys: Normal echogenicity. No hydronephrosis. Spleen: No splenomegaly. Aorta: Unremarkable. No aneurysm. Inferior vena cava: Unremarkable. Free fluid: No significant free fluid. Pleural space: Small left pleural effusion. IMPRESSION: 1. Left pleural effusion. CT scan - abdomen Status: Report reviewed by me Additional comment: EXAM: CT Abdomen and Pelvis Without Intravenous Contrast FINDINGS: Limitations: Lack of intravenous contrast. Motion artifact - mild. Lower thorax: Small LEFT pleural effusion. Minimal to mild patchy airspace disease posterior lower lobes, left greater than right. Mild cardiomegaly. Coronary artery calcifications. Mild interlobular septal thickening. 0.3 cm nodule vs focal scarring within right middle lobe. Elevated RIGHT hemidiaphragm. ABDOMEN: Liver: Unremarkable. Gallbladder and bile ducts: No calcified stones. No ductal dilation. Pancreas: Unremarkable. No ductal dilation. Spleen: No splenomegaly. Adrenals: Mild hypertrophy of adrenal glands. Kidneys and ureters: Few small vascular calcifications vs calculi within kidneys. No hydronephrosis. Stomach and bowel: Segmental areas of mild mural thickening vs underdistention of descending, sigmoid colon. No associated inflammatory stranding. Moderate to large stool within cecum, ascending and transverse colon. No obstruction. Appendix: No findings to suggest acute appendicitis. PELVIS: Bladder: Apparent mild bladder wall thickening. Incomplete distention, limiting evaluation. No stones. Reproductive: Probable small calcified uterine fibroid. ABDOMEN and PELVIS: Intraperitoneal space: No significant fluid collection. No free air. Bones/joints: Degenerative changes of spine. No acute fracture. Soft tissues: Tiny umbilical hernia containing fat. Mild diffuse stranding within subcutaneous tissues. Injection granulomas within gluteal soft tissues. Vasculature: Moderate atherosclerotic disease. No aneurysm. Lymph nodes: No pathologically enlarged lymph nodes. IMPRESSION: 1. Mild colitis versus underdistention. Clinical correlation is needed. 2. Possible mild interstitial edema. Clinical correlation is needed. 3. Mild cystitis vs underdistention. Correlate with urinalysis. 4. Bibasilar atelectasis versus early pneumonia. 5. Incidental/non-acute findings are described above. Assessment & Plan - Assessment and Plan (Free Text) Assessment: #. Cardiac Arrest #. Hyperkalemia #. ESRD on HD #. Mild Colitis #. A Fib 3. HTN #. DM II Plan: 86 years old female with Hx of Dm; HTN; ESRD on HD MWF, receiving last dialysis on day before this admission, came to the ED with 2 hours of mid abdominal pain radiating to the left side which was relieved with her taking gas medication. In the ED the patient was noted to be pulseless and Lyn Aponte was called. She was found to be in PEA when placed on the ekg monitor tech. Pulse returned after the Second Epinephrine was administered with Sodium Bicarbonate and Calcium gluconate. #. Cardiac Arrest probably secondary to the Hyperkalemia, etiology unclear - Patient intubated an don the mechanical ventilataor settings PRBC 16 TV 500 PEEP 5 and Fio2 of 50% - consult Dr Lanza nephrology for Dialysis - Consult Dr David Cardiology #. Hyperkalemia. patient received Sodium bicarbonate and Calcium Carbonate - follow Electrolytes #. ESRD on HD MWF - Dr Lanza consulted for Dialysis #. Mild Colitis - Flagyl - Cipro #. A Fib - Cardiac monitoring - Will restart Amiodarone #. HTN - Manage blood pressure #. DM II - Regular Insulin sliding scale according to Accuchecck #. Stress ulcer Prophylaxis with Pantoprazole #. DVT prophylaxis with Heparin #. Code Status: Full - Date & Time Date: 06/15/17 Time: 23:53
[2017-06-16] MEDS: Ciprofloxacin 200mg/100ml D5W 100 ML IVPB SCH ×3 (01:11→21:00)
[2017-06-16] MEDS: Insulin Regular 100 units/ml SC SCH ×4 (01:13→17:46)
[2017-06-16] MEDS: metroNIDAZOLE 500mg/100ml NS 100 ML IVPB SCH ×3 (01:15→16:32)
[2017-06-16 05:38] LABS: ABG ALLEN TEST YES; ARTERIAL BLOOD GAS HEMOGLOBIN 11.9 g/dL (11.7-17.4); ARTERIAL BLOOD GAS O2 CAPACITY 16.9 mL/dL (16-24); ARTERIAL BLOOD GAS O2 CONTENT 16.2 ML/dL (15-23); ARTERIAL BLOOD GAS O2 SAT 95.6 % (95-98); ARTERIAL BLOOD GAS PCO2 32 mm/Hg (35-45); ARTERIAL BLOOD GAS PH 7.45 (7.35-7.45); ARTERIAL BLOOD GAS PO2 160 mm/Hg (80-100); ARTERIAL BLOOD GAS TCO2 23.2 mmol/L (22-28)
[2017-06-16 06:43] LABS: BASO % 0.2 % (0.0-2.0); HEMOGLOBIN 11.3 g/dL (12.0-16.0); LYMPH # 0.7 K/uL (1.0-4.3); LYMPH % 3.3 % (20.0-40.0); MEAN CELL VOLUME 95.6 fl (81.0-99.0); MEAN CORPUSCULAR HEMOGLOBIN 30.1 pg (27.0-31.0); MEAN CORPUSCULAR HGB CONC 31.5 g/dL (33.0-37.0); MEAN PLATELET VOLUME 10.4 fl (7.2-11.7); MONO # 1.2 K/uL (0.0-0.8); MONO % 5.5 % (0.0-10.0); NEUT # 20.1 K/uL (1.8-7.0); NRBC % 0.1 % (0.0-0.0); PLATELET COUNT 179 K/uL (130-400); RBC 3.75 Mil/uL (3.80-5.20); RED CELL DISTRIBUTION WIDTH 16.7 % (11.5-14.5); WHITE BLOOD COUNT 22.1 K/uL (4.8-10.8)
--- NOTE | 2017-06-16 06:51 | CP.CCUPN ---
CCU Subjective - Physician Review Subjective (Free Text): Repeat CXR at 5Am shows an acute Left Pneumothorax, approx 30%, which was not apparen. in an earlier CXR film. She has a Left IJ TLC in place. She remains intubated on MV support, ABGs reviewed, no signs of worsening tension PTX, but BP is borderline. Will need urgent Chest tube thoracostomy; Surgical team salesperson driver notified. Eyes closed, not responding to verbal commands, minimal withdrawal to deep pain ; she is triggering the ventilator. BP improved from systolic 90s to now [address]. ROS: No other pertinent negs or positives on 10+ system review obtainable from intubated and comatose patient. Allergies: NKDA Home Meds: Lipitor, D3, Catapres, Plavix, MVI, Gabapentin. Cozaar, Toprol, Protonix, Renvela, Timoptic, Amiodarone PMSFH: All other Nursing and physician documentation reviewed to date; no new pertinent info noted relevant to current medical problems. CXR: ETT position OK above jelani, minor scattered interstitial changes, no gross consolidation, small residual basilar PTX on Left ( my interp). EKG; sinus mayito 54/min, old ASWMI ( my interp). CXR: ETT position OK above jelani, clear lung monterroso. IMPRESSION / MAJOR PROBLEMS NOW: 1. s/p Cardiac Arrest manifest by PEA 2 Hyperkalemia, r/o AMI 2. Acute Resp failure 2 #1 3. Post resuscitation Anoxic Encephalopathy 4. Left PTX 2 TLC placement versus CPR 5. h/o ESRD on HD PLAN: 1. K levels normalized and today will again undergo usual course of HD. 2. Left chest tube decompression, r/o loculated PTX, may need CT chest to further clarify if patient is stable for transport. 3. No other MV weans anctipated yet. 4. Neurochecks, HOB elevation, seizure precautions, consider CT brain imaging. 5. See other inputted orders. Time spent with this patient did not overlap with any other provider's medical or critical care time. Additionally the code selected for the services rendered in this note includes the time spent: talking to the patients family, associated physicians and reviewing hospital data/results not listed here which extended to a total of 50 minutes. CCU Objective - Vital Signs / Intake & Output Vital Signs (Last 4 hours): T 99.5F, 110/50, 64, 21 on AC 12 ventilator Intake and Output (Last 8hrs): Intake & Output 06/15/17 06/15/17 06/16/17 14:59 22:59 06:59 Intake Total 140 Balance 140 Weight 150 lb Intake: IV 40 Intake, Piggyback 100 - Medications Active Medications: Active Medications Generic Name Dose Route Start Last Admin Trade Name Freq PRN Reason Stop Dose Admin Amiodarone HCl 100 mg 06/16/17 09:00 Cordarone PO DAILY MOHINDER Amlodipine Besylate 5 mg 06/16/17 09:00 Norvasc PO DAILY MOHINDER Heparin Sodium (Porcine) 5,000 units 06/16/17 01:00 06/16/17 01:10 Heparin SC 5,000 units Q8 MOHINDER Administration Protocol Metronidazole 100 mls @ 100 mls/hr 06/16/17 01:00 06/16/17 01:15 Flagyl 500mg/100ml Ns IVPB 100 mls/hr Q8 MOHINDER Administration Protocol Ciprofloxacin 100 mls @ 100 mls/hr 06/16/17 00:15 06/16/17 01:11 Cipro 200mg/100ml D5w IVPB 100 mls/hr Q12 MOHINDER Administration Sodium Bicarbonate 100 meq/ 1,100 mls @ 40 mls/hr 06/16/17 00:30 06/16/17 01: 11 Sodium Chloride IV 06/17/17 00:16 40 mls/hr .Q24H MOHINDER Administration Insulin Human Regular 0 units 06/16/17 00:15 06/16/17 06:23 Humulin R SC 2 unit Q6H MOHINDER Administration Protocol Pantoprazole Sodium 40 mg 06/16/17 09:00 Protonix Inj IVP DAILY MOHINDER Timolol Maleate 1 drop 06/16/17 09:00 Timoptic 0.5% Ophth Soln OD DAILY MOHINDER - Patient Studies Lab Studies: Lab Studies 06/16/17 06/16/17 06/16/17 Range/Units 06:11 05:22 00:28 WBC (4.8-10.8) K/uL RBC (3.80-5.20) Mil/uL Hgb (12.0-16.0) g/dL Hct (34.0-47.0) % MCV (81.0-99.0) fl MCH (27.0-31.0) pg MCHC (33.0-37.0) g/dL RDW (11.5-14.5) % Plt Count (130-400) K/uL MPV (7.2-11.7) fl Neut % (Auto) (50.0-75.0) % Lymph % (Auto) (20.0-40.0) % Donley % (Auto) (0.0-10.0) % Eos % (Auto) (0.0-4.0) % Baso % (Auto) (0.0-2.0) % Neut # (Auto) (1.8-7.0) K/uL Lymph # (Auto) (1.0-4.3) K/uL Donley # (Auto) (0.0-0.8) K/uL Eos # (Auto) (0.0-0.7) K/uL Baso # (Auto) (0.0-0.2) K/uL pCO2 32 L (35-45) mm/Hg pO2 160 H (30-55) mm/Hg HCO3 24.0 (21-28) mmol/L ABG pH 7.45 (7.35-7.45) ABG Total CO2 23.2 (22-28) mmol/L ABG O2 Saturation 95.6 (95-98) % ABG O2 Content 16.2 (15-23) ML/dL ABG Base Excess -1.1 (-2.0-3.0) mmol/L ABG Hemoglobin 11.9 (11.7-17.4) g/dL ABG Carboxyhemoglobin 0 L (0.5-1.5) % POC ABG HHb (Measured) 4.4 (0.0-5.0) % ABG Methemoglobin 0.6 (0.0-3.0) % ABG O2 Capacity 16.9 (16-24) mL/dL Mendez Test Yes ABG Potassium (3.6-5.2) mmol/L VBG pH (7.32-7.43) VBG pCO2 (40-60) mmHg VBG HCO3 mmol/L VBG Total CO2 (22-28) mmol/L VBG O2 Sat (Calc) (40-65) % VBG Base Excess (0.0-2.0) mmol/L VBG Potassium (3.6-5.2) mmol/L A-a O2 Difference 157.0 mm/Hg Hgb O2 Saturation 95.0 (95.0-98.0) % Glucose (65-105) mg/dL Lactate (0.7-2.1) mmol/L Vent Mode A/c Mechanical Rate 18 FiO2 50.0 % Tidal Volume 500 PEEP 5 Crit Value Called To Crit Value Called By Crit Value Read Back Blood Gas Notified Time Sodium (132-148) mmol/l Potassium (3.6-5.0) MMOL/L Chloride (98-107) mmol/L Carbon Dioxide (22-30) mmol/L Anion Gap (10-20) BUN (7-17) mg/dl Creatinine (0.7-1.2) mg/dl Est GFR ( Amer) Est GFR (Non-Af Amer) POC Glucose (mg/dL) 184 H 177 H (65-110) mg/dL Random Glucose (65-105) mg/dL Calcium (8.4-10.2) mg/dL Total Bilirubin (0.2-1.3) mg/dl AST (14-36) U/L ALT (9-52) U/L Alkaline Phosphatase (38-126) U/L Troponin I (0.00-0.120) ng/mL Total Protein (6.3-8.2) G/DL Albumin (3.5-5.0) g/dL Globulin (2.2-3.9) gm/dL Albumin/Globulin Ratio (1.0-2.1) Lipase (23-300) U/L Arterial Blood Potassium (3.6-5.2) mmol/L Venous Blood Potassium (3.6-5.2) mmol/L 06/15/17 06/15/17 06/15/17 Range/Units 22:42 22:35 22:30 WBC (4.8-10.8) K/uL RBC (3.80-5.20) Mil/uL Hgb (12.0-16.0) g/dL Hct (34.0-47.0) % MCV (81.0-99.0) fl MCH (27.0-31.0) pg MCHC (33.0-37.0) g/dL RDW (11.5-14.5) % Plt Count (130-400) K/uL MPV (7.2-11.7) fl Neut % (Auto) (50.0-75.0) % Lymph % (Auto) (20.0-40.0) % Donley % (Auto) (0.0-10.0) % Eos % (Auto) (0.0-4.0) % Baso % (Auto) (0.0-2.0) % Neut # (Auto) (1.8-7.0) K/uL Lymph # (Auto) (1.0-4.3) K/uL Donley # (Auto) (0.0-0.8) K/uL Eos # (Auto) (0.0-0.7) K/uL Baso # (Auto) (0.0-0.2) K/uL pCO2 57 H (35-45) mm/Hg pO2 312 H (30-55) mm/Hg HCO3 19.5 L (21-28) mmol/L ABG pH 7.19 L* (7.35-7.45) ABG Total CO2 23.5 (22-28) mmol/L ABG O2 Saturation 96.8 (95-98) % ABG O2 Content (15-23) ML/dL ABG Base Excess -7.0 L (-2.0-3.0) mmol/L ABG Hemoglobin (11.7-17.4) g/dL ABG Carboxyhemoglobin (0.5-1.5) % POC ABG HHb (Measured) (0.0-5.0) % ABG Methemoglobin (0.0-3.0) % ABG O2 Capacity (16-24) mL/dL Mendez Test Yes ABG Potassium 4.4 (3.6-5.2) mmol/L VBG pH (7.32-7.43) VBG pCO2 (40-60) mmHg VBG HCO3 mmol/L VBG Total CO2 (22-28) mmol/L VBG O2 Sat (Calc) (40-65) % VBG Base Excess (0.0-2.0) mmol/L VBG Potassium (3.6-5.2) mmol/L A-a O2 Difference 330.0 mm/Hg Hgb O2 Saturation (95.0-98.0) % Glucose 310 H (65-105) mg/dL Lactate 6.0 H* (0.7-2.1) mmol/L Vent Mode Prvc/ac Mechanical Rate 12 FiO2 100.0 % Tidal Volume 450 PEEP 5 Crit Value Called To Dr kenn bautista Crit Value Called By Rt Crit Value Read Back Y Blood Gas Notified Time 2240 Sodium 133.0 (132-148) mmol/l Potassium (3.6-5.0) MMOL/L Chloride 94.0 L (98-107) mmol/L Carbon Dioxide (22-30) mmol/L Anion Gap (10-20) BUN (7-17) mg/dl Creatinine (0.7-1.2) mg/dl Est GFR ( Amer) Est GFR (Non-Af Amer) POC Glucose (mg/dL) 239 H 282 H (65-110) mg/dL Random Glucose (65-105) mg/dL Calcium (8.4-10.2) mg/dL Total Bilirubin (0.2-1.3) mg/dl AST (14-36) U/L ALT (9-52) U/L Alkaline Phosphatase (38-126) U/L Troponin I (0.00-0.120) ng/mL Total Protein (6.3-8.2) G/DL Albumin (3.5-5.0) g/dL Globulin (2.2-3.9) gm/dL Albumin/Globulin Ratio (1.0-2.1) Lipase (23-300) U/L Arterial Blood Potassium 4.4 (3.6-5.2) mmol/L Venous Blood Potassium (3.6-5.2) mmol/L 06/15/17 06/15/17 06/15/17 Range/Units 22:24 22:15 21:10 WBC (4.8-10.8) K/uL RBC (3.80-5.20) Mil/uL Hgb (12.0-16.0) g/dL Hct (34.0-47.0) % MCV (81.0-99.0) fl MCH (27.0-31.0) pg MCHC (33.0-37.0) g/dL RDW (11.5-14.5) % Plt Count (130-400) K/uL MPV (7.2-11.7) fl Neut % (Auto) (50.0-75.0) % Lymph % (Auto) (20.0-40.0) % Donley % (Auto) (0.0-10.0) % Eos % (Auto) (0.0-4.0) % Baso % (Auto) (0.0-2.0) % Neut # (Auto) (1.8-7.0) K/uL Lymph # (Auto) (1.0-4.3) K/uL Donley # (Auto) (0.0-0.8) K/uL Eos # (Auto) (0.0-0.7) K/uL Baso # (Auto) (0.0-0.2) K/uL pCO2 (35-45) mm/Hg pO2 33 (30-55) mm/Hg HCO3 (21-28) mmol/L ABG pH (7.35-7.45) ABG Total CO2 (22-28) mmol/L ABG O2 Saturation (95-98) % ABG O2 Content (15-23) ML/dL ABG Base Excess (-2.0-3.0) mmol/L ABG Hemoglobin (11.7-17.4) g/dL ABG Carboxyhemoglobin (0.5-1.5) % POC ABG HHb (Measured) (0.0-5.0) % ABG Methemoglobin (0.0-3.0) % ABG O2 Capacity (16-24) mL/dL Mendez Test ABG Potassium (3.6-5.2) mmol/L VBG pH 7.31 L (7.32-7.43) VBG pCO2 51 (40-60) mmHg VBG HCO3 22.9 mmol/L VBG Total CO2 27.3 (22-28) mmol/L VBG O2 Sat (Calc) 66.9 H (40-65) % VBG Base Excess -1.2 L (0.0-2.0) mmol/L VBG Potassium 6.8 H* (3.6-5.2) mmol/L A-a O2 Difference mm/Hg Hgb O2 Saturation (95.0-98.0) % Glucose 123 H (65-105) mg/dL Lactate 0.9 (0.7-2.1) mmol/L Vent Mode Mechanical Rate FiO2 21.0 % Tidal Volume PEEP Crit Value Called To Dr alyx bautista Crit Value Called By Rt Crit Value Read Back Y Blood Gas Notified Time 2117 Sodium 130.0 L (132-148) mmol/l Potassium (3.6-5.0) MMOL/L Chloride 94.0 L (98-107) mmol/L Carbon Dioxide (22-30) mmol/L Anion Gap (10-20) BUN (7-17) mg/dl Creatinine (0.7-1.2) mg/dl Est GFR ( Amer) Est GFR (Non-Af Amer) POC Glucose (mg/dL) 260 H 219 H (65-110) mg/dL Random Glucose (65-105) mg/dL Calcium (8.4-10.2) mg/dL Total Bilirubin (0.2-1.3) mg/dl AST (14-36) U/L ALT (9-52) U/L Alkaline Phosphatase (38-126) U/L Troponin I (0.00-0.120) ng/mL Total Protein (6.3-8.2) G/DL Albumin (3.5-5.0) g/dL Globulin (2.2-3.9) gm/dL Albumin/Globulin Ratio (1.0-2.1) Lipase (23-300) U/L Arterial Blood Potassium (3.6-5.2) mmol/L Venous Blood Potassium 6.8 H* (3.6-5.2) mmol/L 02/08/18 02/08/18 Range/Units 19:00 19:00 WBC 11.7 H (4.8-10.8) K/uL RBC 4.02 (3.80-5.20) Mil/uL Hgb 12.1 (12.0-16.0) g/dL Hct 38.6 (34.0-47.0) % MCV 96.0 D (81.0-99.0) fl MCH 30.1 (27.0-31.0) pg MCHC 31.3 L (33.0-37.0) g/dL RDW 17.3 H (11.5-14.5) % Plt Count 175 (130-400) K/uL MPV 10.4 (7.2-11.7) fl Neut % (Auto) 79.8 H (50.0-75.0) % Lymph % (Auto) 10.6 L (20.0-40.0) % Donley % (Auto) 7.1 (0.0-10.0) % Eos % (Auto) 1.3 (0.0-4.0) % Baso % (Auto) 1.2 (0.0-2.0) % Neut # (Auto) 9.3 H (1.8-7.0) K/uL Lymph # (Auto) 1.2 (1.0-4.3) K/uL Donley # (Auto) 0.8 (0.0-0.8) K/uL Eos # (Auto) 0.2 (0.0-0.7) K/uL Baso # (Auto) 0.1 (0.0-0.2) K/uL pCO2 (35-45) mm/Hg pO2 (30-55) mm/Hg HCO3 (21-28) mmol/L ABG pH (7.35-7.45) ABG Total CO2 (22-28) mmol/L ABG O2 Saturation (95-98) % ABG O2 Content (15-23) ML/dL ABG Base Excess (-2.0-3.0) mmol/L ABG Hemoglobin (11.7-17.4) g/dL ABG Carboxyhemoglobin (0.5-1.5) % POC ABG HHb (Measured) (0.0-5.0) % ABG Methemoglobin (0.0-3.0) % ABG O2 Capacity (16-24) mL/dL Mendez Test ABG Potassium (3.6-5.2) mmol/L VBG pH (7.32-7.43) VBG pCO2 (40-60) mmHg VBG HCO3 mmol/L VBG Total CO2 (22-28) mmol/L VBG O2 Sat (Calc) (40-65) % VBG Base Excess (0.0-2.0) mmol/L VBG Potassium (3.6-5.2) mmol/L A-a O2 Difference mm/Hg Hgb O2 Saturation (95.0-98.0) % Glucose (65-105) mg/dL Lactate (0.7-2.1) mmol/L Vent Mode Mechanical Rate FiO2 % Tidal Volume PEEP Crit Value Called To Crit Value Called By Crit Value Read Back Blood Gas Notified Time Sodium 139 (132-148) mmol/l Potassium 6.4 H* D (3.6-5.0) MMOL/L Chloride 94 L (98-107) mmol/L Carbon Dioxide 30 (22-30) mmol/L Anion Gap 21 H (10-20) BUN 49 H (7-17) mg/dl Creatinine 7.9 H* D (0.7-1.2) mg/dl Est GFR ( Amer) 6 Est GFR (Non-Af Amer) 5 POC Glucose (mg/dL) (65-110) mg/dL Random Glucose 72 (65-105) mg/dL Calcium 9.1 (8.4-10.2) mg/dL Total Bilirubin 0.5 (0.2-1.3) mg/dl AST 43 H (14-36) U/L ALT 26 (9-52) U/L Alkaline Phosphatase 118 (38-126) U/L Troponin I < 0.0120 (0.00-0.120) ng/mL Total Protein 8.5 H (6.3-8.2) G/DL Albumin 4.4 (3.5-5.0) g/dL Globulin 4.1 H (2.2-3.9) gm/dL Albumin/Globulin Ratio 1.1 (1.0-2.1) Lipase 83 (23-300) U/L Arterial Blood Potassium (3.6-5.2) mmol/L Venous Blood Potassium (3.6-5.2) mmol/L Laboratory Results - last 24 hr 06/15/17 06/15/17 06/15/17 19:00 19:00 21:10 WBC 11.7 H RBC 4.02 Hgb 12.1 Hct 38.6 MCV 96.0 D MCH 30.1 MCHC 31.3 L RDW 17.3 H Plt Count 175 MPV 10.4 Neut % (Auto) 79.8 H Lymph % (Auto) 10.6 L Donley % (Auto) 7.1 Eos % (Auto) 1.3 Baso % (Auto) 1.2 Neut # (Auto) 9.3 H Lymph # (Auto) 1.2 Donley # (Auto) 0.8 Eos # (Auto) 0.2 Baso # (Auto) 0.1 pCO2 pO2 33 HCO3 ABG pH ABG Total CO2 ABG O2 Saturation ABG O2 Content ABG Base Excess ABG Hemoglobin ABG Carboxyhemoglobin POC ABG HHb (Measured) ABG Methemoglobin ABG O2 Capacity Mendez Test ABG Potassium VBG pH 7.31 L VBG pCO2 51 VBG HCO3 22.9 VBG Total CO2 27.3 VBG O2 Sat (Calc) 66.9 H VBG Base Excess -1.2 L VBG Potassium 6.8 H* A-a O2 Difference Hgb O2 Saturation Glucose 123 H Lactate 0.9 Vent Mode Mechanical Rate FiO2 21.0 Tidal Volume PEEP Crit Value Called To Dr alyx bautista Crit Value Called By Rt Crit Value Read Back Y Blood Gas Notified Time 2117 Sodium 139 130.0 L Potassium 6.4 H* D Chloride 94 L 94.0 L Carbon Dioxide 30 Anion Gap 21 H BUN 49 H Creatinine 7.9 H* D Est GFR ( Amer) 6 Est GFR (Non-Af Amer) 5 POC Glucose (mg/dL) Random Glucose 72 Calcium 9.1 Total Bilirubin 0.5 AST 43 H ALT 26 Alkaline Phosphatase 118 Troponin I < 0.0120 Total Protein 8.5 H Albumin 4.4 Globulin 4.1 H Albumin/Globulin Ratio 1.1 Lipase 83 Arterial Blood Potassium Venous Blood Potassium 6.8 H* 02/08/18 02/08/18 02/08/18 22:15 22:24 22:30 WBC RBC Hgb Hct MCV MCH MCHC RDW Plt Count MPV Neut % (Auto) Lymph % (Auto) Donley % (Auto) Eos % (Auto) Baso % (Auto) Neut # (Auto) Lymph # (Auto) Donley # (Auto) Eos # (Auto) Baso # (Auto) pCO2 pO2 HCO3 ABG pH ABG Total CO2 ABG O2 Saturation ABG O2 Content ABG Base Excess ABG Hemoglobin ABG Carboxyhemoglobin POC ABG HHb (Measured) ABG Methemoglobin ABG O2 Capacity Mendez Test ABG Potassium VBG pH VBG pCO2 VBG HCO3 VBG Total CO2 VBG O2 Sat (Calc) VBG Base Excess VBG Potassium A-a O2 Difference Hgb O2 Saturation Glucose Lactate Vent Mode Mechanical Rate FiO2 Tidal Volume PEEP Crit Value Called To Crit Value Called By Crit Value Read Back Blood Gas Notified Time Sodium Potassium Chloride Carbon Dioxide Anion Gap BUN Creatinine Est GFR ( Amer) Est GFR (Non-Af Amer) POC Glucose (mg/dL) 219 H 260 H 282 H Random Glucose Calcium Total Bilirubin AST ALT Alkaline Phosphatase Troponin I Total Protein Albumin Globulin Albumin/Globulin Ratio Lipase Arterial Blood Potassium Venous Blood Potassium 06/15/17 06/15/17 06/16/17 22:35 22:42 00:28 WBC RBC Hgb Hct MCV MCH MCHC RDW Plt Count MPV Neut % (Auto) Lymph % (Auto) Donley % (Auto) Eos % (Auto) Baso % (Auto) Neut # (Auto) Lymph # (Auto) Donley # (Auto) Eos # (Auto) Baso # (Auto) pCO2 57 H pO2 312 H HCO3 19.5 L ABG pH 7.19 L* ABG Total CO2 23.5 ABG O2 Saturation 96.8 ABG O2 Content ABG Base Excess -7.0 L ABG Hemoglobin ABG Carboxyhemoglobin POC ABG HHb (Measured) ABG Methemoglobin ABG O2 Capacity Mendez Test Yes ABG Potassium 4.4 VBG pH VBG pCO2 VBG HCO3 VBG Total CO2 VBG O2 Sat (Calc) VBG Base Excess VBG Potassium A-a O2 Difference 330.0 Hgb O2 Saturation Glucose 310 H Lactate 6.0 H* Vent Mode Prvc/ac Mechanical Rate 12 FiO2 100.0 Tidal Volume 450 PEEP 5 Crit Value Called To Dr kenn bautista Crit Value Called By Rt Crit Value Read Back Y Blood Gas Notified Time 2245 Sodium 133.0 Potassium Chloride 94.0 L Carbon Dioxide Anion Gap BUN Creatinine Est GFR ( Amer) Est GFR (Non-Af Amer) POC Glucose (mg/dL) 239 H 177 H Random Glucose Calcium Total Bilirubin AST ALT Alkaline Phosphatase Troponin I Total Protein Albumin Globulin Albumin/Globulin Ratio Lipase Arterial Blood Potassium 4.4 Venous Blood Potassium 06/16/17 06/16/17 05:22 06:11 WBC RBC Hgb Hct MCV MCH MCHC RDW Plt Count MPV Neut % (Auto) Lymph % (Auto) Donley % (Auto) Eos % (Auto) Baso % (Auto) Neut # (Auto) Lymph # (Auto) Donley # (Auto) Eos # (Auto) Baso # (Auto) pCO2 32 L pO2 160 H HCO3 24.0 ABG pH 7.45 ABG Total CO2 23.2 ABG O2 Saturation 95.6 ABG O2 Content 16.2 ABG Base Excess -1.1 ABG Hemoglobin 11.9 ABG Carboxyhemoglobin 0 L POC ABG HHb (Measured) 4.4 ABG Methemoglobin 0.6 ABG O2 Capacity 16.9 Mendez Test Yes ABG Potassium VBG pH VBG pCO2 VBG HCO3 VBG Total CO2 VBG O2 Sat (Calc) VBG Base Excess VBG Potassium A-a O2 Difference 157.0 Hgb O2 Saturation 95.0 Glucose Lactate Vent Mode A/c Mechanical Rate 18 FiO2 50.0 Tidal Volume 500 PEEP 5 Crit Value Called To Crit Value Called By Crit Value Read Back Blood Gas Notified Time Sodium Potassium Chloride Carbon Dioxide Anion Gap BUN Creatinine Est GFR ( Amer) Est GFR (Non-Af Amer) POC Glucose (mg/dL) 184 H Random Glucose Calcium Total Bilirubin AST ALT Alkaline Phosphatase Troponin I Total Protein Albumin Globulin Albumin/Globulin Ratio Lipase Arterial Blood Potassium Venous Blood Potassium Radiology Interpretations (Free Text): See Above EKG/Cardiology Studies: see above Fingerstick Blood Sugar Results: 184 Review of Systems - Review of Systems All systems: reviewed and no additional remarkable complaints except (as above) Critical Care Progress Note - Ventilator Checklist Head of Bed 30 Degrees: Yes Daily Sedation Vacation: No (comatose) Daily Assessment of Readiness to Wean: No (comatose) Daily Spontaneous Breathing Trial: No (comatose) PUD Prophalyxis: Yes DVT Prophylaxis: Yes Oral Care with Chlorhexidine Gluconate {CHG}: Yes - Vent Settings MODE:: ASSIST CONTROL TIDAL VOLUME:: 500 RESP RATE:: 18 FIO2:: 50 PEEP:: 5 - Extremities/Vascular Does the Patient have a Central Venous Catheter?: Yes Insertion Site: Internal Jugular Vein Does the Patient need a Central Venous Catheter?: Yes Does the Patient have a [place] Catheter?: Yes Does the Patient need a [place] Catheter?: Yes Catheter Insertion Criteria: Need for accurate measurement of output in critically ill patient - Prophylaxis GI Prophylaxis GI: PPI - Prophylaxis DVT Prophylaxis DVT: SCDs - Nutrition Nutrition: Nutrition Category Date Time Status NPO Diet [DIET] Diets 06/15/17 Breakfast Active
[2017-06-16] MEDS ORDERED: Lidocaine 1% Inj (20ml) IJ ONE (06:53)
[2017-06-16 07:50] LABS: CALCIUM 9.5 mg/dL (8.4-10.2)
--- NOTE | 2017-06-16 08:03 | CP.PCM.CON ---
History of Present Illness - History of Present Illness History of Present Illness: General Surgery: Dr Gu Surgical team called to evaluate pt emergently for left ptx. Pt presented to ED last night, had left IJ placed. It is reported to me pt also underwent code blue which involved compressions. This mornings CXR demonstrated a left sided ptx. Pt is hypotensive and on a ventilator. Daughter and granddaughter (who is a nurse) are present bedside. Conversation with family as well as Dr Cleveland, vegetable thinner, took place. Family agreed to bedside thoracostomy tube placement. Review of Systems - Review of Systems Systems not reviewed;Unavailable: Acuity of Condition, Unstable Vital Signs, Intubated Past Patient History - Infectious Disease Hx of Infectious Diseases: None - Tetanus Immunizations Tetanus Immunization: Unknown - Past Medical History & Family History Past Medical History?: Yes - Past Social History Smoking Status: Former Smoker Chewing Tobacco Use: No Alcohol: None Drugs: Denies Home Situation {Lives}: With Family - CARDIAC Hx Atrial Fibrillation: No Hx Cardia Arrhythmia: Yes Hx Congestive Heart Failure: No Hx Hypercholesterolemia: Yes Hx Hypertension: Yes - PULMONARY Hx Chronic Obstructive Pulmonary Disease (COPD): No - NEUROLOGICAL Hx Neurological Disorder: No - HEENT Hx HEENT Problems: Yes Hx Glaucoma: Yes - RENAL Hx Chronic Kidney Disease: Yes Hx Kidney Stones: No - ENDOCRINE/METABOLIC Hx Hypothyroidism: No - HEMATOLOGICAL/ONCOLOGICAL Hx Anemia: Yes Hx Human Immunodeficiency Virus (HIV): No - INTEGUMENTARY Hx Dermatological Problems: No - MUSCULOSKELETAL/RHEUMATOLOGICAL Hx Arthritis: Yes Hx Rheumatoid Arthritis: No - GASTROINTESTINAL Hx Gastrointestinal Disorders: Yes Hx Gastroesophageal Reflux: Yes - GENITOURINARY/GYNECOLOGICAL Hx Genitourinary Disorders: No - PSYCHIATRIC Hx Psychophysiologic Disorder: No Hx Substance Use: No - SURGICAL HISTORY Hx Appendectomy: Yes - ANESTHESIA Hx Anesthesia: Yes Hx Anesthesia Reactions: No Hx Malignant Hyperthermia: No Meds Allergies/Adverse Reactions: Allergies Allergy/AdvReac Type Severity Reaction Status Date / Time No Known Allergies Allergy Verified 06/15/17 17:36 - Medications Medications: Current Medications Amiodarone HCl (Cordarone) 100 mg PO DAILY MOHINDER Amlodipine Besylate (Norvasc) 5 mg PO DAILY [facility] Heparin Sodium (Porcine) (Heparin) 5,000 units SC Q8 MOHINDER PRN Reason: Protocol Last Admin: 06/16/17 01:10 Dose: 5,000 units Metronidazole (Flagyl 500mg/100ml Ns) 100 mls @ 100 mls/hr IVPB Q8 MOHINDER PRN Reason: Protocol Last Admin: 06/16/17 01:15 Dose: 100 mls/hr Ciprofloxacin (Cipro 200mg/100ml D5w) 100 mls @ 100 mls/hr IVPB Q12 [facility] Last Admin: 06/16/17 01:11 Dose: 100 mls/hr Sodium Bicarbonate 100 meq/ (Sodium Chloride) 1,100 mls @ 40 mls/hr IV .Q24H [facility] Stop: 06/17/17 00:16 Last Admin: 06/16/17 01:11 Dose: 40 mls/hr Insulin Human Regular (Humulin R) 0 units SC Q6H MOHINDER PRN Reason: Protocol Last Admin: 06/16/17 06:23 Dose: 2 unit Pantoprazole Sodium (Protonix Inj) 40 mg IVP DAILY [facility] Timolol Maleate (Timoptic 0.5% Ophth Soln) 1 drop OD DAILY [facility] Physical Exam - Constitutional Appears: Toxic, In Acute Distress - ENT Exam ENT Exam: Mucous Membranes Dry - Respiratory Exam Respiratory Exam: absent: Accessory Muscle Use, Respiratory Distress Additional comments: ventilated on 60% FiO2 - Cardiovascular Exam Cardiovascular Exam: REGULAR RHYTHM. absent: Tachycardia Additional comments: hypotensive 90/40 Results - Vital Signs Recent Vital Signs: Last Vital Signs Temp 98.2 F 06/16/17 04:00 Pulse 64 06/16/17 06:00 Resp 19 06/16/17 06:00 BP 99/50 L 06/16/17 06:00 Pulse Ox 100 06/16/17 06:00 - Labs Result Diagrams: 06/16/17 06:28 06/16/17 06:28 Labs: Laboratory Results - last 24 hr 06/15/17 06/15/17 06/15/17 19:00 19:00 21:10 WBC 11.7 H RBC 4.02 Hgb 12.1 Hct 38.6 MCV 96.0 D MCH 30.1 MCHC 31.3 L RDW 17.3 H Plt Count 175 MPV 10.4 Neut % (Auto) 79.8 H Lymph % (Auto) 10.6 L [place] % (Auto) 7.1 Eos % (Auto) 1.3 Baso % (Auto) 1.2 Neut # (Auto) 9.3 H Lymph # (Auto) 1.2 [place] # (Auto) 0.8 Eos # (Auto) 0.2 Baso # (Auto) 0.1 pCO2 pO2 33 HCO3 ABG pH ABG Total CO2 ABG O2 Saturation ABG O2 Content ABG Base Excess ABG Hemoglobin ABG Carboxyhemoglobin POC ABG HHb (Measured) ABG Methemoglobin ABG O2 Capacity Mendez Test ABG Potassium VBG pH 7.31 L VBG pCO2 51 VBG HCO3 22.9 VBG Total CO2 27.3 VBG O2 Sat (Calc) 66.9 H VBG Base Excess -1.2 L VBG Potassium 6.8 H* A-a O2 Difference Hgb O2 Saturation Glucose 123 H Lactate 0.9 Vent Mode Mechanical Rate FiO2 21.0 Tidal Volume PEEP Crit Value Called To Dr alyx bautista Crit Value Called By Rt Crit Value Read Back Y Blood Gas Notified Time 2117 Sodium 139 130.0 L Potassium 6.4 H* D Chloride 94 L 94.0 L Carbon Dioxide 30 Anion Gap 21 H BUN 49 H Creatinine 7.9 H* D Est GFR ( Amer) 6 Est GFR (Non-Af Amer) 5 POC Glucose (mg/dL) Random Glucose 72 Calcium 9.1 Total Bilirubin 0.5 AST 43 H ALT 26 Alkaline Phosphatase 118 Troponin I < 0.0120 Total Protein 8.5 H Albumin 4.4 Globulin 4.1 H Albumin/Globulin Ratio 1.1 Lipase 83 Arterial Blood Potassium Venous Blood Potassium 6.8 H* 06/15/17 06/15/17 06/15/17 22:15 22:24 22:30 WBC RBC Hgb Hct MCV MCH MCHC RDW Plt Count MPV Neut % (Auto) Lymph % (Auto) [place] % (Auto) Eos % (Auto) Baso % (Auto) Neut # (Auto) Lymph # (Auto) [place] # (Auto) Eos # (Auto) Baso # (Auto) pCO2 pO2 HCO3 ABG pH ABG Total CO2 ABG O2 Saturation ABG O2 Content ABG Base Excess ABG Hemoglobin ABG Carboxyhemoglobin POC ABG HHb (Measured) ABG Methemoglobin ABG O2 Capacity Mendez Test ABG Potassium VBG pH VBG pCO2 VBG HCO3 VBG Total CO2 VBG O2 Sat (Calc) VBG Base Excess VBG Potassium A-a O2 Difference Hgb O2 Saturation Glucose Lactate Vent Mode Mechanical Rate FiO2 Tidal Volume PEEP Crit Value Called To Crit Value Called By Crit Value Read Back Blood Gas Notified Time Sodium Potassium Chloride Carbon Dioxide Anion Gap BUN Creatinine Est GFR ( Amer) Est GFR (Non-Af Amer) POC Glucose (mg/dL) 219 H 260 H 282 H Random Glucose Calcium Total Bilirubin AST ALT Alkaline Phosphatase Troponin I Total Protein Albumin Globulin Albumin/Globulin Ratio Lipase Arterial Blood Potassium Venous Blood Potassium 06/15/17 06/15/17 06/16/17 22:35 22:42 00:28 WBC RBC Hgb Hct MCV MCH MCHC RDW Plt Count MPV Neut % (Auto) Lymph % (Auto) [place] % (Auto) Eos % (Auto) Baso % (Auto) Neut # (Auto) Lymph # (Auto) [place] # (Auto) Eos # (Auto) Baso # (Auto) pCO2 57 H pO2 312 H HCO3 19.5 L ABG pH 7.19 L* ABG Total CO2 23.5 ABG O2 Saturation 96.8 ABG O2 Content ABG Base Excess -7.0 L ABG Hemoglobin ABG Carboxyhemoglobin POC ABG HHb (Measured) ABG Methemoglobin ABG O2 Capacity Mendez Test Yes ABG Potassium 4.4 VBG pH VBG pCO2 VBG HCO3 VBG Total CO2 VBG O2 Sat (Calc) VBG Base Excess VBG Potassium A-a O2 Difference 330.0 Hgb O2 Saturation Glucose 310 H Lactate 6.0 H* Vent Mode Prvc/ac Mechanical Rate 12 FiO2 100.0 Tidal Volume 450 PEEP 5 Crit Value Called To Dr kenn bautista Crit Value Called By Rt Crit Value Read Back Y Blood Gas Notified Time 2245 Sodium 133.0 Potassium Chloride 94.0 L Carbon Dioxide Anion Gap BUN Creatinine Est GFR ( Amer) Est GFR (Non-Af Amer) POC Glucose (mg/dL) 239 H 177 H Random Glucose Calcium Total Bilirubin AST ALT Alkaline Phosphatase Troponin I Total Protein Albumin Globulin Albumin/Globulin Ratio Lipase Arterial Blood Potassium 4.4 Venous Blood Potassium 06/16/17 06/16/17 06/16/17 05:22 06:11 06:28 WBC RBC Hgb Hct MCV MCH MCHC RDW Plt Count MPV Neut % (Auto) Lymph % (Auto) [place] % (Auto) Eos % (Auto) Baso % (Auto) Neut # (Auto) Lymph # (Auto) [place] # (Auto) Eos # (Auto) Baso # (Auto) pCO2 32 L pO2 160 H HCO3 24.0 ABG pH 7.45 ABG Total CO2 23.2 ABG O2 Saturation 95.6 ABG O2 Content 16.2 ABG Base Excess -1.1 ABG Hemoglobin 11.9 ABG Carboxyhemoglobin 0 L POC ABG HHb (Measured) 4.4 ABG Methemoglobin 0.6 ABG O2 Capacity 16.9 Mendez Test Yes ABG Potassium VBG pH VBG pCO2 VBG HCO3 VBG Total CO2 VBG O2 Sat (Calc) VBG Base Excess VBG Potassium A-a O2 Difference 157.0 Hgb O2 Saturation 95.0 Glucose Lactate Vent Mode A/c Mechanical Rate 18 FiO2 50.0 Tidal Volume 500 PEEP 5 Crit Value Called To Crit Value Called By Crit Value Read Back Blood Gas Notified Time Sodium 136 Potassium 5.5 H Chloride 96 L Carbon Dioxide 25 Anion Gap 21 H BUN 59 H Creatinine 8.1 H* Est GFR ( Amer) 6 Est GFR (Non-Af Amer) 5 POC Glucose (mg/dL) 184 H Random Glucose 185 H Calcium 9.5 Total Bilirubin AST ALT Alkaline Phosphatase Troponin I Total Protein Albumin Globulin Albumin/Globulin Ratio Lipase Arterial Blood Potassium Venous Blood Potassium 06/16/17 06:28 WBC 22.1 H D RBC 3.75 L Hgb 11.3 L Hct 35.9 MCV 95.6 MCH 30.1 MCHC 31.5 L RDW 16.7 H Plt Count 179 MPV 10.4 Neut % (Auto) 91.0 H Lymph % (Auto) 3.3 L [place] % (Auto) 5.5 Eos % (Auto) 0.0 Baso % (Auto) 0.2 Neut # (Auto) 20.1 H Lymph # (Auto) 0.7 L [place] # (Auto) 1.2 H Eos # (Auto) 0.0 Baso # (Auto) 0.0 pCO2 pO2 HCO3 ABG pH ABG Total CO2 ABG O2 Saturation ABG O2 Content ABG Base Excess ABG Hemoglobin ABG Carboxyhemoglobin POC ABG HHb (Measured) ABG Methemoglobin ABG O2 Capacity Mendez Test ABG Potassium VBG pH VBG pCO2 VBG HCO3 VBG Total CO2 VBG O2 Sat (Calc) VBG Base Excess VBG Potassium A-a O2 Difference Hgb O2 Saturation Glucose Lactate Vent Mode Mechanical Rate FiO2 Tidal Volume PEEP Crit Value Called To Crit Value Called By Crit Value Read Back Blood Gas Notified Time Sodium Potassium Chloride Carbon Dioxide Anion Gap BUN Creatinine Est GFR ( Amer) Est GFR (Non-Af Amer) POC Glucose (mg/dL) Random Glucose Calcium Total Bilirubin AST ALT Alkaline Phosphatase Troponin I Total Protein Albumin Globulin Albumin/Globulin Ratio Lipase Arterial Blood Potassium Venous Blood Potassium Assessment & Plan - Assessment and Plan (Free Text) Assessment: 86F with left ptx Plan: chest tube placed at bedside emergently pt tolerated procedure well - position confirmed with CXR keep CT to wall suction 20mmHg will follow d/w Dr Riccardo Arshad, PGY3 Chest Tube Insertion - Chest Tube Placement Indication: Pneumothorax (left) Consent Obtained: Written (daughter) Procedure Description: Prepped W/Betadine (chlorhexidine), Sterile Drape Applied , Local Anes Used: (1% lido w/ epi) Incision Completed And Tube Inserted At: 4th ICS left side - insert to 18cm Post Insertion Procedure(s): Tube Sutured To Chest Wall, CXR Completed To Confirm Placement, Tube Connected To Suction, No Air Leak Noted
--- NOTE | 2017-06-16 08:57 | CP.PCM.HP ---
<Chhaya Winchester - Last Filed: 06/16/17 16:26> History of Present Illness - History of Present Illness History of Present Illness: Information obtained from chart because of patients critical condition 86 YO F w/ h/o DM2, HTN, ESRD on dialysis came into the ED for abdominal pain on the left side with some nausea. She had taken some gas medication which helped. While patient was in the ER she was noted to have change in her mental status and she was found pulseless. Lyn willis was called. She was intubated and left IJ was placed. Repeat X ray at 5 am showed patient had a left pneumothorax. Surgery team was called and chest tube was placed. PMH: Anemia, Arthritis, Cardiac Arrhythmia, Diabetes (type II), GERD, HTN, Hypercholesterolemia, End Stage Renal Disease (dialysis M/W/F), Chronic Kidney Disease PSH: Appendectomy SH: Former Smoker; No ETOH; No illegal Drug use; Live with Familu FH: States: Hypertension Allergy: NKDA Present on Admission - Present on Admission Any Indicators Present on Admission: No Past Patient History - Infectious Disease Hx of Infectious Diseases: None - Tetanus Immunizations Tetanus Immunization: Unknown - Past Medical History & Family History Past Medical History?: Yes - Past Social History Smoking Status: Former Smoker Chewing Tobacco Use: No Alcohol: None Drugs: Denies Home Situation {Lives}: With Family - CARDIAC Hx Atrial Fibrillation: No Hx Cardia Arrhythmia: Yes Hx Congestive Heart Failure: No Hx Hypercholesterolemia: Yes Hx Hypertension: Yes - PULMONARY Hx Chronic Obstructive Pulmonary Disease (COPD): No - NEUROLOGICAL Hx Neurological Disorder: No - HEENT Hx HEENT Problems: Yes Hx Glaucoma: Yes - RENAL Hx Chronic Kidney Disease: Yes Hx Kidney Stones: No - ENDOCRINE/METABOLIC Hx Hypothyroidism: No - HEMATOLOGICAL/ONCOLOGICAL Hx Anemia: Yes Hx Human Immunodeficiency Virus (HIV): No - INTEGUMENTARY Hx Dermatological Problems: No - MUSCULOSKELETAL/RHEUMATOLOGICAL Hx Arthritis: Yes Hx Rheumatoid Arthritis: No - GASTROINTESTINAL Hx Gastrointestinal Disorders: Yes Hx Gastroesophageal Reflux: Yes - GENITOURINARY/GYNECOLOGICAL Hx Genitourinary Disorders: No - PSYCHIATRIC Hx Psychophysiologic Disorder: No Hx Substance Use: No - SURGICAL HISTORY Hx Appendectomy: Yes - ANESTHESIA Hx Anesthesia: Yes Hx Anesthesia Reactions: No Hx Malignant Hyperthermia: No Meds Allergies/Adverse Reactions: Allergies Allergy/AdvReac Type Severity Reaction Status Date / Time No Known Allergies Allergy Verified 06/15/17 17:36 Physical Exam - Head Exam Head Exam: ATRAUMATIC, NORMOCEPHALIC - Eye Exam Eye Exam: Normal appearance - ENT Exam ENT Exam: Mucous Membranes Moist - Neck Exam Neck exam: Positive for: Normal Inspection - Respiratory Exam Respiratory Exam: absent: Wheezes Additional comments: on mechanical ventilation - Cardiovascular Exam Cardiovascular Exam: Irregular Rhythm, +S1, +S2 - GI/Abdominal Exam GI & Abdominal Exam: Distended, Soft Additional comments: obese Results - Vital Signs Recent Vital Signs: Last Vital Signs Temp 98.2 F 06/16/17 04:00 Pulse 64 06/16/17 06:00 Resp 19 06/16/17 06:00 BP 99/50 L 06/16/17 06:00 Pulse Ox 100 06/16/17 06:00 - Labs Result Diagrams: 06/16/17 06:28 06/16/17 06:28 Labs: Laboratory Results - last 24 hr 06/15/17 06/15/17 06/15/17 19:00 19:00 21:10 WBC 11.7 H RBC 4.02 Hgb 12.1 Hct 38.6 MCV 96.0 D MCH 30.1 MCHC 31.3 L RDW 17.3 H Plt Count 175 MPV 10.4 Neut % (Auto) 79.8 H Lymph % (Auto) 10.6 L [place] % (Auto) 7.1 Eos % (Auto) 1.3 Baso % (Auto) 1.2 Neut # (Auto) 9.3 H Lymph # (Auto) 1.2 [place] # (Auto) 0.8 Eos # (Auto) 0.2 Baso # (Auto) 0.1 pCO2 pO2 33 HCO3 ABG pH ABG Total CO2 ABG O2 Saturation ABG O2 Content ABG Base Excess ABG Hemoglobin ABG Carboxyhemoglobin POC ABG HHb (Measured) ABG Methemoglobin ABG O2 Capacity Mendez Test ABG Potassium VBG pH 7.31 L VBG pCO2 51 VBG HCO3 22.9 VBG Total CO2 27.3 VBG O2 Sat (Calc) 66.9 H VBG Base Excess -1.2 L VBG Potassium 6.8 H* A-a O2 Difference Hgb O2 Saturation Glucose 123 H Lactate 0.9 Vent Mode Mechanical Rate FiO2 21.0 Tidal Volume PEEP Crit Value Called To Dr alyx bautista Crit Value Called By Rt Crit Value Read Back Y Blood Gas Notified Time 2117 Sodium 139 130.0 L Potassium 6.4 H* D Chloride 94 L 94.0 L Carbon Dioxide 30 Anion Gap 21 H BUN 49 H Creatinine 7.9 H* D Est GFR ( Amer) 6 Est GFR (Non-Af Amer) 5 POC Glucose (mg/dL) Random Glucose 72 Calcium 9.1 Total Bilirubin 0.5 AST 43 H ALT 26 Alkaline Phosphatase 118 Troponin I < 0.0120 Total Protein 8.5 H Albumin 4.4 Globulin 4.1 H Albumin/Globulin Ratio 1.1 Lipase 83 Arterial Blood Potassium Venous Blood Potassium 6.8 H* 06/15/17 06/15/17 06/15/17 22:15 22:24 22:30 WBC RBC Hgb Hct MCV MCH MCHC RDW Plt Count MPV Neut % (Auto) Lymph % (Auto) [place] % (Auto) Eos % (Auto) Baso % (Auto) Neut # (Auto) Lymph # (Auto) [place] # (Auto) Eos # (Auto) Baso # (Auto) pCO2 pO2 HCO3 ABG pH ABG Total CO2 ABG O2 Saturation ABG O2 Content ABG Base Excess ABG Hemoglobin ABG Carboxyhemoglobin POC ABG HHb (Measured) ABG Methemoglobin ABG O2 Capacity Mendez Test ABG Potassium VBG pH VBG pCO2 VBG HCO3 VBG Total CO2 VBG O2 Sat (Calc) VBG Base Excess VBG Potassium A-a O2 Difference Hgb O2 Saturation Glucose Lactate Vent Mode Mechanical Rate FiO2 Tidal Volume PEEP Crit Value Called To Crit Value Called By Crit Value Read Back Blood Gas Notified Time Sodium Potassium Chloride Carbon Dioxide Anion Gap BUN Creatinine Est GFR ( Amer) Est GFR (Non-Af Amer) POC Glucose (mg/dL) 219 H 260 H 282 H Random Glucose Calcium Total Bilirubin AST ALT Alkaline Phosphatase Troponin I Total Protein Albumin Globulin Albumin/Globulin Ratio Lipase Arterial Blood Potassium Venous Blood Potassium 06/15/17 06/15/17 06/16/17 22:35 22:42 00:28 WBC RBC Hgb Hct MCV MCH MCHC RDW Plt Count MPV Neut % (Auto) Lymph % (Auto) [place] % (Auto) Eos % (Auto) Baso % (Auto) Neut # (Auto) Lymph # (Auto) [place] # (Auto) Eos # (Auto) Baso # (Auto) pCO2 57 H pO2 312 H HCO3 19.5 L ABG pH 7.19 L* ABG Total CO2 23.5 ABG O2 Saturation 96.8 ABG O2 Content ABG Base Excess -7.0 L ABG Hemoglobin ABG Carboxyhemoglobin POC ABG HHb (Measured) ABG Methemoglobin ABG O2 Capacity Mendez Test Yes ABG Potassium 4.4 VBG pH VBG pCO2 VBG HCO3 VBG Total CO2 VBG O2 Sat (Calc) VBG Base Excess VBG Potassium A-a O2 Difference 330.0 Hgb O2 Saturation Glucose 310 H Lactate 6.0 H* Vent Mode Prvc/ac Mechanical Rate 12 FiO2 100.0 Tidal Volume 450 PEEP 5 Crit Value Called To Dr kenn bautista Crit Value Called By Rt Crit Value Read Back Y Blood Gas Notified Time 224 Sodium 133.0 Potassium Chloride 94.0 L Carbon Dioxide Anion Gap BUN Creatinine Est GFR ( Amer) Est GFR (Non-Af Amer) POC Glucose (mg/dL) 239 H 177 H Random Glucose Calcium Total Bilirubin AST ALT Alkaline Phosphatase Troponin I Total Protein Albumin Globulin Albumin/Globulin Ratio Lipase Arterial Blood Potassium 4.4 Venous Blood Potassium 06/16/17 06/16/17 06/16/17 05:22 06:11 06:28 WBC RBC Hgb Hct MCV MCH MCHC RDW Plt Count MPV Neut % (Auto) Lymph % (Auto) [place] % (Auto) Eos % (Auto) Baso % (Auto) Neut # (Auto) Lymph # (Auto) [place] # (Auto) Eos # (Auto) Baso # (Auto) pCO2 32 L pO2 160 H HCO3 24.0 ABG pH 7.45 ABG Total CO2 23.2 ABG O2 Saturation 95.6 ABG O2 Content 16.2 ABG Base Excess -1.1 ABG Hemoglobin 11.9 ABG Carboxyhemoglobin 0 L POC ABG HHb (Measured) 4.4 ABG Methemoglobin 0.6 ABG O2 Capacity 16.9 Mendez Test Yes ABG Potassium VBG pH VBG pCO2 VBG HCO3 VBG Total CO2 VBG O2 Sat (Calc) VBG Base Excess VBG Potassium A-a O2 Difference 157.0 Hgb O2 Saturation 95.0 Glucose Lactate Vent Mode A/c Mechanical Rate 18 FiO2 50.0 Tidal Volume 500 PEEP 5 Crit Value Called To Crit Value Called By Crit Value Read Back Blood Gas Notified Time Sodium 136 Potassium 5.5 H Chloride 96 L Carbon Dioxide 25 Anion Gap 21 H BUN 59 H Creatinine 8.1 H* Est GFR ( Amer) 6 Est GFR (Non-Af Amer) 5 POC Glucose (mg/dL) 184 H Random Glucose 185 H Calcium 9.5 Total Bilirubin AST ALT Alkaline Phosphatase Troponin I Total Protein Albumin Globulin Albumin/Globulin Ratio Lipase Arterial Blood Potassium Venous Blood Potassium 06/16/17 06:28 WBC 22.1 H D RBC 3.75 L Hgb 11.3 L Hct 35.9 MCV 95.6 MCH 30.1 MCHC 31.5 L RDW 16.7 H Plt Count 179 MPV 10.4 Neut % (Auto) 91.0 H Lymph % (Auto) 3.3 L [place] % (Auto) 5.5 Eos % (Auto) 0.0 Baso % (Auto) 0.2 Neut # (Auto) 20.1 H Lymph # (Auto) 0.7 L [place] # (Auto) 1.2 H Eos # (Auto) 0.0 Baso # (Auto) 0.0 pCO2 pO2 HCO3 ABG pH ABG Total CO2 ABG O2 Saturation ABG O2 Content ABG Base Excess ABG Hemoglobin ABG Carboxyhemoglobin POC ABG HHb (Measured) ABG Methemoglobin ABG O2 Capacity Mendez Test ABG Potassium VBG pH VBG pCO2 VBG HCO3 VBG Total CO2 VBG O2 Sat (Calc) VBG Base Excess VBG Potassium A-a O2 Difference Hgb O2 Saturation Glucose Lactate Vent Mode Mechanical Rate FiO2 Tidal Volume PEEP Crit Value Called To Crit Value Called By Crit Value Read Back Blood Gas Notified Time Sodium Potassium Chloride Carbon Dioxide Anion Gap BUN Creatinine Est GFR ( Amer) Est GFR (Non-Af Amer) POC Glucose (mg/dL) Random Glucose Calcium Total Bilirubin AST ALT Alkaline Phosphatase Troponin I Total Protein Albumin Globulin Albumin/Globulin Ratio Lipase Arterial Blood Potassium Venous Blood Potassium Assessment & Plan - Assessment and Plan (Free Text) Assessment: 1) Cardiac arrest possibly secondary to hyperkalemia - C/W ICU recomendations 2.) Acute respiratory failure secondary to cardiac arrest - Mechanical ventilation 3) Left side Pneumothorax - Chest tube placed - Surgery team consulted Poor prognosis <Kaushik Hooker - Last Filed: 06/23/17 16:21> Results - Vital Signs Recent Vital Signs: Last Vital Signs Temp 99.2 F 06/22/17 08:00 Pulse 71 06/22/17 08:00 Resp 12 06/22/17 08:00 BP 133/39 L 06/22/17 08:00 Pulse Ox 83 L 06/22/17 08:00 - Labs Result Diagrams: 06/21/17 04:20 06/21/17 04:20 Assessment & Plan - Assessment and Plan (Free Text) Assessment: Patient was personally seen and examined by me in rounds with residents. Available labs and diagnostic data reviewed. Case, Patient's condition and management plan discussed with residents in rounds. Agree with resident's documentation. Plan: As ordered. Kaushik Hooker MD
[2017-06-16] MEDS ORDERED: Calcium Chloride 1000 mg/10 ml Syringe IV ONE (09:00)
--- NOTE | 2017-06-16 10:03 | RAD ---
HISTORY: abdominal pain COMPARISON: Chest radiograph dated 05/03/2017. FINDINGS: LUNGS: Pulmonary vascular congestion. PLEURA: No significant pleural effusion identified, no pneumothorax apparent. CARDIOVASCULAR: Atherosclerotic aortic calcifications. Cardiomediastinal silhouette stably enlarged. OSSEOUS STRUCTURES: Unchanged. VISUALIZED UPPER ABDOMEN: Normal. OTHER FINDINGS: Right upper extremity vascular stent redemonstrated. IMPRESSION: Pulmonary vascular congestion. No focal consolidation or pleural effusion.
--- NOTE | 2017-06-16 10:29 | RAD ---
HISTORY: line placement and intubation COMPARISON: Chest radiograph performed approximately 3.5 hours prior FINDINGS: LUNGS: Stable chronic prominence of the bilateral interstitial markings with superimposed pulmonary vascular congestion. PLEURA: No significant pleural effusion identified, no pneumothorax apparent. CARDIOVASCULAR: Atherosclerotic aortic calcifications. Cardiomediastinal silhouette stably enlarged. OSSEOUS STRUCTURES: Unchanged. VISUALIZED UPPER ABDOMEN: Normal. OTHER FINDINGS: Interval placement of endotracheal tube with tip between the clavicles and jelani. New left internal jugular access central venous catheter with tip in the distal brachiocephalic vein. IMPRESSION: Endotracheal tube and left internal jugular access central venous catheter in satisfactory position. No appreciable pneumothorax. No other significant interval changes
--- NOTE | 2017-06-16 11:00 | RAD ---
PROCEDURE: CHEST RADIOGRAPH, 1 VIEW HISTORY: s/p chest tube placement COMPARISON: Chest radiograph performed approximately 2.5 hours prior FINDINGS: LUNGS: No active pulmonary disease. PLEURA: Small residual left apical pneumothorax post chest tube insertion. No pleural effusion. CARDIOVASCULAR: Atherosclerotic aortic calcifications. Cardiomediastinal silhouette stably enlarged. OSSEOUS STRUCTURES: Unchanged. VISUALIZED UPPER ABDOMEN: Normal. OTHER FINDINGS: New left-sided large-bore chest tube. Endotracheal and enteric tubes, unchanged. Left internal jugular access central venous catheter, unchanged. IMPRESSION: Small residual left apical pneumothorax post chest tube insertion. No other significant interval change.
--- NOTE | 2017-06-16 11:02 | RAD ---
HISTORY: follow up bibasal opacity COMPARISON: Chest radiograph dated 06/15/2017 FINDINGS: LUNGS: No active pulmonary disease. PLEURA: New large left pneumothorax. CARDIOVASCULAR: Atherosclerotic aortic calcifications. Cardiomediastinal silhouette stably enlarged. OSSEOUS STRUCTURES: Unchanged. VISUALIZED UPPER ABDOMEN: Normal. OTHER FINDINGS: New enteric tube with tip in the stomach. Endotracheal tube, unchanged. Left internal jugular access central venous catheter, unchanged. IMPRESSION: New large left pneumothorax. New enteric tube in satisfactory position. At the time of this dictation, a more recent chest radiograph had already been performed.
[2017-06-16 11:07] LABS: BANDS 4 % (0-2); LYMPHOCYTE 3 % (20-50); MONOCYTE 11 % (0-10); NEUTROPHIL 82 % (42-75); PLATELET ESTIMATE NORMAL (NORMAL); TOTAL CELLS COUNTED 100
[2017-06-16 11:08] LABS: ANISOCYTOSIS MODERATE; BURR CELLS SLIGHT; HYPOCHROMIC SLIGHT; LARGE PLATELETS PRESENT; MICROCYTOSIS SLIGHT; OVALOCYTES SLIGHT; POIKILOCYTOSIS SLIGHT; TEARDROP CELLS SLIGHT
--- NOTE | 2017-06-16 11:23 | CARD ---
APPROVED REPORT EKG Measurement Heart [id number] <Conclusion> Sinus bradycardia Left bundle branch block Abnormal ECG
[2017-06-16] MEDS ORDERED: Albumin Human 25% (12.5 gm/50 ml) IV PRN (12:46)
[2017-06-16 20:50] LABS: BASO % 0.1 % (0.0-2.0); HEMOGLOBIN 10.7 g/dL (12.0-16.0); LYMPH # 1.2 K/uL (1.0-4.3); LYMPH % 6.7 % (20.0-40.0); MEAN CELL VOLUME 94.2 fl (81.0-99.0); MEAN CORPUSCULAR HGB CONC 31.8 g/dL (33.0-37.0); MEAN PLATELET VOLUME 10.1 fl (7.2-11.7); NEUT # 15.1 K/uL (1.8-7.0); NEUT % 87.2 % (50.0-75.0); RBC 3.58 Mil/uL (3.80-5.20); RED CELL DISTRIBUTION WIDTH 17.4 % (11.5-14.5); WHITE BLOOD COUNT 17.3 K/uL (4.8-10.8)
[2017-06-16] MEDS ORDERED: Sodium Bicarbonate 7.5% (0.9 MEQ/ML) 50ML INJ IV ONE (21:21)
[2017-06-16] MEDS ORDERED: Dextrose 50% SYRINGE Inj (50 ml) IVP STA (21:23)
[2017-06-16] MEDS ORDERED: Insulin Regular 100 units/ml IV STA (21:24)
[2017-06-16 21:29] LABS: CALCIUM 8.7 mg/dL (8.4-10.2)
[2017-06-16] MEDS ORDERED: Albuterol 0.083% Inhal Sol (2.5 mg/3 mL) UD INH ONE (22:16)
[2017-06-16] MEDS ORDERED: Sod Polystyrene Sulf 15 gm/60 ml Susp NG ONE (22:16)
--- NOTE | 2017-06-16 22:25 | CT ---
EXAM: CT Head Without Intravenous Contrast CLINICAL HISTORY: 86 years old, female; Signs and symptoms; Other: Post cardiac arrest; Additional info: Post-rosc from cardiac arrest TECHNIQUE: Axial computed tomography images of the head/brain without intravenous contrast. All CT scans at this facility use one or more dose reduction techniques, viz.: automated exposure control; ma/kV adjustment per patient size (including targeted exams where dose is matched to indication; i.e. head); or iterative reconstruction technique. Coronal and sagittal reformatted images were created and reviewed. COMPARISON: CT - HEAD W/O CONTRAST 2016-06-12 23:47 FINDINGS: Brain: [id number] atrophy. No intracranial hemorrhage. No mass. Few scattered foci of decreased attenuation within periventricular/subcortical white matter. No definite edema. Ventricles: No hydrocephalus. Bones/joints: Subluxation of LEFT temporomandibular joint. Small calcifications or intraarticular bodies within temporomandibular joints. Soft tissues: Scattered foci of air within posterior pharynx, facial and upper neck soft tissues left > right. Vasculature: Atherosclerotic disease of intracranial arteries. Sinuses: Scattered minimal mucosal thickening. Minimal fluid within right maxillary, sphenoid sinuses. Mastoid air cells: No mastoid effusion. Orbits: Unremarkable as visualized. Tubes, lines and devices: Endotracheal tube. Orogastric tube. IMPRESSION: 1. Nonspecific white matter changes. Acute infarction may be CT occult within first 24 hours. If a focal deficit persists, consider followup CT or MRI for further evaluation. 2. Soft tissue emphysema. Clinical correlation is needed. 3. Incidental/non-acute findings are described above.
[2017-06-17] MEDS: metroNIDAZOLE 500mg/100ml NS 100 ML IVPB SCH ×3 (00:40→17:08)
[2017-06-17] MEDS: Insulin Regular 100 units/ml SC SCH ×4 (00:42→18:06)
[2017-06-17] MEDS ORDERED: Sodium Chloride 0.9% 1,000 ML IV SCH (02:00)
[2017-06-17 04:59] LABS: ABG ALLEN TEST YES; ARTERIAL BLOOD GAS PCO2 30 mm/Hg (35-45); ARTERIAL BLOOD GAS PH 7.56 (7.35-7.45); ARTERIAL BLOOD GAS PO2 96 mm/Hg (80-100); ARTERIAL BLOOD GAS TCO2 27.8 mmol/L (22-28)
[2017-06-17 05:55] LABS: BASO % 0.2 % (0.0-2.0); EOS % 0.2 % (0.0-4.0); HEMOGLOBIN 10.1 g/dL (12.0-16.0); LYMPH # 1.3 K/uL (1.0-4.3); LYMPH % 8.2 % (20.0-40.0); MEAN CELL VOLUME 93.9 fl (81.0-99.0); MEAN CORPUSCULAR HEMOGLOBIN 29.9 pg (27.0-31.0); MEAN CORPUSCULAR HGB CONC 31.8 g/dL (33.0-37.0); MEAN PLATELET VOLUME 10.3 fl (7.2-11.7); MONO % 6.4 % (0.0-10.0); NEUT # 13.1 K/uL (1.8-7.0); RBC 3.37 Mil/uL (3.80-5.20); RED CELL DISTRIBUTION WIDTH 17.5 % (11.5-14.5); WHITE BLOOD COUNT 15.4 K/uL (4.8-10.8)
[2017-06-17 06:09] LABS: ALB/GLOB RATIO 1.2 (1.0-2.1); ALBUMIN 3.3 g/dL (3.5-5.0); CALCIUM 8.2 mg/dL (8.4-10.2)
[2017-06-17] MEDS: Ciprofloxacin 200mg/100ml D5W 100 ML IVPB SCH ×2 (09:00→20:13)
--- NOTE | 2017-06-17 10:30 | RAD ---
PROCEDURE: CHEST RADIOGRAPH, 1 VIEW HISTORY: left chest tube - vent COMPARISON: Comparison chest 06/16/2017 at 7:08 a.m.. FINDINGS: In situ left-sided chest tube. In situ ETT, tip of which lies approximately 1.53 cm above jelani. NGT is present, the tip of which has not been included on this film though distal aspect does lie well below EG junction. No change left IJ central venous LUNGS: There appears to be a moderately large left pneumothorax however this is not well delineated due to significant a extensive subcutaneous emphysema. Diffuse infiltrate changes throughout the right lung. PLEURA: No pneumothorax or pleural fluid seen. CARDIOVASCULAR: Normal. OSSEOUS STRUCTURES: No significant abnormalities. VISUALIZED UPPER ABDOMEN: Normal. OTHER FINDINGS: None. IMPRESSION: In situ left-sided chest to with the moderately large of residual left pneumothorax. Extensive subcutaneous emphysema diminishes fine soft tissue detail. Remaining support lines and tubes as above. Diffuse infiltrate changes throughout the right lung These findings discussed with Dr. Joiner at approximately 10:15 a.m. with written down and read back verification.
--- NOTE | 2017-06-17 10:47 | CP.PCM.CON ---
History of Present Illness - History of Present Illness History of Present Illness: REASONSFOR CONSULT : ESRD ON HD Becky Chen HYPERKALEMIA K 6.2 ANEMIA OF CKD .. H/H STABLE PT IS WELL KNOWN TO ME ON HD AT [facility] Becky Chen PRESENTED TE ER WITH ABDO PAIN .. K 6.2 WE ATTEMPTED HD YESTERDAY MORNING .. PT DID NOT TOLERATE HD 2/2 HYPOTENSION ..WILL ATTEMPT TODAY PT WAS INTUBATED UPON HER ADMISSION AND WAS ADMITTED TO ICU 86yo female, with history of diabetes, hypertension, end stage renal disease ( currently on dialysis), presents to ED with complaints of right sided abdominal pain, mainly in mid-abdomen, radiating to her left side 2 hours ago. Patient states the symptoms lasted for an hour and resolved after taking "gas medications." She also states at that time she had nausea but currently, denies any nausea or abdominal pain. He has a history of a hernia on her left side and is concerned it might be involved in her presentation. She denies any vomiting, chest pain, hematemesis, melena, fever, shortness of breath. Of note patient's last BM was yesterday and was normal. No other complaints. Abnormal Vaginal Bleeding: No Past Medical History Reviewed: Historical Data, Nursing Documentation, Vital Signs Vital Signs: Last Vital Signs Temp 97.9 F 06/15/17 17:33 Pulse 56 L 06/15/17 17:33 Resp 19 06/15/17 17:33 BP 178/64 H 06/15/17 17:33 Pulse Ox 95 06/15/17 23:09 - Medical History PMH: Anemia, Arthritis, Cardia Arrhythmia, Diabetes (type iI), GERD, HTN, Hypercholesterolemia, End Stage Renal Disease (dialysis M/W/F), Chronic Kidney Disease Denies: Atrial Fibrillation, CHF, COPD, HIV, Hypothyroidism, Kidney Stones, Rheumatoid Arthritis Past Patient History - Infectious Disease Hx of Infectious Diseases: None - Tetanus Immunizations Tetanus Immunization: Unknown - Past Medical History & Family History Past Medical History?: Yes - Past Social History Smoking Status: Former Smoker Chewing Tobacco Use: No Alcohol: None Drugs: Denies Home Situation {Lives}: With Family - CARDIAC Hx Atrial Fibrillation: No Hx Cardia Arrhythmia: Yes Hx Congestive Heart Failure: No Hx Hypercholesterolemia: Yes Hx Hypertension: Yes - PULMONARY Hx Chronic Obstructive Pulmonary Disease (COPD): No - NEUROLOGICAL Hx Neurological Disorder: No - HEENT Hx HEENT Problems: Yes Hx Glaucoma: Yes - RENAL Hx Chronic Kidney Disease: Yes Hx Kidney Stones: No - ENDOCRINE/METABOLIC Hx Hypothyroidism: No - HEMATOLOGICAL/ONCOLOGICAL Hx Anemia: Yes Hx Human Immunodeficiency Virus (HIV): No - INTEGUMENTARY Hx Dermatological Problems: No - MUSCULOSKELETAL/RHEUMATOLOGICAL Hx Arthritis: Yes Hx Rheumatoid Arthritis: No - GASTROINTESTINAL Hx Gastrointestinal Disorders: Yes Hx Gastroesophageal Reflux: Yes - GENITOURINARY/GYNECOLOGICAL Hx Genitourinary Disorders: No - PSYCHIATRIC Hx Psychophysiologic Disorder: No Hx Substance Use: No - SURGICAL HISTORY Hx Appendectomy: Yes - ANESTHESIA Hx Anesthesia: Yes Hx Anesthesia Reactions: No Hx Malignant Hyperthermia: No Meds Allergies/Adverse Reactions: Allergies Allergy/AdvReac Type Severity Reaction Status Date / Time No Known Allergies Allergy Verified 06/15/17 17:36 - Medications Medications: Current Medications Albumin Human (Albumin Human 25% (12.5 Gm/50 Ml)) 12.5 gm IV Q5M PRN PRN Reason: Systolic Blood Pressure Last Admin: 06/16/17 13:00 Dose: 12.5 gm Amiodarone HCl (Cordarone) 100 mg PO DAILY [facility] Last Admin: 06/16/17 16:25 Dose: Not Given Amlodipine Besylate (Norvasc) 5 mg PO DAILY [facility] Last Admin: 06/16/17 10:11 Dose: Not Given Heparin Sodium (Porcine) (Heparin) 5,000 units SC Q8 [facility] PRN Reason: Protocol Last Admin: 06/17/17 09:01 Dose: 5,000 units Metronidazole (Flagyl 500mg/100ml Ns) 100 mls @ 100 mls/hr IVPB Q8 [facility] PRN Reason: Protocol Last Admin: 06/17/17 09:00 Dose: 100 mls/hr Ciprofloxacin (Cipro 200mg/100ml D5w) 100 mls @ 100 mls/hr IVPB Q12 [facility] Last Admin: 06/17/17 09:00 Dose: 100 mls/hr Insulin Human Regular (Humulin R) 0 units SC Q6H [facility] PRN Reason: Protocol Last Admin: 06/17/17 06:06 Dose: 3 unit Pantoprazole Sodium (Protonix Inj) 40 mg IVP DAILY [facility] Last Admin: 06/17/17 09:01 Dose: 40 mg Timolol Maleate (Timoptic 0.5% Ophth Soln) 1 drop OD DAILY [facility] Last Admin: 06/17/17 09:02 Dose: 1 drop Results - Vital Signs Recent Vital Signs: Last Vital Signs Temp 99.8 F H 06/17/17 08:00 Pulse 78 06/17/17 08:00 Resp 18 06/17/17 08:00 BP 111/48 L 06/17/17 08:00 Pulse Ox 99 06/17/17 08:00 - Labs Result Diagrams: 06/17/17 04:38 06/17/17 04:38 Labs: Laboratory Results - last 24 hr 06/16/17 06/16/17 06/16/17 06:28 11:57 17:25 WBC RBC Hgb Hct MCV MCH MCHC RDW Plt Count MPV Neut % (Auto) Lymph % (Auto) [place] % (Auto) Eos % (Auto) Baso % (Auto) Neut # (Auto) Lymph # (Auto) [place] # (Auto) Eos # (Auto) Baso # (Auto) Neutrophils % (Manual) 82 H Band Neutrophils % 4 H Lymphocytes % (Manual) 3 L Monocytes % (Manual) 11 H Platelet Estimate Normal Large Platelets Present Hypochromasia (manual) Slight Poikilocytosis (manual Slight Anisocytosis (manual) Moderate Microcytosis (manual) Slight Macrocytosis (manual) Slight Tear Drop Cells Slight Ovalocytes Slight [place] Cells Slight APTT pCO2 pO2 HCO3 ABG pH ABG Total CO2 ABG Base Excess Mendez Test A-a O2 Difference Vent Mode Mechanical Rate FiO2 Tidal Volume PEEP Sodium Potassium Chloride Carbon Dioxide Anion Gap BUN Creatinine Est GFR ( Amer) Est GFR (Non-Af Amer) POC Glucose (mg/dL) 230 H 231 H Random Glucose Lactic Acid Calcium Total Bilirubin AST ALT Alkaline Phosphatase Total Protein Albumin Globulin Albumin/Globulin Ratio 06/16/17 06/16/17 06/16/17 20:41 20:41 20:41 WBC 17.3 H RBC 3.58 L Hgb 10.7 L Hct 33.7 L MCV 94.2 MCH 30.0 MCHC 31.8 L RDW 17.4 H Plt Count 167 MPV 10.1 Neut % (Auto) 87.2 H Lymph % (Auto) 6.7 L [place] % (Auto) 6.0 Eos % (Auto) 0.0 Baso % (Auto) 0.1 Neut # (Auto) 15.1 H Lymph # (Auto) 1.2 [place] # (Auto) 1.0 H Eos # (Auto) 0.0 Baso # (Auto) 0.0 Neutrophils % (Manual) Band Neutrophils % Lymphocytes % (Manual) Monocytes % (Manual) Platelet Estimate Large Platelets Hypochromasia (manual) Poikilocytosis (manual Anisocytosis (manual) Microcytosis (manual) Macrocytosis (manual) Tear Drop Cells Ovalocytes [place] Cells APTT pCO2 pO2 HCO3 ABG pH ABG Total CO2 ABG Base Excess Mendez Test A-a O2 Difference Vent Mode Mechanical Rate FiO2 Tidal Volume PEEP Sodium 140 Potassium 6.0 H Chloride 93 L Carbon Dioxide 24 Anion Gap 29 H BUN 62 H Creatinine 7.8 H* Est GFR ( Amer) 6 Est GFR (Non-Af Amer) 5 POC Glucose (mg/dL) Random Glucose 219 H Lactic Acid 3.0 H Calcium 8.7 Total Bilirubin AST ALT Alkaline Phosphatase Total Protein Albumin Globulin Albumin/Globulin Ratio 06/16/17 06/17/17 06/17/17 22:05 04:19 04:23 WBC RBC Hgb Hct MCV MCH MCHC RDW Plt Count MPV Neut % (Auto) Lymph % (Auto) [place] % (Auto) Eos % (Auto) Baso % (Auto) Neut # (Auto) Lymph # (Auto) [place] # (Auto) Eos # (Auto) Baso # (Auto) Neutrophils % (Manual) Band Neutrophils % Lymphocytes % (Manual) Monocytes % (Manual) Platelet Estimate Large Platelets Hypochromasia (manual) Poikilocytosis (manual Anisocytosis (manual) Microcytosis (manual) Macrocytosis (manual) Tear Drop Cells Ovalocytes [place] Cells APTT pCO2 30 L pO2 96 HCO3 29.0 H ABG pH 7.56 H ABG Total CO2 27.8 ABG Base Excess 5.2 H Mendez Test Yes A-a O2 Difference 223.0 Vent Mode A/c Mechanical Rate 18 FiO2 50.0 Tidal Volume 500 PEEP 5 Sodium Potassium Chloride Carbon Dioxide Anion Gap BUN Creatinine Est GFR ( Amer) Est GFR (Non-Af Amer) POC Glucose (mg/dL) 329 H 240 H Random Glucose Lactic Acid Calcium Total Bilirubin AST ALT Alkaline Phosphatase Total Protein Albumin Globulin Albumin/Globulin Ratio 06/17/17 06/17/17 06/17/17 04:38 04:38 04:38 WBC 15.4 H RBC 3.37 L Hgb 10.1 L Hct 31.7 L MCV 93.9 MCH 29.9 MCHC 31.8 L RDW 17.5 H Plt Count 155 MPV 10.3 Neut % (Auto) 85.0 H Lymph % (Auto) 8.2 L [place] % (Auto) 6.4 Eos % (Auto) 0.2 Baso % (Auto) 0.2 Neut # (Auto) 13.1 H Lymph # (Auto) 1.3 [place] # (Auto) 1.0 H Eos # (Auto) 0.0 Baso # (Auto) 0.0 Neutrophils % (Manual) Band Neutrophils % Lymphocytes % (Manual) Monocytes % (Manual) Platelet Estimate Large Platelets Hypochromasia (manual) Poikilocytosis (manual Anisocytosis (manual) Microcytosis (manual) Macrocytosis (manual) Tear Drop Cells Ovalocytes [place] Cells APTT 29.9 pCO2 pO2 HCO3 ABG pH ABG Total CO2 ABG Base Excess Mendez Test A-a O2 Difference Vent Mode Mechanical Rate FiO2 Tidal Volume PEEP Sodium 143 Potassium 4.9 Chloride 92 L Carbon Dioxide 28 Anion Gap 28 H BUN 74 H Creatinine 8.4 H* Est GFR ( Amer) 5 Est GFR (Non-Af Amer) 5 POC Glucose (mg/dL) Random Glucose 214 H Lactic Acid Calcium 8.2 L Total Bilirubin 0.6 AST 124 H D ALT 123 H D Alkaline Phosphatase 92 Total Protein 6.1 L Albumin 3.3 L D Globulin 2.7 Albumin/Globulin Ratio 1.2 18 06/17/17 05:16 05:16 WBC RBC Hgb Hct MCV MCH MCHC RDW Plt Count MPV Neut % (Auto) Lymph % (Auto) [place] % (Auto) Eos % (Auto) Baso % (Auto) Neut # (Auto) Lymph # (Auto) [place] # (Auto) Eos # (Auto) Baso # (Auto) Neutrophils % (Manual) Band Neutrophils % Lymphocytes % (Manual) Monocytes % (Manual) Platelet Estimate Large Platelets Hypochromasia (manual) Poikilocytosis (manual Anisocytosis (manual) Microcytosis (manual) Macrocytosis (manual) Tear Drop Cells Ovalocytes [place] Cells APTT 16.1 L D pCO2 pO2 HCO3 ABG pH ABG Total CO2 ABG Base Excess Mendez Test A-a O2 Difference Vent Mode Mechanical Rate FiO2 Tidal Volume PEEP Sodium Potassium Chloride Carbon Dioxide Anion Gap BUN Creatinine Est GFR ( Amer) Est GFR (Non-Af Amer) POC Glucose (mg/dL) Random Glucose Lactic Acid 3.8 H Calcium Total Bilirubin AST ALT Alkaline Phosphatase Total Protein Albumin Globulin Albumin/Globulin Ratio Assessment & Plan - Assessment and Plan (Free Text) Assessment: ESRD ON HD M W F .. LOW BP COULD NOT TOLERATE HD .. WILL TRY SAT ANEMIA OF CKD .. WITH HGB 10.8 STABLE HYPERKALEMIA .. WAS GIVEN TEMPORISING MEASURES VDRF MMP P HD TODAY NOW THAT HER BP IS BETTER C/O CURRENT CARE C/O PRESENT MANAGEMENT WILL F/U CLOSELY - Date & Time Date: 06/16/17 Time: 15:00
--- NOTE | 2017-06-17 11:53 | PN ---
DATE: 06/17/2017 SUBJECTIVE: The patient is seen and examined. Interim events noted. Consults noted and appreciated. Case discussed with lead technical architect. The patient remains in Intensive Care Unit on ventilator. Not able to provide intermittent history. The patient is , on mechanical ventilation, on endotracheal tube, tolerating current setting without any distress. The patient is responsive to verbal stimulus. Opens her eye on calling her name, but does not communicative well. PHYSICAL EXAMINATION: VITAL SIGNS: Stable. HEART: S1 and S2, normal and regular. LUNGS: Good bilateral air exchange. ABDOMEN: Soft and nontender. EXTREMITIES: No calf swelling. No tenderness. No acute ischemia. The patient is status post amputation. CUSTODIAL SERVICES MANAGER: Essentially unchanged. The patient is responsive to verbal stimulus, but per CUSTODIAL SERVICES MANAGER exam it is not possible. DIAGNOSTIC DATA: Available diagnostic data is reviewed. Telemetry monitoring does not reveal significant arrhythmias. PLAN: Overall, the patient is hemodynamically stable, but long-term prognosis at this time remains poor. Plan as ordered. Case and plan discussed with the family. Kaushik Hooker MD
--- NOTE | 2017-06-17 12:56 | RAD ---
HISTORY: Chest tube reposition. COMPARISON: Comparison made with prior study dated 06/17/2017 at 8:01 a.m.. FINDINGS: In situ ETT, tip of which lies approximately 3.36 cm above jelani. NGT is present, the tip of which appears to lie in the right parasagittal upper abdomen. In situ left-sided chest tube is present. . No change left IJ central venous line with tip in the distal brachiocephalic/ SVC junction. LUNGS: Residual moderate-sized left-sided pneumothorax slightly diminished in size from prior study. Note that does significant diffuse subcutaneous emphysema over the lining the left dario thorax left supraclavicular and right supraclavicular regions as well as the lower neck obscure fine detail. . There appears to be diffuse bilateral infiltrates throughout the right lung PLEURA: No significant pleural effusion identified, no pneumothorax apparent. CARDIOVASCULAR: Normal. OSSEOUS STRUCTURES: No significant abnormalities. VISUALIZED UPPER ABDOMEN: Normal. OTHER FINDINGS: None. IMPRESSION: Support lines and tubes as above. Residual moderate-sized left-sided pneumothorax slightly diminished in size from prior study. Note that does significant diffuse subcutaneous emphysema over the lining the left dario thorax left supraclavicular and right supraclavicular regions as well as the lower neck obscure fine detail. Diffuse bilateral infiltrates are felt be present throughout the right lung.
--- NOTE | 2017-06-17 15:18 | CP.PCM.CON ---
History of Present Illness - History of Present Illness History of Present Illness: NOTE: DR NANCY BEAN WAS CALLED TO SEE THIS PATIENT AND I WAS COVERING FOR HIM THE PATIENT IS AN 86 YEAR OLD FEMALE WITH A HISTORY OF ATRIAL FIBRILLATION, HYPERTENSION, TYPE 2 DM AND CRF ON HD. SHE HAD LEFT SIDED ABDOMINAL PAIN ON 06/15 AND CAME TO THE ER AND WAS INITIALLY AWAKE AND ALERT AND THE WENT INTO [facility] AND A [facility] WAS CALLED AND CPR WAS STARTED AND SHE WAS GIVEN EPINEPHRINE AND PLACED ON MECHANICAL VENTILATION AND SHE REGAINED SINUS RHYTHM. SHE WAS FOUND TO BE HYPERKALEMIC AND THIS WAS TREATED. A CVP LINE WAS INSERTED VIA THE LEFT IJV AND SHE WAS FOUND TO HAVE A LEFT PNEUMOTHORAX AND A CT WAS INSERTED. CARDIOLOGY WAS ASKED TO SEE AND FOLLOW HER. THE PATIENT DIS NOT COMPLAIN OF CHEST PAIN. Past Patient History - Infectious Disease Hx of Infectious Diseases: None - Tetanus Immunizations Tetanus Immunization: Unknown - Past Medical History & Family History Past Medical History?: Yes - Past Social History Smoking Status: Former Smoker Chewing Tobacco Use: No Alcohol: None Drugs: Denies Home Situation {Lives}: With Family - CARDIAC Hx Atrial Fibrillation: No Hx Cardia Arrhythmia: Yes Hx Congestive Heart Failure: No Hx Hypercholesterolemia: Yes Hx Hypertension: Yes - PULMONARY Hx Chronic Obstructive Pulmonary Disease (COPD): No - NEUROLOGICAL Hx Neurological Disorder: No - HEENT Hx HEENT Problems: Yes Hx Glaucoma: Yes - RENAL Hx Chronic Kidney Disease: Yes Hx Kidney Stones: No - ENDOCRINE/METABOLIC Hx Hypothyroidism: No - HEMATOLOGICAL/ONCOLOGICAL Hx Anemia: Yes Hx Human Immunodeficiency Virus (HIV): No - INTEGUMENTARY Hx Dermatological Problems: No - MUSCULOSKELETAL/RHEUMATOLOGICAL Hx Arthritis: Yes Hx Rheumatoid Arthritis: No - GASTROINTESTINAL Hx Gastrointestinal Disorders: Yes Hx Gastroesophageal Reflux: Yes - GENITOURINARY/GYNECOLOGICAL Hx Genitourinary Disorders: No - PSYCHIATRIC Hx Psychophysiologic Disorder: No Hx Substance Use: No - SURGICAL HISTORY Hx Appendectomy: Yes - ANESTHESIA Hx Anesthesia: Yes Hx Anesthesia Reactions: No Hx Malignant Hyperthermia: No Meds Allergies/Adverse Reactions: Allergies Allergy/AdvReac Type Severity Reaction Status Date / Time No Known Allergies Allergy Verified 06/15/17 17:36 - Medications Medications: Current Medications Amiodarone HCl (Cordarone) 100 mg PO DAILY [facility] Last Admin: 06/16/17 16:25 Dose: Not Given Amlodipine Besylate (Norvasc) 5 mg PO DAILY [facility] Last Admin: 06/16/17 10:11 Dose: Not Given Heparin Sodium (Porcine) (Heparin) 5,000 units SC Q8 [facility] PRN Reason: Protocol Last Admin: 06/17/17 09:01 Dose: 5,000 units Metronidazole (Flagyl 500mg/100ml Ns) 100 mls @ 100 mls/hr IVPB Q8 [facility] PRN Reason: Protocol Last Admin: 06/17/17 09:00 Dose: 100 mls/hr Ciprofloxacin (Cipro 200mg/100ml D5w) 100 mls @ 100 mls/hr IVPB Q12 [facility] Last Admin: 06/17/17 09:00 Dose: 100 mls/hr Insulin Human Regular (Humulin R) 0 units SC Q6H [facility] PRN Reason: Protocol Last Admin: 06/17/17 13:38 Dose: 3 unit Pantoprazole Sodium (Protonix Inj) 40 mg IVP DAILY [facility] Last Admin: 06/17/17 09:01 Dose: 40 mg Timolol Maleate (Timoptic 0.5% Oph Soln) 1 drop OD DAILY [facility] Last Admin: 06/17/17 09:02 Dose: 1 drop Physical Exam - Respiratory Exam Additional comments: DECREASED BS ON THE LEFT SIDE - Cardiovascular Exam Cardiovascular Exam: REGULAR RHYTHM, +S1, +S2 - Additional Findings Additional findings: EKG SINUS RHYTHM, LBBB INSTRUMENTATION INSTRUCTOR SHOWS SINUS RHYTHM WITH RATE IN THE 80'S TROPONIN NORMAL CXR REPORTS SEEN K+ 6.4 IN ER K+ 4.9 TODAY Results - Vital Signs Recent Vital Signs: Last Vital Signs Temp 99.8 F H 06/17/17 12:00 Pulse 78 06/17/17 12:00 Resp 18 06/17/17 12:00 BP 128/46 L 06/17/17 12:00 Pulse Ox 100 06/17/17 12:00 - Labs Result Diagrams: 06/17/17 04:38 06/17/17 04:38 Labs: Laboratory Results - last 24 hr 06/16/17 06/16/17 06/16/17 17:25 20:41 20:41 WBC 17.3 H RBC 3.58 L Hgb 10.7 L Hct 33.7 L MCV 94.2 MCH 30.0 MCHC 31.8 L RDW 17.4 H Plt Count 167 MPV 10.1 Neut % (Auto) 87.2 H Lymph % (Auto) 6.7 L [place] % (Auto) 6.0 Eos % (Auto) 0.0 Baso % (Auto) 0.1 Neut # (Auto) 15.1 H Lymph # (Auto) 1.2 [place] # (Auto) 1.0 H Eos # (Auto) 0.0 Baso # (Auto) 0.0 APTT pCO2 pO2 HCO3 ABG pH ABG Total CO2 ABG Base Excess Mendez Test A-a O2 Difference Vent Mode Mechanical Rate FiO2 Tidal Volume PEEP Sodium 140 Potassium 6.0 H Chloride 93 L Carbon Dioxide 24 Anion Gap 29 H BUN 62 H Creatinine 7.8 H* Est GFR ( Amer) 6 Est GFR (Non-Af Amer) 5 POC Glucose (mg/dL) 231 H Random Glucose 219 H Lactic Acid Calcium 8.7 Total Bilirubin AST ALT Alkaline Phosphatase Total Protein Albumin Globulin Albumin/Globulin Ratio 06/16/17 06/16/17 06/17/17 20:41 22:05 04:19 WBC RBC Hgb Hct MCV MCH MCHC RDW Plt Count MPV Neut % (Auto) Lymph % (Auto) [place] % (Auto) Eos % (Auto) Baso % (Auto) Neut # (Auto) Lymph # (Auto) [place] # (Auto) Eos # (Auto) Baso # (Auto) APTT pCO2 30 L pO2 96 HCO3 29.0 H ABG pH 7.56 H ABG Total CO2 27.8 ABG Base Excess 5.2 H Mendez Test Yes A-a O2 Difference 223.0 Vent Mode A/c Mechanical Rate 18 FiO2 50.0 Tidal Volume 500 PEEP 5 Sodium Potassium Chloride Carbon Dioxide Anion Gap BUN Creatinine Est GFR ( Amer) Est GFR (Non-Af Amer) POC Glucose (mg/dL) 329 H Random Glucose Lactic Acid 3.0 H Calcium Total Bilirubin AST ALT Alkaline Phosphatase Total Protein Albumin Globulin Albumin/Globulin Ratio 06/17/17 06/17/17 06/17/17 04:23 04:38 04:38 WBC 15.4 H RBC 3.37 L Hgb 10.1 L Hct 31.7 L MCV 93.9 MCH 29.9 MCHC 31.8 L RDW 17.5 H Plt Count 155 MPV 10.3 Neut % (Auto) 85.0 H Lymph % (Auto) 8.2 L [place] % (Auto) 6.4 Eos % (Auto) 0.2 Baso % (Auto) 0.2 Neut # (Auto) 13.1 H Lymph # (Auto) 1.3 [place] # (Auto) 1.0 H Eos # (Auto) 0.0 Baso # (Auto) 0.0 APTT pCO2 pO2 HCO3 ABG pH ABG Total CO2 ABG Base Excess Mendez Test A-a O2 Difference Vent Mode Mechanical Rate FiO2 Tidal Volume PEEP Sodium 143 Potassium 4.9 Chloride 92 L Carbon Dioxide 28 Anion Gap 28 H BUN 74 H Creatinine 8.4 H* Est GFR ( Amer) 5 Est GFR (Non-Af Amer) 5 POC Glucose (mg/dL) 240 H Random Glucose 214 H Lactic Acid Calcium 8.2 L Total Bilirubin 0.6 AST 124 H D ALT 123 H D Alkaline Phosphatase 92 Total Protein 6.1 L Albumin 3.3 L D Globulin 2.7 Albumin/Globulin Ratio 1.2 06/17/17 06/17/17 06/17/17 04:38 05:16 05:16 WBC RBC Hgb Hct MCV MCH MCHC RDW Plt Count MPV Neut % (Auto) Lymph % (Auto) [place] % (Auto) Eos % (Auto) Baso % (Auto) Neut # (Auto) Lymph # (Auto) [place] # (Auto) Eos # (Auto) Baso # (Auto) APTT 29.9 16.1 L D pCO2 pO2 HCO3 ABG pH ABG Total CO2 ABG Base Excess Mendez Test A-a O2 Difference Vent Mode Mechanical Rate FiO2 Tidal Volume PEEP Sodium Potassium Chloride Carbon Dioxide Anion Gap BUN Creatinine Est GFR ( Amer) Est GFR (Non-Af Amer) POC Glucose (mg/dL) Random Glucose Lactic Acid 3.8 H Calcium Total Bilirubin AST ALT Alkaline Phosphatase Total Protein Albumin Globulin Albumin/Globulin Ratio 06/17/17 11:28 WBC RBC Hgb Hct MCV MCH MCHC RDW Plt Count MPV Neut % (Auto) Lymph % (Auto) [place] % (Auto) Eos % (Auto) Baso % (Auto) Neut # (Auto) Lymph # (Auto) [place] # (Auto) Eos # (Auto) Baso # (Auto) APTT pCO2 pO2 HCO3 ABG pH ABG Total CO2 ABG Base Excess Mendez Test A-a O2 Difference Vent Mode Mechanical Rate FiO2 Tidal Volume PEEP Sodium Potassium Chloride Carbon Dioxide Anion Gap BUN Creatinine Est GFR ( Amer) Est GFR (Non-Af Amer) POC Glucose (mg/dL) 223 H Random Glucose Lactic Acid Calcium Total Bilirubin AST ALT Alkaline Phosphatase Total Protein Albumin Globulin Albumin/Globulin Ratio Assessment & Plan - Assessment and Plan (Free Text) Assessment: ATRIAL FIBRILLATION HISTORY-NOW IN [facility] S/P [facility] IN ER ON ADMISSION MOST PROBABLY FROM HYPERKALEMIA CRF ON HD LEFT PNEUMOTHORAX WITH LEFT CT HYPERTENSION HISTORY DM INFILTRATE RIGHT LUNG PROGNOSIS GUARDED Plan: THE PATIENT IS IN THE ICU ON MV AND HAS A LEFT CHEST TUBE CONTINUE ANTIBIOTICS, AMIODARONE, HEPARIN AMLODIPINE STOPPED BP IS ON THE LOW SIDE-MONITOR BLOOD PRESSURE THE DAUGHTER WAS SPOKEN TO ABOUT HER GUARDED CONDITION
--- NOTE | 2017-06-17 16:45 | CP.PCM.CON ---
History of Present Illness - History of Present Illness History of Present Illness: 86 y/o female with PMHx of cardiac arrhythmia, DM type II, GERD, HTN, HLD, ESRD on HD MWF, and CKD seen at bedside for right foot ulceration. Pt is unable to provide history so it is obtained from chart. At present, pt is receiving dialysis and appears in NAD. Per nursing, denies F/C/N/V. PSH: appendectomy SocHx: Former Smoker; no ETOH; No illegal drug use; lives with family Fam Hx: (+) for HTN All: NKDA Review of Systems - Review of Systems All systems: reviewed and no additional remarkable complaints except (per HPI) Past Patient History - Infectious Disease Hx of Infectious Diseases: None - Tetanus Immunizations Tetanus Immunization: Unknown - Past Medical History & Family History Past Medical History?: Yes - Past Social History Smoking Status: Former Smoker Chewing Tobacco Use: No Alcohol: None Drugs: Denies Home Situation {Lives}: With Family - CARDIAC Hx Atrial Fibrillation: No Hx Cardia Arrhythmia: Yes Hx Congestive Heart Failure: No Hx Hypercholesterolemia: Yes Hx Hypertension: Yes - PULMONARY Hx Chronic Obstructive Pulmonary Disease (COPD): No - NEUROLOGICAL Hx Neurological Disorder: No - HEENT Hx HEENT Problems: Yes Hx Glaucoma: Yes - RENAL Hx Chronic Kidney Disease: Yes Hx Kidney Stones: No - ENDOCRINE/METABOLIC Hx Hypothyroidism: No - HEMATOLOGICAL/ONCOLOGICAL Hx Anemia: Yes Hx Human Immunodeficiency Virus (HIV): No - INTEGUMENTARY Hx Dermatological Problems: No - MUSCULOSKELETAL/RHEUMATOLOGICAL Hx Arthritis: Yes Hx Rheumatoid Arthritis: No - GASTROINTESTINAL Hx Gastrointestinal Disorders: Yes Hx Gastroesophageal Reflux: Yes - GENITOURINARY/GYNECOLOGICAL Hx Genitourinary Disorders: No - PSYCHIATRIC Hx Psychophysiologic Disorder: No Hx Substance Use: No - SURGICAL HISTORY Hx Appendectomy: Yes - ANESTHESIA Hx Anesthesia: Yes Hx Anesthesia Reactions: No Hx Malignant Hyperthermia: No Meds Allergies/Adverse Reactions: Allergies Allergy/AdvReac Type Severity Reaction Status Date / Time No Known Allergies Allergy Verified 06/15/17 17:36 - Medications Medications: Current Medications Amiodarone HCl (Cordarone) 100 mg PO DAILY [facility] Last Admin: 06/16/17 16:25 Dose: Not Given Heparin Sodium (Porcine) (Heparin) 5,000 units SC Q8 [facility] PRN Reason: Protocol Last Admin: 06/17/17 09:01 Dose: 5,000 units Metronidazole (Flagyl 500mg/100ml Ns) 100 mls @ 100 mls/hr IVPB Q8 [facility] PRN Reason: Protocol Last Admin: 06/17/17 09:00 Dose: 100 mls/hr Ciprofloxacin (Cipro 200mg/100ml D5w) 100 mls @ 100 mls/hr IVPB Q12 [facility] Last Admin: 06/17/17 09:00 Dose: 100 mls/hr Insulin Human Regular (Humulin R) 0 units SC Q6H [facility] PRN Reason: Protocol Last Admin: 06/17/17 13:38 Dose: 3 unit Pantoprazole Sodium (Protonix Inj) 40 mg IVP DAILY [facility] Last Admin: 06/17/17 09:01 Dose: 40 mg Timolol Maleate (Timoptic 0.5% Ophth Soln) 1 drop OD DAILY [facility] Last Admin: 06/17/17 09:02 Dose: 1 drop Physical Exam - Constitutional Appears: Non-toxic, No Acute Distress - Extremities Exam Additional comments: RLE focused examination: Vasc: DP/PT pulses palpable 1/4. Temperature gradient warm to cool. No pedal edema noted. Derm: Open ulceration measuring approx 1.1cm x 0.9cm x 0.1cm noted to posterior aspect of R TMA stump. Wound base is mixed fibrogranular with stable hyperkeratotic borders. No active drainage, no purulence, no malodor, no fluctuance, no probe to bone. Neuro: Unable to perform proper neuro assessment due to patient mental status Ortho: Right transmetatarsal amputation, healed - Neurological Exam Neurological exam: Alert - Psychiatric Exam Psychiatric exam: Normal Affect Results - Vital Signs Recent Vital Signs: Last Vital Signs Temp 98.8 F 06/17/17 16:00 Pulse 71 06/17/17 16:00 Resp 18 06/17/17 16:00 BP 122/59 L 06/17/17 16:00 Pulse Ox 99 06/17/17 16:00 - Labs Result Diagrams: 06/17/17 04:38 06/17/17 04:38 Labs: Laboratory Results - last 24 hr 06/16/17 06/16/17 06/16/17 17:25 20:41 20:41 WBC 17.3 H RBC 3.58 L Hgb 10.7 L Hct 33.7 L MCV 94.2 MCH 30.0 MCHC 31.8 L RDW 17.4 H Plt Count 167 MPV 10.1 Neut % (Auto) 87.2 H Lymph % (Auto) 6.7 L Bethel % (Auto) 6.0 Eos % (Auto) 0.0 Baso % (Auto) 0.1 Neut # (Auto) 15.1 H Lymph # (Auto) 1.2 Bethel # (Auto) 1.0 H Eos # (Auto) 0.0 Baso # (Auto) 0.0 APTT pCO2 pO2 HCO3 ABG pH ABG Total CO2 ABG Base Excess Mendez Test A-a O2 Difference Vent Mode Mechanical Rate FiO2 Tidal Volume PEEP Sodium 140 Potassium 6.0 H Chloride 93 L Carbon Dioxide 24 Anion Gap 29 H BUN 62 H Creatinine 7.8 H* Est GFR ( Amer) 6 Est GFR (Non-Af Amer) 5 POC Glucose (mg/dL) 231 H Random Glucose 219 H Lactic Acid Calcium 8.7 Total Bilirubin AST ALT Alkaline Phosphatase Total Protein Albumin Globulin Albumin/Globulin Ratio 06/16/17 06/16/17 06/17/17 20:41 22:05 04:19 WBC RBC Hgb Hct MCV MCH MCHC RDW Plt Count MPV Neut % (Auto) Lymph % (Auto) Bethel % (Auto) Eos % (Auto) Baso % (Auto) Neut # (Auto) Lymph # (Auto) Bethel # (Auto) Eos # (Auto) Baso # (Auto) APTT pCO2 30 L pO2 96 HCO3 29.0 H ABG pH 7.56 H ABG Total CO2 27.8 ABG Base Excess 5.2 H Mendez Test Yes A-a O2 Difference 223.0 Vent Mode A/c Mechanical Rate 18 FiO2 50.0 Tidal Volume 500 PEEP 5 Sodium Potassium Chloride Carbon Dioxide Anion Gap BUN Creatinine Est GFR ( Amer) Est GFR (Non-Af Amer) POC Glucose (mg/dL) 329 H Random Glucose Lactic Acid 3.0 H Calcium Total Bilirubin AST ALT Alkaline Phosphatase Total Protein Albumin Globulin Albumin/Globulin Ratio 06/17/17 06/17/17 06/17/17 04:23 04:38 04:38 WBC 15.4 H RBC 3.37 L Hgb 10.1 L Hct 31.7 L MCV 93.9 MCH 29.9 MCHC 31.8 L RDW 17.5 H Plt Count 155 MPV 10.3 Neut % (Auto) 85.0 H Lymph % (Auto) 8.2 L Bethel % (Auto) 6.4 Eos % (Auto) 0.2 Baso % (Auto) 0.2 Neut # (Auto) 13.1 H Lymph # (Auto) 1.3 Bethel # (Auto) 1.0 H Eos # (Auto) 0.0 Baso # (Auto) 0.0 APTT pCO2 pO2 HCO3 ABG pH ABG Total CO2 ABG Base Excess Mendez Test A-a O2 Difference Vent Mode Mechanical Rate FiO2 Tidal Volume PEEP Sodium 143 Potassium 4.9 Chloride 92 L Carbon Dioxide 28 Anion Gap 28 H BUN 74 H Creatinine 8.4 H* Est GFR ( Amer) 5 Est GFR (Non-Af Amer) 5 POC Glucose (mg/dL) 240 H Random Glucose 214 H Lactic Acid Calcium 8.2 L Total Bilirubin 0.6 AST 124 H D ALT 123 H D Alkaline Phosphatase 92 Total Protein 6.1 L Albumin 3.3 L D Globulin 2.7 Albumin/Globulin Ratio 1.2 06/17/17 06/17/17 06/17/17 04:38 05:16 05:16 WBC RBC Hgb Hct MCV MCH MCHC RDW Plt Count MPV Neut % (Auto) Lymph % (Auto) Bethel % (Auto) Eos % (Auto) Baso % (Auto) Neut # (Auto) Lymph # (Auto) Bethel # (Auto) Eos # (Auto) Baso # (Auto) APTT 29.9 16.1 L D pCO2 pO2 HCO3 ABG pH ABG Total CO2 ABG Base Excess Mendez Test A-a O2 Difference Vent Mode Mechanical Rate FiO2 Tidal Volume PEEP Sodium Potassium Chloride Carbon Dioxide Anion Gap BUN Creatinine Est GFR ( Amer) Est GFR (Non-Af Amer) POC Glucose (mg/dL) Random Glucose Lactic Acid 3.8 H Calcium Total Bilirubin AST ALT Alkaline Phosphatase Total Protein Albumin Globulin Albumin/Globulin Ratio 06/17/17 11:28 WBC RBC Hgb Hct MCV MCH MCHC RDW Plt Count MPV Neut % (Auto) Lymph % (Auto) Bethel % (Auto) Eos % (Auto) Baso % (Auto) Neut # (Auto) Lymph # (Auto) Bethel # (Auto) Eos # (Auto) Baso # (Auto) APTT pCO2 pO2 HCO3 ABG pH ABG Total CO2 ABG Base Excess Mendez Test A-a O2 Difference Vent Mode Mechanical Rate FiO2 Tidal Volume PEEP Sodium Potassium Chloride Carbon Dioxide Anion Gap BUN Creatinine Est GFR ( Amer) Est GFR (Non-Af Amer) POC Glucose (mg/dL) 223 H Random Glucose Lactic Acid Calcium Total Bilirubin AST ALT Alkaline Phosphatase Total Protein Albumin Globulin Albumin/Globulin Ratio Assessment & Plan - Assessment and Plan (Free Text) Assessment: 86 y/o female with right posterior heel ulceration, likely secondary to DM type II worsened by pressure Plan: Pt seen and evaluated in ICU Discussed plan with attending Dr. Griffin Labs and vitals reviewed- afebrile, WBC 15.4 Wound cleansed with saline and dressed with betadine, adaptic, ABD and DSD Multipodus boots to remain on at all times in bed Podiatry will continue to follow Wound is stable from podiatry standpoint
--- NOTE | 2017-06-17 18:35 | CP.PCM.PN ---
Subjective - Date & Time of Evaluation Date of Evaluation: 06/17/17 Time of Evaluation: 15:00 - Subjective Subjective: General Surgery Pt S&E, NAEO. Intubated and sedated. Getting HD today. left chest tube repositioned by Dr. Gu today f/u CXR with slight improvement. Objective - Vital Signs/Intake and Output Vital Signs (last 24 hours): Temp Pulse Resp BP Pulse Ox 98.8 F 72 10 L 186/69 H 99 06/17/17 16:00 06/17/17 18:00 06/17/17 18:00 06/17/17 18:00 06/17/17 18:00 Intake and Output: 06/17/17 06/17/17 06:59 18:59 Intake Total 760 1164 Output Total 100 30 Balance 660 1134 - Medications Medications: Current Medications Amiodarone HCl (Cordarone) 100 mg PO DAILY [facility] Last Admin: 06/17/17 17:07 Dose: Not Given Heparin Sodium (Porcine) (Heparin) 5,000 units SC Q8 [facility] PRN Reason: Protocol Last Admin: 06/17/17 17:09 Dose: Not Given Metronidazole (Flagyl 500mg/100ml Ns) 100 mls @ 100 mls/hr IVPB Q8 [facility] PRN Reason: Protocol Last Admin: 06/17/17 17:08 Dose: 100 mls/hr Ciprofloxacin (Cipro 200mg/100ml D5w) 100 mls @ 100 mls/hr IVPB Q12 [facility] Last Admin: 06/17/17 09:00 Dose: 100 mls/hr Insulin Human Regular (Humulin R) 0 units SC Q6H [facility] PRN Reason: Protocol Last Admin: 06/17/17 18:06 Dose: 2 unit Pantoprazole Sodium (Protonix Inj) 40 mg IVP DAILY [facility] Last Admin: 06/17/17 09:01 Dose: 40 mg Timolol Maleate (Timoptic 0.5% Ophth Soln) 1 drop OD DAILY [facility] Last Admin: 06/17/17 09:02 Dose: 1 drop - Labs Labs: 06/17/17 04:38 06/17/17 04:38 APTT 16.1 Seconds (25.6-37.1) L D 06/17/17 05:16 - Constitutional Appears: Non-toxic, No Acute Distress - Head Exam Head Exam: ATRAUMATIC, NORMOCEPHALIC - Respiratory Exam Respiratory Exam: NORMAL BREATHING PATTERN (on vent). absent: Respiratory Distress Additional comments: L chest tube in place with serosanguinous drainage - GI/Abdominal Exam GI & Abdominal Exam: Soft. absent: Distended, Tenderness - Extremities Exam Extremities Exam: Normal Capillary Refill. absent: Calf Tenderness - Neurological Exam Neurological Exam: absent: Alert, Awake - Skin Skin Exam: Dry, Warm Assessment and Plan - Assessment and Plan (Free Text) Assessment: 86F with left pneumothorax Plan: Chest tube repositioned by Dr. Gu Increased suction to 40mm Hg AM CXR Islas PGY4
[2017-06-18] MEDS: Insulin Regular 100 units/ml SC SCH ×4 (00:54→17:26)
[2017-06-18] MEDS: metroNIDAZOLE 500mg/100ml NS 100 ML IVPB SCH ×3 (00:56→17:24)
[2017-06-18 05:35] LABS: ABG ALLEN TEST YES; ARTERIAL BLOOD GAS HCO3 31.7 mmol/L (21-28); ARTERIAL BLOOD GAS HEMOGLOBIN 9.5 g/dL (11.7-17.4); ARTERIAL BLOOD GAS O2 CAPACITY 13.8 mL/dL (16-24); ARTERIAL BLOOD GAS O2 CONTENT 13.5 ML/dL (15-23); ARTERIAL BLOOD GAS PCO2 32 mm/Hg (35-45); ARTERIAL BLOOD GAS PH 7.59 (7.35-7.45); ARTERIAL BLOOD GAS PO2 174 mm/Hg (80-100); ARTERIAL BLOOD GAS TCO2 31.7 mmol/L (22-28)
--- NOTE | 2017-06-18 06:01 | CP.PCM.PN ---
Subjective - Date & Time of Evaluation Date of Evaluation: 06/18/17 Time of Evaluation: 05:50 - Subjective Subjective: General Surgery Note for Dr. Gu Patient is seen and examined at bedside. No acute event overnight. She is Intubated and on vent support. Patient also being sedated. Left chest tube was repositioned yesterday due to subcutaneous air present. Chest tube had 40 cc of output overnight. Objective - Vital Signs/Intake and Output Vital Signs (last 24 hours): Temp Pulse Resp BP Pulse Ox 98.8 F 70 18 155/53 H 100 06/18/17 00:00 06/18/17 04:00 06/18/17 04:00 06/18/17 04:00 06/18/17 04:00 Intake and Output: 06/17/17 06/18/17 18:59 06:59 Intake Total 1164 769 Output Total 30 Balance 1134 769 - Medications Medications: Current Medications Amiodarone HCl (Cordarone) 100 mg PO DAILY [facility] Last Admin: 06/17/17 17:07 Dose: Not Given Heparin Sodium (Porcine) (Heparin) 5,000 units SC Q8 [facility] PRN Reason: Protocol Last Admin: 06/18/17 00:56 Dose: 5,000 units Metronidazole (Flagyl 500mg/100ml Ns) 100 mls @ 100 mls/hr IVPB Q8 [facility] PRN Reason: Protocol Last Admin: 06/18/17 00:56 Dose: 100 mls/hr Ciprofloxacin (Cipro 200mg/100ml D5w) 100 mls @ 100 mls/hr IVPB Q12 [facility] Last Admin: 06/17/17 20:13 Dose: 100 mls/hr Insulin Human Regular (Humulin R) 0 units SC Q6H [facility] PRN Reason: Protocol Last Admin: 06/18/17 00:54 Dose: Not Given Pantoprazole Sodium (Protonix Inj) 40 mg IVP DAILY [facility] Last Admin: 06/17/17 09:01 Dose: 40 mg Timolol Maleate (Timoptic 0.5% Ophth Soln) 1 drop OD DAILY [facility] Last Admin: 06/17/17 09:02 Dose: 1 drop - Labs Labs: 06/17/17 04:38 06/17/17 04:38 APTT 16.1 Seconds (25.6-37.1) L D 06/17/17 05:16 - Constitutional Appears: No Acute Distress, Chronically Ill - ENT Exam Additional comments: et tube in place - Respiratory Exam Additional comments: intubated and on vent support L chest tube in place with 40 cc of serosanguinous drainage - Cardiovascular Exam Cardiovascular Exam: REGULAR RHYTHM - GI/Abdominal Exam GI & Abdominal Exam: Soft. absent: Distended, Firm - Neurological Exam Neurological Exam: Altered - Psychiatric Exam Psychiatric exam: Flat Affect - Skin Skin Exam: Dry, Warm Assessment and Plan - Assessment and Plan (Free Text) Plan: 86F with left pneumothorax Increased suction to 40mm Hg f/u CXR at 9 am - may need another tube placed if pneumothorax still present Will discuss with Dr. Riccardo Griggs PGY1
[2017-06-18 07:00] LABS: HEMOGLOBIN 9.1 g/dL (12.0-16.0); MEAN CELL VOLUME 93.5 fl (81.0-99.0); MEAN CORPUSCULAR HEMOGLOBIN 29.8 pg (27.0-31.0); MEAN CORPUSCULAR HGB CONC 31.8 g/dL (33.0-37.0); RBC 3.05 Mil/uL (3.80-5.20); RED CELL DISTRIBUTION WIDTH 17.7 % (11.5-14.5); WHITE BLOOD COUNT 16.5 K/uL (4.8-10.8)
[2017-06-18 07:33] LABS: ALB/GLOB RATIO 1.1 (1.0-2.1); ALBUMIN 3.2 g/dL (3.5-5.0); CALCIUM 7.4 mg/dL (8.4-10.2)
--- NOTE | 2017-06-18 08:07 | PN ---
DATE: 06/18/2017 SUBJECTIVE: The patient seen and examined. Interim events noted. Consults noted and appreciated. The patient remains in Intensive Care Unit. On ventilator, not able to provide any information on history or review of systems. Consults noted and appreciated. PHYSICAL EXAMINATION GENERAL: The patient is intubated on mechanical ventilation in Intensive Care Unit. Tolerating current setting without any respiratory distress. VITAL SIGNS: Stable. HEART: S1 and S2, normal and regular. LUNGS: Good bilateral air exchange. ABDOMEN: Soft and nontender. EXTREMITIES: No calf swelling and no tenderness. No acute ischemia. The patient has anasarca looking edema. CENTRAL NERVOUS SYSTEM: The patient is responsive to verbal stimuli by opening eyes, but is non-communicative. Although, the patient is hemodynamically stable. . DIAGNOSTIC DATA: Available diagnostic data reviewed. Telemetry monitoring does not reveal significant arrhythmia. ASSESSMENT AND PLAN: Plan as ordered. Case of plan was discussed with the patient's family at the bedside again. Kaushik Hooker MD
[2017-06-18 08:33] LABS: HEPATITIS B SURFACE AG Negative (NEGATIVE)
[2017-06-18 08:50] LABS: HEPATITIS C ANTIBODY NEGATIVE (NEGATIVE)
[2017-06-18] MEDS: Ciprofloxacin 200mg/100ml D5W 100 ML IVPB SCH ×2 (08:54→20:19)
--- NOTE | 2017-06-18 10:25 | RAD ---
PROCEDURE: CHEST RADIOGRAPH, 1 VIEW HISTORY: left chest tube - vent COMPARISON: 06/17/2017 FINDINGS: LUNGS: No definite infiltrate. Pulmonary parenchymal partially obscured by diffuse subcutaneous emphysema over the chest wall, left greater than right. Left chest tube unchanged grossly in position. PLEURA: No pleural effusion. Small left apical pneumothorax, grossly unchanged accounting for differences in radiographic technique. No right pneumothorax. Extensive subcutaneous emphysema about chest wall and neck. CARDIOVASCULAR: No congestive change. Normal heart size. NG tube and left IJ central venous catheter unchanged. ET tube tip approximately 1.6 cm above tracheal jelani. Consider repositioning more proximally. OSSEOUS STRUCTURES: No significant abnormalities. VISUALIZED UPPER ABDOMEN: Normal. OTHER FINDINGS: None. IMPRESSION: Small left apical pneumothorax, grossly unchanged. Left chest tube. ET tube tip should be considered for more proximal repositioning. NG tube and left IJ central venous catheter unchanged. Diffuse subcutaneous emphysema.
--- NOTE | 2017-06-18 13:55 | CP.PCM.PN ---
Subjective - Date & Time of Evaluation Date of Evaluation: 06/18/17 Time of Evaluation: 12:30 - Subjective Subjective: ON MV Objective - Vital Signs/Intake and Output Vital Signs (last 24 hours): Temp Pulse Resp BP Pulse Ox 99 F 74 18 120/50 L 100 06/18/17 06:00 06/18/17 08:52 06/18/17 06:00 06/18/17 08:52 06/18/17 06:00 Intake and Output: 06/18/17 06/18/17 06:59 18:59 Intake Total 1019 Output Total 8 Balance 1011 - Medications Medications: Current Medications Amiodarone HCl (Cordarone) 100 mg PO DAILY [facility] Last Admin: 06/18/17 08:52 Dose: 100 mg Heparin Sodium (Porcine) (Heparin) 5,000 units SC Q8 [facility] PRN Reason: Protocol Last Admin: 06/18/17 08:52 Dose: 5,000 units Metronidazole (Flagyl 500mg/100ml Ns) 100 mls @ 100 mls/hr IVPB Q8 [facility] PRN Reason: Protocol Last Admin: 06/18/17 08:55 Dose: 100 mls/hr Ciprofloxacin (Cipro 200mg/100ml D5w) 100 mls @ 100 mls/hr IVPB Q12 [facility] Last Admin: 06/18/17 08:54 Dose: 100 mls/hr Insulin Human Regular (Humulin R) 0 units SC Q6H [facility] PRN Reason: Protocol Last Admin: 06/18/17 06:28 Dose: 3 unit Pantoprazole Sodium (Protonix Inj) 40 mg IVP DAILY [facility] Last Admin: 06/18/17 08:52 Dose: 40 mg Timolol Maleate (Timoptic 0.5% Ophth Soln) 1 drop OD DAILY [facility] Last Admin: 06/18/17 08:53 Dose: 1 drop - Labs Labs: 06/18/17 06:00 06/18/17 06:00 APTT 16.1 Seconds (25.6-37.1) L D 06/17/17 05:16 - Respiratory Exam Additional comments: COARSE BREATH SOUNDS - Cardiovascular Exam Cardiovascular Exam: REGULAR RHYTHM, +S1, +S2 - Additional Findings Additional findings: PRESCRIPTIONIST TODAY SHOWS SINUS RHYTHM AT NORMAL RATES BLOOD PRESSURE IS GOOD Assessment and Plan - Assessment and Plan (Free Text) Assessment: S/P HYPERKALEMIA EPISODE IN THE ER UPON ARRIVAL WITH PEA-NOW IN SINUS RHYTHM AT NORMAL RATES AND WITH GOOD BLOOD PRESSURE ATRIAL FIBRILLATION HISTORY LEFT PNEUMOTHARAX ESRD ON HEMODIALYSIS Plan: CONTINUE MV, ANTIBIOTICS, AMIODARONE AND HEPARIN ECHOCARDIOGRAM ORDERED TO ASSESS LV FUNCTION
[2017-06-19] MEDS: metroNIDAZOLE 500mg/100ml NS 100 ML IVPB SCH ×3 (00:07→16:25)
[2017-06-19] MEDS: Insulin Regular 100 units/ml SC SCH ×4 (00:09→17:35)
[2017-06-19 04:22] LABS: ABG ALLEN TEST YES; ARTERIAL BLOOD GAS HCO3 31.3 mmol/L (21-28); ARTERIAL BLOOD GAS HEMOGLOBIN 8.3 g/dL (11.7-17.4); ARTERIAL BLOOD GAS O2 CAPACITY 11.8 mL/dL (16-24); ARTERIAL BLOOD GAS O2 CONTENT 11.2 ML/dL (15-23); ARTERIAL BLOOD GAS O2 SAT 95.1 % (95-98); ARTERIAL BLOOD GAS PCO2 40 mm/Hg (35-45); ARTERIAL BLOOD GAS PH 7.51 (7.35-7.45); ARTERIAL BLOOD GAS PO2 71 mm/Hg (80-100); ARTERIAL BLOOD GAS TCO2 33.1 mmol/L (22-28)
[2017-06-19 05:21] LABS: ALB/GLOB RATIO 1.1 (1.0-2.1); CALCIUM 7.4 mg/dL (8.4-10.2)
[2017-06-19 06:00] LABS: HEMOGLOBIN 8.2 g/dL (12.0-16.0); MEAN CELL VOLUME 92.7 fl (81.0-99.0); MEAN CORPUSCULAR HEMOGLOBIN 30.7 pg (27.0-31.0); MEAN CORPUSCULAR HGB CONC 33.1 g/dL (33.0-37.0); RBC 2.67 Mil/uL (3.80-5.20); RED CELL DISTRIBUTION WIDTH 17.9 % (11.5-14.5); WHITE BLOOD COUNT 14.9 K/uL (4.8-10.8)
--- NOTE | 2017-06-19 07:55 | PN ---
DATE: 06/19/2017 SUBJECTIVE: The patient is seen and examined. Interim events noted. Consults noted and appreciated. The patient remains in Intensive Care Unit on ventilator. Responsive to painful, verbal and tactile stimulus by opening eyes, but no other response. Not able to provide any informative history or review of systems. PHYSICAL EXAMINATION: GENERAL: The patient is orally intubated on mechanical ventilation via endotracheal tube. Tolerating current vent setting without any acute respiratory distress. VITAL SIGNS: Stable. HEART: S1 and S2, normal and regular. LUNGS: Good bilateral air exchange. ABDOMEN: Soft and nontender. EXTREMITIES: The patient is status post amputation. No calf swelling. No tenderness. No acute ischemia. CENTRAL NERVOUS SYSTEM: Exam is essentially unchanged. The patient just opens eye on stimulus, but no other response is elicited. DIAGNOSTIC DATA: Available diagnostic data is reviewed. Telemetry monitoring does not reveal significant arrhythmias. IMPRESSION AND PLAN: Consults noted and appreciated. Overall, the patient's general medical condition is is essentially same. Long-term prognosis remains poor as far as functional outcome . Plan as ordered. Kaushik Hooker MD
--- NOTE | 2017-06-19 08:32 | CP.PCM.PN ---
Subjective - Date & Time of Evaluation Date of Evaluation: 06/19/17 Time of Evaluation: 08:30 - Subjective Subjective: General Surgery: Dr Gu Pt S&E in ICU. Remains intubated, off sedation, no pressors. Pts eyes open spontaneously but pt does not respond to verbal or painful stimuli. CT w/ ~20cc output. No ptx appreciated on todays CXR. subcutaneous empysema is improving but still palpable. ? anoxic brain injury s/p CPR?? d/w language asst, will consider neuro eval Objective - Vital Signs/Intake and Output Vital Signs (last 24 hours): Temp Pulse Resp BP Pulse Ox 98.8 F 77 16 177/54 H 100 06/19/17 06:00 06/19/17 08:21 06/19/17 06:00 06/19/17 08:21 06/19/17 06:00 Intake and Output: 06/19/17 06/19/17 06:59 18:59 Intake Total 1013 Output Total 0 Balance 1013 - Medications Medications: Current Medications Amiodarone HCl (Cordarone) 100 mg PO DAILY [facility] Last Admin: 06/19/17 08:21 Dose: 100 mg Heparin Sodium (Porcine) (Heparin) 5,000 units SC Q8 [facility] PRN Reason: Protocol Last Admin: 06/19/17 08:22 Dose: 5,000 units Metronidazole (Flagyl 500mg/100ml Ns) 100 mls @ 100 mls/hr IVPB Q8 [facility] PRN Reason: Protocol Last Admin: 06/19/17 08:16 Dose: 100 mls/hr Ciprofloxacin (Cipro 200mg/100ml D5w) 100 mls @ 100 mls/hr IVPB Q12 [facility] Last Admin: 06/18/17 20:19 Dose: 100 mls/hr Insulin Human Regular (Humulin R) 0 units SC Q6H [facility] PRN Reason: Protocol Last Admin: 06/19/17 06:29 Dose: 4 unit Pantoprazole Sodium (Protonix Inj) 40 mg IVP DAILY [facility] Last Admin: 06/19/17 08:22 Dose: 40 mg Timolol Maleate (Timoptic 0.5% Ophth Soln) 1 drop OD DAILY [facility] Last Admin: 06/19/17 08:23 Dose: 1 drop - Labs Labs: 06/19/17 04:20 06/19/17 04:20 APTT 16.1 Seconds (25.6-37.1) L D 06/17/17 05:16 - Constitutional Appears: Chronically Ill - ENT Exam ENT Exam: Mucous Membranes Dry - Respiratory Exam Respiratory Exam: absent: Respiratory Distress Additional comments: 45% FiO2, PEEP 5, no air leak, no ptx noted, possible ARDS developing - Cardiovascular Exam Cardiovascular Exam: REGULAR RHYTHM. absent: Tachycardia - GI/Abdominal Exam GI & Abdominal Exam: Soft. absent: Distended - Neurological Exam Neurological Exam: absent: Alert, Oriented x3 - Skin Skin Exam: Normal Color, Warm Assessment and Plan - Assessment and Plan (Free Text) Assessment: 86F w/ left ptx s/p code blue and left IJ placement Plan: residual ptx appears resolved, pt ventilating well, no hypoxia pt has ? anoxic brain injury d/w ICU, would evaluate further w/ neuro before anything more invasive i.e. 2nd chest tube d/w family plans for care moving forward will cont to follow d/w Dr Riccardo Arshad, PGY3
--- NOTE | 2017-06-19 08:56 | PN ---
DATE: 06/18/2017 CRITICAL CARE PROGRESS NOTE LOCATION: The patient in room 435. TIME SPEND: 35 minutes. SUBJECTIVE: The patient is seen and evaluated at the bedside. An 86-year-old female with diabetes, hypertension, and end-stage renal disease, admitted for nausea and pain in abdomen. CT showed nonspecific colitis on Cipro and Flagyl. The patient on admission noted to have hyperkalemia status post cardiopulmonary resuscitation. Post-resuscitation, left pneumothorax remains intubated on mechanical ventilation. AC 18, tidal volume of 500, FiO2 50%, PEEP of 5, observed rate 19, exhaled tidal volume 510, minute ventilation 8.7 liters, and saturation 100%. Peak airway pressure in the high 30s and tidal CO2 25. No sedation. Remains non-responsive to verbal commands. Responds to painful stimuli by grimacing face. OBJECTIVE: VITAL SIGNS: Temperature 99, heart rate 74 regular, blood pressure 120/50, oxygen saturation 100% on FiO2 of 50%. INTAKE AND OUTPUT: Intake 2183, output 38, positive balance 2145 mL status post dialysis yesterday. HEENT: Pupils are 3-4 mm with midline, reactive to light, but sluggish. No nystagmus. No gaze from preference. HEART: Rhythm irregular. S1, S2 normal intensity. CHEST: Bilateral breath sounds, clear to auscultation anteriorly and laterally. ABDOMEN: Bowel sounds present. Soft. EXTREMITIES: Dependent edema of upper and lower extremities. Bilateral transmetatarsal amputation. Dressing intact on the right ankle. NEUROLOGIC: Grimaces to pain. CURRENT MEDICATIONS: Ciprofloxacin 200 mg IV q.12 hours, Flagyl 500 mg q.8 hours, heparin 5000 units subcu q.8 hours, amiodarone 100 mg p.o. daily, Protonix 40 IV daily, and timolol maleate Timoptic 0.5% ophthalmic solution 1 drop daily. LABORATORY DATA: WBC 16.5, hemoglobin 9.1, hematocrit 28.5, and platelet count 135. PT 16.1 and PTT 29.9. ABG pH of 7.59, pCO2 of 32, pO2 of 174, and oxygen saturation of 98%. AC 18, tidal volume 500, and FiO2 50%. SMA-7 sodium 136, potassium 3.4, chloride 90, CO2 31, blood urea nitrogen 58, creatinine 5.3, random glucose 244, calcium 7.4, total bilirubin 0.6, AST , ALT 196, alkaline phosphatase 121, total protein 6, and albumin 3.2. Hepatitis B surface antigen negative, surface antibody negative. Hepatitis C core antibody negative. Chest x-ray: Endotracheal tube of 3 cm above the level of jelani, diffuse subcutaneous emphysema, left greater than right. Left chest tube in place connected to wall suction, pneumothorax unchanged. IMPRESSION AND PLAN: 1. Neurologic: Possible anoxic encephalopathy, superimposed on metabolic encephalopathy status post cardiac arrest, resuscitated and remains in sinus rhythm. Alternating with irregularity, question paroxysmal atrial fibrillation. 2. Pulmonary: Acute respiratory failure on ventilator. Minimal to no overdrive, on current vent setting. ABG shows significant alkalosis. Respiratory rate reduced , FiO2 45%, maintain saturation over 94%, followup ABG. 3. Cardiac: Status post cardiac arrest, resuscitation, history of hypertension. Remains controlled. 4. Gastrointestinal: Tolerating feeding. 5. Renal: Acute on chronic renal failure on hemodialysis, completed dialysis yesterday. Potassium improved and remains within the range. 6. Infectious Disease: Suspected nonspecific colitis, on Cipro and Flagyl. We will obtain ID consult to optimize the treatment for intra-abdominal as well as possible vent-associated pneumonia. David Joiner MD MTDD
[2017-06-19] MEDS: Ciprofloxacin 200mg/100ml D5W 100 ML IVPB SCH ×2 (09:20→21:22)
--- NOTE | 2017-06-19 09:23 | PN ---
DATE: 06/17/2017 CRITICAL CARE PROGRESS NOTE LOCATION: The patient is in ICU bed 435. TIME SPENT: 35 minutes. SUBJECTIVE: The patient is seen and evaluated at the bedside. Past medical, surgical and social history reviewed. Events since admission in ER noted. An 86-year-old female with history significant for diabetes mellitus type 2, hypertension, and end-stage renal disease on three times a week hemodialysis admitted through Emergency Room when she presented with pain in lower abdomen. CT showed nonspecific colitis. In ER, the patient was noted to be in pulseless electrical activity with no pulse status post resuscitation with two rounds of epinephrine, intubated and placed on mechanical ventilation. patient was noted to have pneumothorax on the left chest requiring left chest tube insertion. Repeat chest x-ray showed expansion of the left lung, but with residual pneumothorax, has significant subcutaneous emphysema, remains on ventilator, on AC 18, tidal volume of 500, FiO2 of 58%, saturating 99%, minute ventilation 8.1 liters, and observed volume 510. OBJECTIVE: HEENT: Atraumatic and normocephalic. Pupils 2-3 mm poorly reactive. NECK: Supple. Endotracheal tube in place. No secretion noted. NG tube in place. Feeding in progress. CHEST: Bilateral breath sounds. Clear to auscultation anteriorly and laterally. HEART: Rhythm regular. S1 and S2 normal. ABDOMEN: Bowel sounds are present. Soft. EXTREMITIES: AV fistula in place with good bruit. NEUROLOGIC: Remains without response to verbal commands. Grimaces to painful stimuli. CURRENT MEDICATIONS: Include amiodarone 100 mg p.o. daily, Norvasc 5 mg daily on hold secondary to low blood pressure, ciprofloxacin 200 mg q.12 hours, heparin 5000 units subcu q.8 hours, Accu-Chek with regular insulin coverage, Flagyl 500 mg q.8 hours, Protonix 40 IV daily, and Timolol eyedrops 1 drop once daily. LABORATORY DATA: WBC 15.4, hemoglobin 10.1, hematocrit 31.7, and platelet count 155, neutrophils 85, lymphocytes 8.2, and monocytes 6.4. PT 16.1. ABG; pH of 7.56, pCO2 of 30, pO2 of 96, oxygen saturation 95.6 on AC 18, 550 percent. SMA-7; sodium 143, potassium 4.9, chloride 92, CO2 28, blood urea nitrogen 74, creatinine 8.4, and random glucose 223. Microbiology, nasal smear MRSA negative. Chest x-ray from this morning, endotracheal tube 3.36 cm above the jelani, NGT in place, left-sided chest tube present, no change left IJ central venous line with the tip in the distal brachiocephalic SVC junction. Residual moderate size left-sided pneumothorax slightly diminished in size from prior study. Diffuse subcutaneous emphysema over the lining the left hemithorax, left supraclavicular and right supraclavicular regions as well as the lower neck obscure fine details. IMPRESSION AND PLAN: 1. Neuro: Status post cardiopulmonary resuscitation, suspected anoxic encephalopathy, metabolic encephalopathy, nonspecific colitis in the abdomen, with possible septic encephalopathy as well. Continue to monitor improvement in mental status. 2. Pulmonary: Acute respiratory failure with bilateral pleural effusion and atelectasis, currently intubated, not able to wean off at this point due to the change in the mental status. 3. Cardiac: Status post pulseless electrical activity arrest, resuscitated after brief period of resuscitation, history of hypertension, now remains hypotensive off blood pressure medications. 4. Renal: History of chronic renal failure, presented with hyperkalemia, status post treatment with Kayexalate and D50 insulin, had short session of dialysis yesterday due to hypotension. She is scheduled for dialysis today as tolerated. Hyperkalemia improved currently 4.6. No EKG abnormalities noted. 5. Hematology: Leukocytosis, anemia of chronic disease, normal platelet count. Leukocytosis trending down. 6. Endocrine: History of diabetes mellitus type 2, currently random glucose 223. Continue coverage to maintain sugar less than 180 . 7. FEN: Continue feeding through the PEG as tolerated. Monitor for further derangement of electrolytes. Prognosis remains guarded. Discussed with family and Cardiology consult. Also discussed with surgical services manager regarding the persistent of pneumothorax and the subcutaneous emphysema. David Joiner MD MTDTurner
--- NOTE | 2017-06-19 09:55 | CP.PCM.PN ---
Subjective - Date & Time of Evaluation Date of Evaluation: 06/19/17 Time of Evaluation: 09:52 - Subjective Subjective: 86 year old female seen at bedside for stable right posterior heel ulcer. Patient is intubated and unable to communicate at this time. Per nursing and chart, no acute overnight events. No recent n/v/f/sob/d Objective - Vital Signs/Intake and Output Vital Signs (last 24 hours): Temp Pulse Resp BP Pulse Ox 98.8 F 77 16 177/54 H 100 06/19/17 06:00 06/19/17 08:21 06/19/17 06:00 06/19/17 08:21 06/19/17 06:00 Intake and Output: 06/19/17 06/19/17 06:59 18:59 Intake Total 1013 Output Total 0 Balance 1013 - Medications Medications: Current Medications Amiodarone HCl (Cordarone) 100 mg PO DAILY [facility] Last Admin: 06/19/17 08:21 Dose: 100 mg Heparin Sodium (Porcine) (Heparin) 5,000 units SC Q8 MOHINDER PRN Reason: Protocol Last Admin: 06/19/17 08:22 Dose: 5,000 units Metronidazole (Flagyl 500mg/100ml Ns) 100 mls @ 100 mls/hr IVPB Q8 MOHINDER PRN Reason: Protocol Last Admin: 06/19/17 08:16 Dose: 100 mls/hr Ciprofloxacin (Cipro 200mg/100ml D5w) 100 mls @ 100 mls/hr IVPB Q12 [facility]OH[facility] Last Admin: 06/19/17 09:20 Dose: 100 mls/hr Insulin Human Regular (Humulin R) 0 units SC Q6H MOHINDER PRN Reason: Protocol Last Admin: 06/19/17 06:29 Dose: 4 unit Pantoprazole Sodium (Protonix Inj) 40 mg IVP DAILY [facility] Last Admin: 06/19/17 08:22 Dose: 40 mg Timolol Maleate (Timoptic 0.5% Ophth Soln) 1 drop OD DAILY [facility] Last Admin: 06/19/17 08:23 Dose: 1 drop - Labs Labs: 06/19/17 04:20 06/19/17 04:20 APTT 16.1 Seconds (25.6-37.1) L D 06/17/17 05:16 - Constitutional Appears: Non-toxic, No Acute Distress - Extremities Exam Additional comments: RLE focused examination: Vasc: DP/PT pulses palpable 1/4. Temperature gradient warm to cool. No pedal edema noted. Derm: Open ulceration measuring approx 1.1cm x 0.9cm x 0.1cm noted to posterior aspect of R TMA stump. Wound base is mixed fibrogranular with stable hyperkeratotic borders. No active drainage, no purulence, no malodor, no fluctuance, no probe to bone. Neuro: Unable to perform proper neuro assessment due to patient mental status Ortho: Right transmetatarsal amputation, healed - Neurological Exam Neurological Exam: Awake - Psychiatric Exam Psychiatric exam: Normal Affect, Normal Mood Assessment and Plan - Assessment and Plan (Free Text) Assessment: 86 y/o female with right posterior heel ulceration, likely secondary to DM type II worsened by pressure Plan: Pt seen and evaluated in ICU Plan discussed with attending Dr. Griffin Labs and vitals reviewed- afebrile, WBC 14.9 Wound cleansed with saline and dressed with adaptic, ABD and DSD Multipodus boots to remain on at all times in bed Podiatry will continue to follow Wound is stable from podiatry standpoint
--- NOTE | 2017-06-19 11:12 | RAD ---
PROCEDURE: CHEST RADIOGRAPH, 1 VIEW HISTORY: left chest tube - vent COMPARISON: None available. FINDINGS: In situ left-sided chest tube. ETT tip lies approximately 1.5 cm above the jelani and could be withdrawn slightly. LUNGS: NGT is present, the tip of which has not been included on this film though does lie well below EG junction in the region of the right upper quadrant the so far as can be seen. Moderate-sized residual left-sided pneumothorax with apparent atelectasis the left mid lung zone of the collapsed lung. . Mild right basilar atelectasis felt be present Overlying subcutaneous emphysema left greater than right with emphysema extending into the supraclavicular regions and base of neck partially obscure fine detail. PLEURA: No pneumothorax or pleural fluid seen. CARDIOVASCULAR: Normal. OSSEOUS STRUCTURES: No significant abnormalities. VISUALIZED UPPER ABDOMEN: Normal. OTHER FINDINGS: None. IMPRESSION: ETT NGT and left-sided chest tube as described. Diffuse bilateral subcutaneous emphysema (left greater than right) partially obscures fine soft tissue and bone detail Moderate residual left-sided pneumothorax. Bilateral atelectasis as described.
--- NOTE | 2017-06-19 11:34 | CP.PCM.PN ---
Subjective - Date & Time of Evaluation Date of Evaluation: 06/19/17 Time of Evaluation: 11:00 - Subjective Subjective: INTUBATED ON MV Objective - Vital Signs/Intake and Output Vital Signs (last 24 hours): Temp Pulse Resp BP Pulse Ox 99 F 55 L 12 135/42 L 100 06/19/17 08:00 06/19/17 11:00 06/19/17 11:00 06/19/17 11:00 06/19/17 11:00 Intake and Output: 06/19/17 06/19/17 06:59 18:59 Intake Total 1013 580 Output Total 0 Balance 1013 580 - Medications Medications: Current Medications Amiodarone HCl (Cordarone) 100 mg PO DAILY [facility] Last Admin: 06/19/17 08:21 Dose: 100 mg Heparin Sodium (Porcine) (Heparin) 5,000 units SC Q8 MOHINDER PRN Reason: Protocol Last Admin: 06/19/17 08:22 Dose: 5,000 units Metronidazole (Flagyl 500mg/100ml Ns) 100 mls @ 100 mls/hr IVPB Q8 MOHINDER PRN Reason: Protocol Last Admin: 06/19/17 08:16 Dose: 100 mls/hr Ciprofloxacin (Cipro 200mg/100ml D5w) 100 mls @ 100 mls/hr IVPB Q12 [facility] Last Admin: 06/19/17 09:20 Dose: 100 mls/hr Insulin Human Regular (Humulin R) 0 units SC Q6H MOHINDER PRN Reason: Protocol Last Admin: 06/19/17 11:22 Dose: 3 unit Pantoprazole Sodium (Protonix Inj) 40 mg IVP DAILY [facility] Last Admin: 06/19/17 08:22 Dose: 40 mg Timolol Maleate (Timoptic 0.5% Oph Soln) 1 drop OD DAILY [facility] Last Admin: 06/19/17 08:23 Dose: 1 drop - Labs Labs: 06/19/17 04:20 06/19/17 04:20 APTT 16.1 Seconds (25.6-37.1) L D 06/17/17 05:16 - Respiratory Exam Additional comments: DECREASED BS LEFT LUNG FIELD COARSE BS RIGHT LUNG FIELD - Cardiovascular Exam Cardiovascular Exam: Irregular Rhythm, +S1, +S2 - Additional Findings Additional findings: BLOOD PRESSURE AND HEART RATEW ARE GOOD STOP ATTACHER AND EKG RHYTHM STRIPS SHOW SINUS RHYTHM WITH SINUS ARRYTHMIA, OCCASIONAL PAC WITH SOME BLOCKED PACS, BUT NO LONG PAUSES OR HIGH DEGREE AV BLOCKS CXR REPORT SEEN Assessment and Plan - Assessment and Plan (Free Text) Assessment: HISTORY OF ATRIAL FIBRILLATION-NOW IN SINUS RHYTHM HYPERTENSION CRF ON HD AND HYPERKALEMIA ON ADMISSION WITH RESULTANT CARDIAC ARREST ANOXIC ENCEPHALOPATHY? LEFT PNEUMOTHORAX WITH CT INSERTION PROGNOSIS VERY GUARDED Plan: CONTINUE MECHANICAL VENTILATION CONTINUE ANTIBIOTICS, AMIODARONE, HEPARIN AND PROTONIX NEUROLOGY TO SEE FAMILY SPOKEN TI INCLUDING LONG DISCUSSION WITH THE PATIENT'S GRANDDAUGHTER WHO IS AN ER NURSE
--- NOTE | 2017-06-19 13:48 | CP.PCM.CON ---
History of Present Illness - History of Present Illness History of Present Illness: Mrs. Hamilton is an 86-year-old woman with a past medical history of DM2, HTN, ESRD on dialysis came into the ED for abdominal pain on the left side with some nausea. She was hyperkalemic, and had cardiac arrest with PEA. During the code blue, she developed a pneumothorax. Currently, she is intubated, off sedation and continues to be non-responsive. Review of Systems - Review of Systems Systems not reviewed;Unavailable: Acuity of Condition, Intubated All systems: reviewed and no additional remarkable complaints except Past Patient History - Infectious Disease Hx of Infectious Diseases: None - Tetanus Immunizations Tetanus Immunization: Unknown - Past Medical History & Family History Past Medical History?: Yes - Past Social History Smoking Status: Former Smoker Chewing Tobacco Use: No Alcohol: None Drugs: Denies Home Situation {Lives}: With Family - CARDIAC Hx Atrial Fibrillation: No Hx Cardia Arrhythmia: Yes Hx Congestive Heart Failure: No Hx Hypercholesterolemia: Yes Hx Hypertension: Yes - PULMONARY Hx Chronic Obstructive Pulmonary Disease (COPD): No - NEUROLOGICAL Hx Neurological Disorder: No - HEENT Hx HEENT Problems: Yes Hx Glaucoma: Yes - RENAL Hx Chronic Kidney Disease: Yes Hx Kidney Stones: No - ENDOCRINE/METABOLIC Hx Hypothyroidism: No - HEMATOLOGICAL/ONCOLOGICAL Hx Anemia: Yes Hx Human Immunodeficiency Virus (HIV): No - INTEGUMENTARY Hx Dermatological Problems: No - MUSCULOSKELETAL/RHEUMATOLOGICAL Hx Arthritis: Yes Hx Rheumatoid Arthritis: No - GASTROINTESTINAL Hx Gastrointestinal Disorders: Yes Hx Gastroesophageal Reflux: Yes - GENITOURINARY/GYNECOLOGICAL Hx Genitourinary Disorders: No - PSYCHIATRIC Hx Psychophysiologic Disorder: No Hx Substance Use: No - SURGICAL HISTORY Hx Appendectomy: Yes - ANESTHESIA Hx Anesthesia: Yes Hx Anesthesia Reactions: No Hx Malignant Hyperthermia: No Meds Allergies/Adverse Reactions: Allergies Allergy/AdvReac Type Severity Reaction Status Date / Time No Known Allergies Allergy Verified 06/15/17 17:36 - Medications Medications: Current Medications Amiodarone HCl (Cordarone) 100 mg PO DAILY [facility] Last Admin: 06/19/17 08:21 Dose: 100 mg Heparin Sodium (Porcine) (Heparin) 5,000 units SC Q8 MOHINDER PRN Reason: Protocol Last Admin: 06/19/17 08:22 Dose: 5,000 units Metronidazole (Flagyl 500mg/100ml Ns) 100 mls @ 100 mls/hr IVPB Q8 MHOINDER PRN Reason: Protocol Last Admin: 06/19/17 08:16 Dose: 100 mls/hr Ciprofloxacin (Cipro 200mg/100ml D5w) 100 mls @ 100 mls/hr IVPB Q12 [facility] Last Admin: 06/19/17 09:20 Dose: 100 mls/hr Insulin Human Regular (Humulin R) 0 units SC Q6H MOHINDER PRN Reason: Protocol Last Admin: 06/19/17 11:22 Dose: 3 unit Pantoprazole Sodium (Protonix Inj) 40 mg IVP DAILY [facility] Last Admin: 06/19/17 08:22 Dose: 40 mg Timolol Maleate (Timoptic 0.5% Ophth Soln) 1 drop OD DAILY [facility] Last Admin: 06/19/17 08:23 Dose: 1 drop Physical Exam - Neurological Exam Additional comments: Intubated, off sedation, has pupillary response, corneal response and breathing over the ventilator. Opens eyes spontaneously, but not to command, decerebrate posturing. GCS = 5T Results - Vital Signs Recent Vital Signs: Last Vital Signs Temp 98.9 F 06/19/17 12:00 Pulse 47 L 06/19/17 13:00 Resp 22 06/19/17 13:00 BP 155/50 H 06/19/17 13:00 Pulse Ox 100 06/19/17 13:00 - Labs Result Diagrams: 06/19/17 04:20 06/19/17 04:20 Labs: Laboratory Results - last 24 hr 06/18/17 06/18/17 06/19/17 17:21 21:28 04:06 WBC RBC Hgb Hct MCV MCH MCHC RDW Plt Count pCO2 pO2 HCO3 ABG pH ABG Total CO2 ABG O2 Saturation ABG O2 Content ABG Base Excess ABG Hemoglobin ABG Carboxyhemoglobin POC ABG HHb (Measured) ABG Methemoglobin ABG O2 Capacity Mendez Test A-a O2 Difference Hgb O2 Saturation Vent Mode Mechanical Rate FiO2 Tidal Volume PEEP Sodium Potassium Chloride Carbon Dioxide Anion Gap BUN Creatinine Est GFR ( Amer) Est GFR (Non-Af Amer) POC Glucose (mg/dL) 372 H 315 H 271 H Random Glucose Calcium Total Bilirubin AST ALT Alkaline Phosphatase Total Protein Albumin Globulin Albumin/Globulin Ratio 06/19/17 06/19/17 06/19/17 04:18 04:20 04:20 WBC 14.9 H RBC 2.67 L Hgb 8.2 L Hct 24.8 L MCV 92.7 MCH 30.7 MCHC 33.1 RDW 17.9 H Plt Count 128 L pCO2 40 pO2 71 L HCO3 31.3 H ABG pH 7.51 H ABG Total CO2 33.1 H ABG O2 Saturation 95.1 ABG O2 Content 11.2 L ABG Base Excess 8.2 H ABG Hemoglobin 8.3 L ABG Carboxyhemoglobin 0 L POC ABG HHb (Measured) 4.9 ABG Methemoglobin 0.0 ABG O2 Capacity 11.8 L Mendez Test Yes A-a O2 Difference 200.0 Hgb O2 Saturation 95.1 Vent Mode A/c Mechanical Rate 16 FiO2 45.0 Tidal Volume 500 PEEP 5 Sodium 139 Potassium 3.5 L Chloride 93 L Carbon Dioxide 31 H Anion Gap 19 BUN 83 H Creatinine 7.1 H Est GFR ( Amer) 7 Est GFR (Non-Af Amer) 5 POC Glucose (mg/dL) Random Glucose 242 H Calcium 7.4 L Total Bilirubin 0.6 AST 150 H D ALT 288 H D Alkaline Phosphatase 164 H D Total Protein 5.8 L Albumin 3.0 L Globulin 2.8 Albumin/Globulin Ratio 1.1 06/19/17 11:17 WBC RBC Hgb Hct MCV MCH MCHC RDW Plt Count pCO2 pO2 HCO3 ABG pH ABG Total CO2 ABG O2 Saturation ABG O2 Content ABG Base Excess ABG Hemoglobin ABG Carboxyhemoglobin POC ABG HHb (Measured) ABG Methemoglobin ABG O2 Capacity Mendez Test A-a O2 Difference Hgb O2 Saturation Vent Mode Mechanical Rate FiO2 Tidal Volume PEEP Sodium Potassium Chloride Carbon Dioxide Anion Gap BUN Creatinine Est GFR ( Amer) Est GFR (Non-Af Amer) POC Glucose (mg/dL) 217 H Random Glucose Calcium Total Bilirubin AST ALT Alkaline Phosphatase Total Protein Albumin Globulin Albumin/Globulin Ratio Assessment & Plan (1) Anoxic brain injury Assessment and Plan: Will repeat CT head for further evaluation and obtain an EEG. In the meantime, there are multiple medical co-morbidities that complicate the patient's mental status. We will continue following form a neurological stand-point. Based on examination, she has a severe cortical injury, but brainstem reflexes are still intact. Thank you. Status: Acute Priority: High
--- NOTE | 2017-06-19 14:50 | CT ---
PROCEDURE: CT scan brain dated 06/19/2017 HISTORY: Anoxic injury. COMPARISON: None available. Comparison made with prior CT scan of the brain dated 06/16/2017. TECHNIQUE: Contiguous helical/transaxial computed tomography images were obtained through the head/brain without intravenous contrast. Radiation dose: Total exam DLP = 851.51 mGy-cm. This CT exam was performed using one or more of the following dose reduction techniques: Automated exposure control, adjustment of the mA and/or kV according to patient size, and/or use of iterative reconstruction technique. FINDINGS: HEMORRHAGE: No acute parenchymal, subarachnoid or extra-axial hemorrhage. BRAIN: Mild to moderate diffuse/confluent chronic white matter ischemic changes seen extending peripherally into the deep and subcortical white matter both cerebral hemispheres. There also appear to be a few scattered chronic bilateral basal nuclei lacunar type infarcts. Moderate generalized volume loss. Dense vascular calcifications of both carotid siphons. VENTRICLES: No obstructive hydrocephalus. CALVARIUM: There are no acute calvarial fractures PARANASAL SINUSES: Visualized paranasal sinuses are well-developed and currently well-aerated. Minor mucosal thickening seen within in the sphenoid sinus and a few ethmoid air cells. MASTOID AIR CELLS: Unremarkable a the mastoid air complexes are well-developed and currently well-aerated. OTHER FINDINGS: Changes of bilateral cataract surgery again noted. Subcutaneous emphysema present within the soft tissues of the neck and skullbase likely related to known left-sided pneumothorax. IMPRESSION: No acute intracranial hemorrhage. Mild to moderate chronic white matter ischemic changes . 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 Moderate generalized volume loss.
--- NOTE | 2017-06-19 15:22 | CARD ---
APPROVED REPORT EXAM: Two-dimensional and M-mode echocardiogram with Doppler and color Doppler. Other Information Quality : PoorRhythm : Bradycardia Technically limited study due to No Echo Window,Pt has chest tube. INDICATION LV Function:SystolicDiastolic Mitral Valve E/A ratio0.0 TDI E/Lateral E'0.0E/Medial E'0.0 LEFT VENTRICLE not seen not seen not seen not seen not seen not ssen not seen not seen not seen RIGHT VENTRICLE not seen not seen not seen ATRIA not seen not seen not seen AORTIC VALVE not seen not seen not seen MITRAL VALVE not seen not seen not seen not seen TRICUSPID VALVE not seen not seen not seen not seen PULMONIC VALVE not seen not seen GREAT VESSELS not seen not seen PERICARDIAL EFFUSION not seen not seen <Conclusion> This study was attemped but could not be performed as no echocardiographic window could be found due to the pneumothorax and subcutaneous emphysema.
--- NOTE | 2017-06-19 15:39 | CP.PCM.PN ---
Subjective - Date & Time of Evaluation Date of Evaluation: 06/19/17 Time of Evaluation: 15:30 - Subjective Subjective: SEEN ON RENAL F/U IN ICU GETTING HER HD AROUND 4.00 PM INTUBATED IN COMA .. NEUROLOGY CONSULT READ GETTING EEG WRITE NOW .. 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 Objective - Vital Signs/Intake and Output Vital Signs (last 24 hours): Temp Pulse Resp BP Pulse Ox 98.9 F 60 12 153/59 H 100 06/19/17 12:00 06/19/17 14:00 06/19/17 14:00 06/19/17 14:00 06/19/17 14:00 Intake and Output: 06/19/17 06/19/17 06:59 18:59 Intake Total 1013 715 Output Total 0 Balance 1013 715 - Medications Medications: Current Medications Amiodarone HCl (Cordarone) 100 mg PO DAILY [facility] Last Admin: 06/19/17 08:21 Dose: 100 mg Ascorbic Acid (Vitamin C 500 Mg Tab) 1,000 mg PO DAILY [facility] Heparin Sodium (Porcine) (Heparin) 5,000 units SC Q8 [facility] PRN Reason: Protocol Last Admin: 06/19/17 08:22 Dose: 5,000 units Metronidazole (Flagyl 500mg/100ml Ns) 100 mls @ 100 mls/hr IVPB Q8 [facility] PRN Reason: Protocol Last Admin: 06/19/17 08:16 Dose: 100 mls/hr Ciprofloxacin (Cipro 200mg/100ml D5w) 100 mls @ 100 mls/hr IVPB Q12 [facility] Last Admin: 06/19/17 09:20 Dose: 100 mls/hr Insulin Human Regular (Humulin R) 0 units SC Q6H [facility] PRN Reason: Protocol Last Admin: 06/19/17 11:22 Dose: 3 unit Pantoprazole Sodium (Protonix Inj) 40 mg IVP DAILY [facility] Last Admin: 06/19/17 08:22 Dose: 40 mg Timolol Maleate (Timoptic 0.5% Ophth Soln) 1 drop OD DAILY [facility] Last Admin: 06/19/17 08:23 Dose: 1 drop Vitamin B Complex/Vit C/Folic Acid (Nephro-Lori) 1 tab PO DAILY [facility] - Labs Labs: 06/19/17 04:20 06/19/17 04:20 APTT 16.1 Seconds (25.6-37.1) L D 06/17/17 05:16 Assessment and Plan - Assessment and Plan (Free Text) Assessment: ESRD ON HD M W F AND SAT ANEMIA OF CKD .. WILL START IV IRON AND EPO S/P CPR VDRF .. ON VENT P : C/O HD C/O SUPPORTIVE CARE
[2017-06-19] MEDS ORDERED: Ergocalciferol 50,000 Intl Units Cap PO SCH (15:45)
--- NOTE | 2017-06-19 16:03 | CT ---
PROCEDURE: CT scan chest dated 06/19/2017 HISTORY: Pneumothorax. COMPARISON: Comparison made with chest x-ray obtained earlier same day. TECHNIQUE: Contiguous helical/transaxial images were obtained through the chest without intravenous contrast enhancement. Sagittal and coronal reconstructions were performed. Radiation dose (DLP): 689.82 mGy-cm. This CT exam was performed using one or more of the following dose reduction techniques: Automated exposure control, adjustment of the mA and/or kV according to patient size, and/or use of iterative reconstruction technique. . FINDINGS: LUNGS: Current study reveals in situ left-sided chest tube extends posteriorly of which appears to extend into the posterior lung parenchyma itself. There is a large left sided anterior pneumothorax. . Areas of atelectasis and or consolidation seen in the partially collapsed lung. . Questionable tiny left-sided effusion. Mild left basilar atelectasis There also appears to be a trace right-sided effusion. Areas of atelectasis present in both lung bases including the of middle lobe region. MEDIASTINUM: Heart size is enlarged. No significant pericardial effusion. The ascending thoracic aorta measures approximately 3.17 cm and descending thoracic aorta measures approximately 2.3 cm. Pulmonary trunk measures approximately 3.5 cm. In situ tracheostomy tube of with tip located in the proximal right mainstem bronchus. This should be withdrawn. . In situ ETT, the tip of which lies in the lower stomach in good position. There are multiple on mediastinal lymph nodes the largest in the pretracheal region extending to the right of midline measuring 18 mm though this does exhibit a fatty center. The 2nd 13.2 mm lymph node seen in the left pre carinal regions. Several small prevascular lymph nodes also present. PLEURA: As above. BONES: Mild multilevel degenerative spondylosis of the thoracic spine. UPPER ABDOMEN: Grossly unremarkable. OTHER FINDINGS: Extensive subcutaneous emphysema left greater right and anterior greater than posterior with extension superiorly into the supraclavicular region and base of neck. IMPRESSION: There is a large anterior pneumothorax left left-sided pneumothorax. In situ left-sided chest tube extends posteriorly and appears to extend through the posterior lung parenchyma. Areas of atelectasis and or consolidation seen in the partially collapsed lung. . Questionable tiny left-sided effusion. Mild left basilar atelectasis There also appears to be a trace right-sided effusion. Areas of atelectasis present in both lung bases including the of middle lobe region. In situ ETT with tip in the right proximal mainstem bronchus and should be withdrawn. Note these findings were discussed with Dr. Joiner at approximately 3:50 p.m. with written down and read back verification.
[2017-06-20] MEDS: metroNIDAZOLE 500mg/100ml NS 100 ML IVPB SCH ×3 (00:09→16:10)
[2017-06-20] MEDS: Insulin Regular 100 units/ml SC SCH ×4 (00:10→17:34)
[2017-06-20 04:17] LABS: HEMOGLOBIN 8.8 g/dL (12.0-16.0); MEAN CORPUSCULAR HEMOGLOBIN 30.7 pg (27.0-31.0); MEAN CORPUSCULAR HGB CONC 32.7 g/dL (33.0-37.0); RBC 2.85 Mil/uL (3.80-5.20); RED CELL DISTRIBUTION WIDTH 17.5 % (11.5-14.5); WHITE BLOOD COUNT 17.6 K/uL (4.8-10.8)
[2017-06-20 04:23] LABS: ABG ALLEN TEST YES; ARTERIAL BLOOD GAS HEMOGLOBIN 9.6 g/dL (11.7-17.4); ARTERIAL BLOOD GAS O2 CAPACITY 13.8 mL/dL (16-24); ARTERIAL BLOOD GAS O2 CONTENT 13.1 ML/dL (15-23); ARTERIAL BLOOD GAS O2 SAT 95.1 % (95-98); ARTERIAL BLOOD GAS PCO2 40 mm/Hg (35-45); ARTERIAL BLOOD GAS PH 7.49 (7.35-7.45); ARTERIAL BLOOD GAS PO2 152 mm/Hg (80-100); ARTERIAL BLOOD GAS TCO2 31.7 mmol/L (22-28)
[2017-06-20 04:35] LABS: ALBUMIN 3.3 g/dL (3.5-5.0); CALCIUM 8.2 mg/dL (8.4-10.2); MAGNESIUM 1.8 MG/DL (1.6-2.3)
[2017-06-20] MEDS: Sodium Chloride 0.9% 250 ML IV SCH ×2 (05:30→20:16)
[2017-06-20] MEDS ORDERED: Digoxin 500 mcg/2ml (0.5 mg/2ml) Inj IVP STA (05:32)
[2017-06-20] MEDS ORDERED: Digoxin 500 mcg/2ml (0.5 mg/2ml) Inj ONE (05:37)
[2017-06-20 05:38] VITALS: PULSE 145
[2017-06-20] MEDS ORDERED: Sodium Chloride 0.9% 250 ML IV SCH (05:45)
--- NOTE | 2017-06-20 07:55 | CP.PCM.PN ---
Subjective - Date & Time of Evaluation Date of Evaluation: 06/20/17 Time of Evaluation: 11:13 - Subjective Subjective: General Surgery: Dr Gu Pt S&E in ICU. Condition remains unchanged. Now being seen by neurology as well. CT shows anterior ptx with ? of CT within posterior parenchyma. Ventilating well. Objective - Vital Signs/Intake and Output Vital Signs (last 24 hours): Temp Pulse Resp BP Pulse Ox 98.7 F 76 16 119/37 L 100 06/20/17 06:00 06/20/17 06:51 06/20/17 06:51 06/20/17 06:51 06/20/17 06:51 Intake and Output: 06/20/17 06/20/17 06:59 18:59 Intake Total 1214 45 Output Total 0 Balance 1214 45 - Medications Medications: Current Medications Amiodarone HCl (Cordarone) 100 mg PO DAILY [facility] Last Admin: 06/19/17 08:21 Dose: 100 mg Ascorbic Acid (Vitamin C 500 Mg Tab) 1,000 mg PO DAILY [facility] Ergocalciferol (Drisdol 50,000 Intl Units Cap) 1 cap PO Q7D [facility] Last Admin: 06/19/17 17:34 Dose: 1 cap Heparin Sodium (Porcine) (Heparin) 5,000 units SC Q8 [facility] PRN Reason: Protocol Last Admin: 06/20/17 00:10 Dose: 5,000 units Metronidazole (Flagyl 500mg/100ml Ns) 100 mls @ 100 mls/hr IVPB Q8 [facility] PRN Reason: Protocol Last Admin: 06/20/17 00:09 Dose: 100 mls/hr Ciprofloxacin (Cipro 200mg/100ml D5w) 100 mls @ 100 mls/hr IVPB Q12 [facility] Last Admin: 06/19/17 21:22 Dose: 100 mls/hr Sodium Chloride (Sodium Chloride 0.9%) 250 mls @ 250 mls/hr IV .Q1H [facility] Last Admin: 06/20/17 05:30 Dose: 250 mls/hr Insulin Human Regular (Humulin R) 0 units SC Q6H [facility] PRN Reason: Protocol Last Admin: 06/20/17 06:17 Dose: 8 unit Pantoprazole Sodium (Protonix Inj) 40 mg IVP DAILY [facility] Last Admin: 06/19/17 08:22 Dose: 40 mg Timolol Maleate (Timoptic 0.5% Ophth Soln) 1 drop OD DAILY [facility] Last Admin: 06/19/17 08:23 Dose: 1 drop Vitamin B Complex/Vit C/Folic Acid (Nephro-Lori) 1 tab PO DAILY [facility] - Labs Labs: 06/20/17 04:12 06/20/17 04:12 APTT 16.1 Seconds (25.6-37.1) L D 06/17/17 05:16 - Constitutional Appears: Chronically Ill - Eye Exam Eye Exam: absent: Normal appearance - ENT Exam ENT Exam: Normal Exam - Respiratory Exam Respiratory Exam: absent: NORMAL BREATHING PATTERN - Cardiovascular Exam Cardiovascular Exam: REGULAR RHYTHM - GI/Abdominal Exam GI & Abdominal Exam: Soft. absent: Distended, Firm, Guarding, Rigid Assessment and Plan - Assessment and Plan (Free Text) Assessment: 86F with left ptx Plan: considering current condition and ? of brain status would not recommend further intervention as it would likely not improve pt outcome recommend conversation regarding hospice and DNR/DNI status with family if we are planning for aggressive measures, new chest tube would need to be inserted and the current one would be removed will cont to follow d/w Dr Riccardo Arshad, PGY3
[2017-06-20] MEDS: Multivitamin Vitamin B Complex (Nephro-Vite) Tab PO SCH (08:26)
--- NOTE | 2017-06-20 08:26 | PN ---
CRITICAL CARE PROGRESS NOTE DATE: 06/19/2017 LOCATION: The patient is in ICU, bed 435. TIME SPENT: 35 minutes. SUBJECTIVE: The patient is seen and evaluated at the bedside. An 86-year-old female with diabetes, hypertension, and end-stage renal disease admitted for nausea, pain in abdomen. CT showed nonspecific colitis on Cipro and Flagyl. On admission, I noted hyperkalemia, status post cardiopulmonary resuscitation. Post-resuscitation, left pneumothorax status post chest tube insertion. Left anterior pneumothorax still persist. On AC 16, tidal volume of 500, FiO2 45%, saturation 100, exhaled tidal volume 480, observed rate 15, saturation 100%. Intake output , positive balance 1013 to undergo dialysis today. OBJECTIVE: HEAD, EYE, EAR, NOSE, AND THROAT: Pupils are 2-3 mm poorly reactive. Corneal positive. Conjunctival positive. Neck supple. Deep suctioning, minimal grimace of the face. Involuntary opening of the eyes. CHEST: Bilateral breath sounds, clear to auscultation. HEART: Rhythm and regular. S1 and S2 normal. No audible murmur. ABDOMEN: Bowel sounds present. Soft. EXTREMITIES: Dependent edema. Bilateral transmetatarsal amputation. Dressing intact on the right ankle. CURRENT MEDICATIONS: Amiodarone 100 mg p.o. daily, ascorbic acid 1000 p.o. daily, Cipro 200 mg q.12, heparin 5000 units subcu q.8, Accu-Chek with a regular insulin coverage, Flagyl 500 q.8, Protonix 40 daily, Timoptic 0.5% ophthalmic solution one drop daily and Nephro-Lori one tablet daily. LABORATORY DATA: WBC 14.9, hemoglobin 8.2, hematocrit 24.8, and platelet count 128. ABG; pH of 7.51, pCO2 of 40, pO2 of 71 and saturation 95.1% on AC 16, 45%, 500. SMA-7; sodium 139, potassium 3.5, chloride 93, CO2 of 31, blood urea nitrogen 83, creatinine 7.1, random glucose 241, calcium 7.4, total bilirubin 0.6, AST 150, , ALT 288, alkaline phosphatase 164, total protein 5.8, and albumin 3. Hepatitis B surface antigen negative. Hepatitis B surface antibody negative. Hepatitis C antibody negative. CT of chest from this morning shows left-sided chest tube, extends posteriorly, which appears to extend into the posterior lung parenchyma. There is a large left-sided anterior pneumothorax, periods of atelectasis and/or consolidation and partially collapsed lung. Heart size is enlarged. Pulmonary trunk measures approximately 3.5 cm. Multiple mediastinal lymph nodes in the paratracheal region extending to the right of midline measuring 18 mm pleura as above, extensive subcutaneous emphysema left greater than right and anterior greater than posterior with extension superiorly. She is on Decadron and mannitol. Head CT; no acute parenchymal subarachnoid or extra-axilla hemorrhage. [id number] chronic white matter ischemic changes. IMPRESSION AND PLAN: 1. Neurologic: Possible anoxic encephalopathy, superimposed on metabolic encephalopathy. Status post cardiac arrest and status post pulseless electrical activity, remains in sinus rhythm now. Paroxysmal atrial fibrillation. 2. Pulmonary: Acute respiratory failure on ventilator. Minimal to no overdrive. Continue current vent setting. ABG shows adequate oxygenation and ventilation. 3. Cardiac: Status post cardiac arrest, resuscitation, history of hypertension, now controlled. 4. Gastrointestinal: Tolerating feeding. 5. Renal: Acute on chronic renal failure on hemodialysis. Scheduled for dialysis today. 6. Infectious disease: Suspected nonspecific colitis, on Cipro and Flagyl. David Joiner MD
--- NOTE | 2017-06-20 09:02 | CP.PCM.PN ---
Subjective - Date & Time of Evaluation Date of Evaluation: 06/20/17 Time of Evaluation: 08:30 - Subjective Subjective: ON MECHANICAL VENTILATIO Objective - Vital Signs/Intake and Output Vital Signs (last 24 hours): Temp Pulse Resp BP Pulse Ox 99.0 F 78 16 157/49 H 100 06/20/17 08:37 06/20/17 08:37 06/20/17 08:37 06/20/17 08:37 06/20/17 08:37 Intake and Output: 06/20/17 06/20/17 06:59 18:59 Intake Total 1214 45 Output Total 0 Balance 1214 45 - Medications Medications: Current Medications Amiodarone HCl (Cordarone) 100 mg PO DAILY [facility] Last Admin: 06/20/17 08:25 Dose: 100 mg Ascorbic Acid (Vitamin C 500 Mg Tab) 1,000 mg PO DAILY [facility] Last Admin: 06/20/17 08:26 Dose: 1,000 mg Ergocalciferol (Drisdol 50,000 Intl Units Cap) 1 cap PO Q7D [facility] Last Admin: 06/19/17 17:34 Dose: 1 cap Heparin Sodium (Porcine) (Heparin) 5,000 units SC Q8 [facility] PRN Reason: Protocol Last Admin: 06/20/17 08:27 Dose: 5,000 units Metronidazole (Flagyl 500mg/100ml Ns) 100 mls @ 100 mls/hr IVPB Q8 [facility] PRN Reason: Protocol Last Admin: 06/20/17 08:19 Dose: 100 mls/hr Ciprofloxacin (Cipro 200mg/100ml D5w) 100 mls @ 100 mls/hr IVPB Q12 [facility] Last Admin: 06/19/17 21:22 Dose: 100 mls/hr Sodium Chloride (Sodium Chloride 0.9%) 250 mls @ 250 mls/hr IV .Q1H [facility] Last Admin: 06/20/17 05:30 Dose: 250 mls/hr Insulin Human Regular (Humulin R) 0 units SC Q6H [facility] PRN Reason: Protocol Last Admin: 06/20/17 06:17 Dose: 8 unit Pantoprazole Sodium (Protonix Inj) 40 mg IVP DAILY [facility] Last Admin: 06/20/17 08:26 Dose: 40 mg Timolol Maleate (Timoptic 0.5% Oph Soln) 1 drop OD DAILY [facility] Last Admin: 06/20/17 08:25 Dose: 1 drop Vitamin B Complex/Vit C/Folic Acid (Nephro-Lori) 1 tab PO DAILY [facility] Last Admin: 06/20/17 08:26 Dose: 1 tab - Labs Labs: 06/20/17 04:12 06/20/17 04:12 APTT 16.1 Seconds (25.6-37.1) L D 06/17/17 05:16 - Respiratory Exam Respiratory Exam: Decreased Breath Sounds - Cardiovascular Exam Cardiovascular Exam: REGULAR RHYTHM, +S1, +S2 - Additional Findings Additional findings: 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, R 70'S PATIENT HAD WHAT APPEARS TO BE RAPID ATRIAL FIBRILLATION DURING THE NIGHT AND WAS GIVEN IV DIGOXIN AND WENT BACK TO SINUS RHYTHM BP ELEVATED AT 221/94 AT 4 AM AND PATIENT GIVEN IV HYDRALAZINE BP NOW 150/70 CT SCAN REPORT REVIEWED Assessment and Plan - Assessment and Plan (Free Text) Assessment: HISTORY OF ATRIAL FIBRILLATION-PRESENTLY IN SINUS RHYTHM HYPERTENSION DM HYPERKALEMIA IN ER WITH CARDIAC ARREST AND CPR-POSSIBLE ANOXIC ENCEPHALOPATHY PROGNOSIS GUARDRD Plan: CONTINUE MV, AMIODARONE, HEPARIN AND ANTIBIOTICS CONTINUE TO OBSERVE RHYTHM NEUROLOGY TO REASSESS AFTER REVIEWING REPEAT CT OF THE HEAD
[2017-06-20] MEDS: Ciprofloxacin 200mg/100ml D5W 100 ML IVPB SCH ×2 (09:14→21:02)
--- NOTE | 2017-06-20 11:04 | RAD ---
PROCEDURE: CHEST RADIOGRAPH, 1 VIEW HISTORY: left chest tube - vent COMPARISON: Chest radiograph dated 06/19/2017. FINDINGS: LUNGS: Clear. PLEURA: Stable large left pneumothorax. No pleural effusion. CARDIOVASCULAR: Atherosclerotic aortic calcifications. Cardiomediastinal silhouette within normal limits. OSSEOUS STRUCTURES: No significant abnormalities. VISUALIZED UPPER ABDOMEN: Normal. OTHER FINDINGS: Endotracheal and enteric tubes, unchanged. Left internal jugular access central venous catheter, unchanged. Left-sided large-bore chest tube, unchanged. Right upper extremity vascular stent redemonstrated. Diffuse subcutaneous emphysema. IMPRESSION: Stable large left pneumothorax. No significant interval change.
--- NOTE | 2017-06-20 12:34 | PN ---
DATE: 06/20/2017 SUBJECTIVE: The patient is seen and examined. Interim events noted. Consults noted and appreciated. Case discussed with registered nurse cardiovascular icu. Case also discussed with the patient's family at the bedside at length and poor prognosis is explained. The patient remains in Intensive Care Unit on ventilator and is not able to provide informative history or review of systems. PHYSICAL EXAMINATION: GENERAL: The patient is orally intubated on mechanical ventilation via endotracheal tube in the Intensive Care Unit. Tolerating current vent settings without any acute respiratory distress. VITAL SIGNS: Stable. HEART: S1 and S2, normal and regular. LUNGS: Good bilateral air exchange. The patient has subcutaneous emphysema. ABDOMEN: Soft and nontender. No organomegaly. No fluid. Bowel sounds are present and normal. . CENTRAL NERVOUS SYSTEM: Essentially unchanged. DIAGNOSTIC DATA: Available diagnostic data reviewed. Telemetry monitoring does not reveal significant arrhythmia. PLAN: As ordered. Case and plan discussed with the family at bedside. Case and plan also discussed with registered nurse cardiovascular icu. Plan also discussed with the patient. Kaushik Hooker MD
--- NOTE | 2017-06-20 17:16 | CP.CCUPN ---
CCU Subjective - Physician Review Events Since Last Encounter (Free Text): 06/20/17 17:00 unresponsive. CCU Objective - Vital Signs / Intake & Output Vital Signs (Last 4 hours): Vital Signs Temp Pulse Resp BP Pulse Ox 06/20/17 16:00 98.2 F 76 16 161/54 H 100 06/20/17 15:00 74 16 151/47 H 100 06/20/17 14:00 82 17 154/63 H 100 06/20/17 13:44 98.5 F 82 17 163/61 H 100 Intake and Output (Last 8hrs): Intake & Output 06/20/17 06/20/17 06/20/17 06:59 14:59 22:59 Intake Total 825 665 Output Total 0 Balance 825 665 Weight 171 lb Intake: IV 10 Intake, Piggyback 350 200 Tube Feeding 315 315 Free Water Flush 150 150 Output: Chest Tube Drainage 0 Left 0 Urine 0 Urethral ([place]) 0 Other: # Bowel Movements 1 - Physical Exam Head: Positive for: Atraumatic, Normocephalic Pupils: Positive for: Sluggish Conjunctiva: Positive for: Normal Mouth: Positive for: Moist Mucous Membranes Respiratory/Chest: Positive for: Clear to Auscultation, Good Air Exchange Cardiovascular: Positive for: Irregular Rhythm Abdomen: Negative for: Tenderness, Distention Neurological: Negative for: GCS=15 Psychiatric: Negative for: Alert - Medications Active Medications: Active Medications Generic Name Dose Route Start Last Admin Trade Name Freq PRN Reason Stop Dose Admin Amiodarone HCl 100 mg 06/16/17 09:00 06/20/17 08:25 Cordarone PO 100 mg DAILY MOHINDER Administration Ascorbic Acid 1,000 mg 06/20/17 09:00 06/20/17 08:26 Vitamin C 500 Mg Tab PO 1,000 mg DAILY MOHINDER Administration Ergocalciferol 1 cap 06/19/17 15:45 06/19/17 17:34 Drisdol 50,000 Intl Units Cap PO 1 cap Q7D MOHINDER Administration Heparin Sodium (Porcine) 5,000 units 06/16/17 01:00 06/20/17 16:11 Heparin SC 5,000 units Q8 MOHINDER Administration Protocol Metronidazole 100 mls @ 100 mls/hr 06/16/17 01:00 06/20/17 16:10 Flagyl 500mg/100ml Ns IVPB 100 mls/hr Q8 MOHINDER Administration Protocol Ciprofloxacin 100 mls @ 100 mls/hr 06/16/17 00:15 06/20/17 09:14 Cipro 200mg/100ml D5w IVPB 100 mls/hr Q12 MOHINDER Administration Sodium Chloride 250 mls @ 250 mls/hr 06/20/17 06:00 06/20/17 05:30 Sodium Chloride 0.9% IV 250 mls/hr .Q1H MOIHNDER Administration Insulin Human Regular 0 units 06/16/17 00:15 06/20/17 11:24 Humulin R SC 4 unit Q6H MOHINDER Administration Protocol Pantoprazole Sodium 40 mg 06/16/17 09:00 06/20/17 08:26 Protonix Inj IVP 40 mg DAILY MOHINDER Administration Timolol Maleate 1 drop 06/16/17 09:00 06/20/17 08:25 Timoptic 0.5% Ophth Soln OD 1 drop DAILY MOHINDER Administration Vitamin B Complex/Vit C/Folic Acid 1 tab 06/20/17 09:00 06/20/17 08:26 Nephro-Lori PO 1 tab DAILY MOHNIDER Administration - Patient Studies Lab Studies: Lab Studies 06/20/17 06/20/17 06/20/17 Range/Units 16:28 11:20 06:03 WBC (4.8-10.8) K/uL RBC (3.80-5.20) Mil/uL Hgb (12.0-16.0) g/dL Hct (34.0-47.0) % MCV (81.0-99.0) fl MCH (27.0-31.0) pg MCHC (33.0-37.0) g/dL RDW (11.5-14.5) % Plt Count (130-400) K/uL pCO2 (35-45) mm/Hg pO2 (80-100) mm/Hg HCO3 (21-28) mmol/L ABG pH (7.35-7.45) ABG Total CO2 (22-28) mmol/L ABG O2 Saturation (95-98) % ABG O2 Content (15-23) ML/dL ABG Base Excess (-2.0-3.0) mmol/L ABG Hemoglobin (11.7-17.4) g/dL ABG Carboxyhemoglobin (0.5-1.5) % POC ABG HHb (Measured) (0.0-5.0) % ABG Methemoglobin (0.0-3.0) % ABG O2 Capacity (16-24) mL/dL Mendez Test A-a O2 Difference mm/Hg Hgb O2 Saturation (95.0-98.0) % Vent Mode Mechanical Rate FiO2 % Tidal Volume PEEP Sodium (132-148) mmol/l Potassium (3.6-5.0) MMOL/L Chloride (98-107) mmol/L Carbon Dioxide (22-30) mmol/L Anion Gap (10-20) BUN (7-17) mg/dl Creatinine (0.7-1.2) mg/dl Est GFR ( Amer) Est GFR (Non-Af Amer) POC Glucose (mg/dL) 264 H 290 H 367 H (65-110) mg/dL Random Glucose (65-105) mg/dL Calcium (8.4-10.2) mg/dL Phosphorus (2.5-4.5) mg/dl Magnesium (1.6-2.3) MG/DL Total Bilirubin (0.2-1.3) mg/dl AST (14-36) U/L ALT (9-52) U/L Alkaline Phosphatase (38-126) U/L Total Protein (6.3-8.2) G/DL Albumin (3.5-5.0) g/dL Globulin (2.2-3.9) gm/dL Albumin/Globulin Ratio (1.0-2.1) 06/20/17 06/20/17 06/20/17 Range/Units 04:12 04:12 04:00 WBC 17.6 H (4.8-10.8) K/uL RBC 2.85 L (3.80-5.20) Mil/uL Hgb 8.8 L (12.0-16.0) g/dL Hct 26.8 L (34.0-47.0) % MCV 94.0 (81.0-99.0) fl MCH 30.7 (27.0-31.0) pg MCHC 32.7 L (33.0-37.0) g/dL RDW 17.5 H (11.5-14.5) % Plt Count 144 (130-400) K/uL pCO2 40 (35-45) mm/Hg pO2 152 H (80-100) mm/Hg HCO3 30.0 H (21-28) mmol/L ABG pH 7.49 H (7.35-7.45) ABG Total CO2 31.7 H (22-28) mmol/L ABG O2 Saturation 95.1 (95-98) % ABG O2 Content 13.1 L (15-23) ML/dL ABG Base Excess 6.6 H (-2.0-3.0) mmol/L ABG Hemoglobin 9.6 L (11.7-17.4) g/dL ABG Carboxyhemoglobin 0 L (0.5-1.5) % POC ABG HHb (Measured) 4.9 (0.0-5.0) % ABG Methemoglobin 0.6 (0.0-3.0) % ABG O2 Capacity 13.8 L (16-24) mL/dL Mendez Test Yes A-a O2 Difference 119.0 mm/Hg Hgb O2 Saturation 94.5 L (95.0-98.0) % Vent Mode A/c Mechanical Rate 16 FiO2 45.0 % Tidal Volume 500 PEEP 5 Sodium 135 (132-148) mmol/l Potassium 3.8 (3.6-5.0) MMOL/L Chloride 91 L (98-107) mmol/L Carbon Dioxide 32 H (22-30) mmol/L Anion Gap 16 (10-20) BUN 53 H (7-17) mg/dl Creatinine 4.8 H (0.7-1.2) mg/dl Est GFR ( Amer) 10 Est GFR (Non-Af Amer) 9 POC Glucose (mg/dL) (65-110) mg/dL Random Glucose 359 H (65-105) mg/dL Calcium 8.2 L (8.4-10.2) mg/dL Phosphorus 3.1 (2.5-4.5) mg/dl Magnesium 1.8 (1.6-2.3) MG/DL Total Bilirubin 0.6 (0.2-1.3) mg/dl AST 129 H (14-36) U/L ALT 316 H (9-52) U/L Alkaline Phosphatase 147 H (38-126) U/L Total Protein 6.5 (6.3-8.2) G/DL Albumin 3.3 L (3.5-5.0) g/dL Globulin 3.2 (2.2-3.9) gm/dL Albumin/Globulin Ratio 1.0 (1.0-2.1) 06/19/17 Range/Units 21:54 WBC (4.8-10.8) K/uL RBC (3.80-5.20) Mil/uL Hgb (12.0-16.0) g/dL Hct (34.0-47.0) % MCV (81.0-99.0) fl MCH (27.0-31.0) pg MCHC (33.0-37.0) g/dL RDW (11.5-14.5) % Plt Count (130-400) K/uL pCO2 (35-45) mm/Hg pO2 (80-100) mm/Hg HCO3 (21-28) mmol/L ABG pH (7.35-7.45) ABG Total CO2 (22-28) mmol/L ABG O2 Saturation (95-98) % ABG O2 Content (15-23) ML/dL ABG Base Excess (-2.0-3.0) mmol/L ABG Hemoglobin (11.7-17.4) g/dL ABG Carboxyhemoglobin (0.5-1.5) % POC ABG HHb (Measured) (0.0-5.0) % ABG Methemoglobin (0.0-3.0) % ABG O2 Capacity (16-24) mL/dL Mendez Test A-a O2 Difference mm/Hg Hgb O2 Saturation (95.0-98.0) % Vent Mode Mechanical Rate FiO2 % Tidal Volume PEEP Sodium (132-148) mmol/l Potassium (3.6-5.0) MMOL/L Chloride (98-107) mmol/L Carbon Dioxide (22-30) mmol/L Anion Gap (10-20) BUN (7-17) mg/dl Creatinine (0.7-1.2) mg/dl Est GFR ( Amer) Est GFR (Non-Af Amer) POC Glucose (mg/dL) 227 H (65-110) mg/dL Random Glucose (65-105) mg/dL Calcium (8.4-10.2) mg/dL Phosphorus (2.5-4.5) mg/dl Magnesium (1.6-2.3) MG/DL Total Bilirubin (0.2-1.3) mg/dl AST (14-36) U/L ALT (9-52) U/L Alkaline Phosphatase (38-126) U/L Total Protein (6.3-8.2) G/DL Albumin (3.5-5.0) g/dL Globulin (2.2-3.9) gm/dL Albumin/Globulin Ratio (1.0-2.1) Laboratory Results - last 24 hr 06/19/17 06/20/17 06/20/17 21:54 04:00 04:12 WBC 17.6 H RBC 2.85 L Hgb 8.8 L Hct 26.8 L MCV 94.0 MCH 30.7 MCHC 32.7 L RDW 17.5 H Plt Count 144 pCO2 40 pO2 152 H HCO3 30.0 H ABG pH 7.49 H ABG Total CO2 31.7 H ABG O2 Saturation 95.1 ABG O2 Content 13.1 L ABG Base Excess 6.6 H ABG Hemoglobin 9.6 L ABG Carboxyhemoglobin 0 L POC ABG HHb (Measured) 4.9 ABG Methemoglobin 0.6 ABG O2 Capacity 13.8 L Mendez Test Yes A-a O2 Difference 119.0 Hgb O2 Saturation 94.5 L Vent Mode A/c Mechanical Rate 16 FiO2 45.0 Tidal Volume 500 PEEP 5 Sodium Potassium Chloride Carbon Dioxide Anion Gap BUN Creatinine Est GFR ( Amer) Est GFR (Non-Af Amer) POC Glucose (mg/dL) 227 H Random Glucose Calcium Phosphorus Magnesium Total Bilirubin AST ALT Alkaline Phosphatase Total Protein Albumin Globulin Albumin/Globulin Ratio 06/20/17 06/20/17 06/20/17 04:12 06:03 11:20 WBC RBC Hgb Hct MCV MCH MCHC RDW Plt Count pCO2 pO2 HCO3 ABG pH ABG Total CO2 ABG O2 Saturation ABG O2 Content ABG Base Excess ABG Hemoglobin ABG Carboxyhemoglobin POC ABG HHb (Measured) ABG Methemoglobin ABG O2 Capacity Mendez Test A-a O2 Difference Hgb O2 Saturation Vent Mode Mechanical Rate FiO2 Tidal Volume PEEP Sodium 135 Potassium 3.8 Chloride 91 L Carbon Dioxide 32 H Anion Gap 16 BUN 53 H Creatinine 4.8 H Est GFR ( Amer) 10 Est GFR (Non-Af Amer) 9 POC Glucose (mg/dL) 367 H 290 H Random Glucose 359 H Calcium 8.2 L Phosphorus 3.1 Magnesium 1.8 Total Bilirubin 0.6 AST 129 H ALT 316 H Alkaline Phosphatase 147 H Total Protein 6.5 Albumin 3.3 L Globulin 3.2 Albumin/Globulin Ratio 1.0 06/20/17 16:28 WBC RBC Hgb Hct MCV MCH MCHC RDW Plt Count pCO2 pO2 HCO3 ABG pH ABG Total CO2 ABG O2 Saturation ABG O2 Content ABG Base Excess ABG Hemoglobin ABG Carboxyhemoglobin POC ABG HHb (Measured) ABG Methemoglobin ABG O2 Capacity Mendez Test A-a O2 Difference Hgb O2 Saturation Vent Mode Mechanical Rate FiO2 Tidal Volume PEEP Sodium Potassium Chloride Carbon Dioxide Anion Gap BUN Creatinine Est GFR ( Amer) Est GFR (Non-Af Amer) POC Glucose (mg/dL) 264 H Random Glucose Calcium Phosphorus Magnesium Total Bilirubin AST ALT Alkaline Phosphatase Total Protein Albumin Globulin Albumin/Globulin Ratio Fingerstick Blood Sugar Results: 290 Review of Systems - Review of Systems Systems not reviewed;Unavailable: Altered Mental Status Critical Care Progress Note - Nutrition Nutrition: Nutrition Category Date Time Status NPO Diet [DIET] Diets 06/15/17 Breakfast Active Assessment/Plan (1) Anoxic brain injury Assessment and plan: Had a discussion with the family. They want to withdraw care tomorrow morning. Patient is now DNR/DNI. Terminal extubation with comfort care tomorrow. Critical Care time 35 minutes Current Visit: Yes Status: Acute Priority: High
[2017-06-21] MEDS: metroNIDAZOLE 500mg/100ml NS 100 ML IVPB SCH ×4 (00:23→17:25)
[2017-06-21] MEDS: Insulin Regular 100 units/ml SC SCH ×3 (00:24→17:19)
[2017-06-21 04:55] LABS: ABG ALLEN TEST YES; ARTERIAL BLOOD GAS HCO3 29.1 mmol/L (21-28); ARTERIAL BLOOD GAS HEMOGLOBIN 8.2 g/dL (11.7-17.4); ARTERIAL BLOOD GAS O2 CAPACITY 11.8 mL/dL (16-24); ARTERIAL BLOOD GAS O2 CONTENT 11.3 ML/dL (15-23); ARTERIAL BLOOD GAS O2 SAT 96.1 % (95-98); ARTERIAL BLOOD GAS PCO2 36 mm/Hg (35-45); ARTERIAL BLOOD GAS PH 7.51 (7.35-7.45); ARTERIAL BLOOD GAS PO2 128 mm/Hg (80-100); ARTERIAL BLOOD GAS TCO2 29.8 mmol/L (22-28)
[2017-06-21 05:25] LABS: HEMOGLOBIN 8.3 g/dL (12.0-16.0); MEAN CELL VOLUME 95.2 fl (81.0-99.0); MEAN CORPUSCULAR HEMOGLOBIN 30.1 pg (27.0-31.0); MEAN CORPUSCULAR HGB CONC 31.6 g/dL (33.0-37.0); RBC 2.77 Mil/uL (3.80-5.20); RED CELL DISTRIBUTION WIDTH 17.6 % (11.5-14.5); WHITE BLOOD COUNT 19.5 K/uL (4.8-10.8)
[2017-06-21 06:08] LABS: ALBUMIN 3.1 g/dL (3.5-5.0); CALCIUM 8.6 mg/dL (8.4-10.2)
--- NOTE | 2017-06-21 09:14 | CP.PCM.PN ---
<Chhaya Winchester - Last Filed: 06/21/17 09:29> Subjective - Date & Time of Evaluation Date of Evaluation: 06/21/17 Time of Evaluation: 09:12 - Subjective Subjective: 86 YO F seen at bedside and remains to be on mechanical ventilation. Opens eyes to verbal and tactile stimuli however. Does not respond to much more then that. Family has agreed to DNR/DNI. Family went and saw patient PMD Dr. Hooker. Possible withdrawal of care. Will speak to family this morning. Objective - Vital Signs/Intake and Output Vital Signs (last 24 hours): Temp Pulse Resp BP Pulse Ox 99.7 F H 80 16 169/54 H 100 06/21/17 08:52 06/21/17 08:52 06/21/17 08:52 06/21/17 08:52 06/21/17 08:52 Intake and Output: 06/21/17 06/21/17 06:59 18:59 Intake Total 1021 Output Total 0 Balance 1021 - Medications Medications: Current Medications Amiodarone HCl (Cordarone) 100 mg PO DAILY [facility] Last Admin: 06/20/17 08:25 Dose: 100 mg Ascorbic Acid (Vitamin C 500 Mg Tab) 1,000 mg PO DAILY [facility] Last Admin: 06/20/17 08:26 Dose: 1,000 mg Ergocalciferol (Drisdol 50,000 Intl Units Cap) 1 cap PO Q7D [facility] Last Admin: 06/19/17 17:34 Dose: 1 cap Metronidazole (Flagyl 500mg/100ml Ns) 100 mls @ 100 mls/hr IVPB Q8 MOHINDER PRN Reason: Protocol Last Admin: 06/21/17 00:23 Dose: 100 mls/hr Ciprofloxacin (Cipro 200mg/100ml D5w) 100 mls @ 100 mls/hr IVPB Q12 [facility] Last Admin: 06/20/17 21:02 Dose: 100 mls/hr Insulin Human Regular (Humulin R) 0 units SC Q6H MOHINDER PRN Reason: Protocol Last Admin: 06/21/17 06:44 Dose: 8 unit Pantoprazole Sodium (Protonix Inj) 40 mg IVP DAILY [facility] Last Admin: 06/20/17 08:26 Dose: 40 mg Timolol [facility]ate [facility] 1 drop OD DAILY MOH[facility]ER Last Admin: 06/20/17 08:25 Dose: 1 drop Vitamin B Complex/Vit C/Folic Acid (Nephro-Lori) 1 tab PO DAILY MOHINDER Last Admin: 06/20/17 08:26 Dose: 1 tab - Labs Labs: 06/21/17 04:20 06/21/17 04:20 APTT 16.1 Seconds (25.6-37.1) L D 06/17/17 05:16 - Head Exam Head Exam: ATRAUMATIC - Eye Exam Additional comments: pupils : sluggish - ENT Exam ENT Exam: Mucous Membranes Moist - Respiratory Exam Respiratory Exam: Clear to Ausculation Bilateral. absent: Rhonchi, Wheezes - Cardiovascular Exam Cardiovascular Exam: Irregular Rhythm - Neurological Exam Neurological Exam: absent: Alert, Oriented x3 Additional comments: opens eyes to verbal and tacile stimuli. Decerebrate posturing Assessment and Plan - Assessment and Plan (Free Text) Assessment: - Patient remains on mechanical ventilation - DNR/DNI - Possible withdrawal of care and terminal extubation today, will speak with family. - Poor prognosis <Kaushik Hooker - Last Filed: 06/23/17 16:35> Objective - Vital Signs/Intake and Output Vital Signs (last 24 hours): Temp Pulse Resp BP Pulse Ox 99.2 F 71 12 133/39 L 83 L 06/22/17 08:00 06/22/17 08:00 06/22/17 08:00 06/22/17 08:00 06/22/17 08:00 - Labs Labs: 06/21/17 04:20 06/21/17 04:20 APTT 16.1 Seconds (25.6-37.1) L D 06/17/17 05:16 Assessment and Plan - Assessment and Plan (Free Text) Assessment: Patient was personally seen and examined by me in rounds with residents. Available labs and diagnostic data reviewed. Case, Patient's condition and management plan discussed with residents in rounds. Agree with resident's documentation. Plan: As ordered. Kaushik Hooker MD
[2017-06-21] MEDS: Ciprofloxacin 200mg/100ml D5W 100 ML IVPB SCH ×2 (09:57→22:37)
[2017-06-21] MEDS: Multivitamin Vitamin B Complex (Nephro-Vite) Tab PO SCH (09:59)
--- NOTE | 2017-06-21 10:21 | CP.PCM.PN ---
Subjective - Date & Time of Evaluation Date of Evaluation: 06/21/17 Time of Evaluation: 10:15 - Subjective Subjective: Ms. Hamilton was seen and examined at the bedside in ICU. She remains on mechanical ventilator on PRVC mode. She is not responding to pain stimuli, but has gag reflex. CT scan of the head (06/19/2017) showed no intracranial hemorrhage. Mild to moderate chronic white matter ischemic changes. 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 Moderate generalized volume loss. The patient is DNR/ DNI. There was fine tremors noted of upper body with tensed facial expression noted, Ativan 1mg IVP given early this morning. Objective - Vital Signs/Intake and Output Vital Signs (last 24 hours): Temp Pulse Resp BP Pulse Ox 99.7 F H 88 16 160/50 H 100 06/21/17 08:52 06/21/17 09:59 06/21/17 08:52 06/21/17 09:59 06/21/17 08:52 Intake and Output: 06/21/17 06/21/17 06:59 18:59 Intake Total 1021 Output Total 0 Balance 1021 - Medications Medications: Current Medications Amiodarone HCl (Cordarone) 100 mg PO DAILY [facility] Last Admin: 06/21/17 09:59 Dose: 100 mg Ascorbic Acid (Vitamin C 500 Mg Tab) 1,000 mg PO DAILY [facility] Last Admin: 06/21/17 09:58 Dose: 1,000 mg Ergocalciferol (Drisdol 50,000 Intl Units Cap) 1 cap PO Q7D [facility] Last Admin: 06/19/17 17:34 Dose: 1 cap Metronidazole (Flagyl 500mg/100ml Ns) 100 mls @ 100 mls/hr IVPB Q8 MOHINDER PRN Reason: Protocol Last Admin: 06/21/17 09:58 Dose: 100 mls/hr Ciprofloxacin (Cipro 200mg/100ml D5w) 100 mls @ 100 mls/hr IVPB Q12 [facility] Last Admin: 06/21/17 09:57 Dose: 100 mls/hr Insulin Human Regular (Humulin R) 0 units SC Q6H MOHINDER PRN Reason: Protocol Last Admin: 06/21/17 06:44 Dose: 8 unit Pantoprazole Sodium (Protonix Inj) 40 mg IVP DAILY [facility] Last Admin: 06/21/17 09:59 Dose: 40 mg Timolol Maleate (Timoptic 0.5% Ophth Soln) 1 drop OD DAILY MOHINDER Last Admin: 06/21/17 10:00 Dose: 1 drop Vitamin B Complex/Vit C/Folic Acid (Nephro-Lori) 1 tab PO DAILY MOHINDER Last Admin: 06/21/17 09:59 Dose: 1 tab - Labs Labs: 06/21/17 04:20 06/21/17 04:20 APTT 16.1 Seconds (25.6-37.1) L D 06/17/17 05:16 - Constitutional Appears: No Acute Distress - Eye Exam Pupil Exam: Fixed - Neurological Exam Neuro motor strength exam: Left Upper Extremity: 0, Right Upper Extremity: 0, Left Lower Extremity: 0, Right Lower Extremity: 0 Additional comments: GCS-3T. Assessment and Plan (1) Anoxic brain injury Assessment & Plan: Case discussed with Dr. Arcos, continue all current medical regimen. Pending EEG result. Status: Acute
--- NOTE | 2017-06-21 10:37 | CP.PCM.PN ---
Subjective - Date & Time of Evaluation Date of Evaluation: 06/21/17 Time of Evaluation: 08:30 - Subjective Subjective: PT ON MV Objective - Vital Signs/Intake and Output Vital Signs (last 24 hours): Temp Pulse Resp BP Pulse Ox 99.7 F H 88 16 160/50 H 100 06/21/17 08:52 06/21/17 09:59 06/21/17 08:52 06/21/17 09:59 06/21/17 08:52 Intake and Output: 06/21/17 06/21/17 06:59 18:59 Intake Total 1021 Output Total 0 Balance 1021 - Medications Medications: Current Medications Amiodarone HCl (Cordarone) 100 mg PO DAILY [facility] Last Admin: 06/21/17 09:59 Dose: 100 mg Ascorbic Acid (Vitamin C 500 Mg Tab) 1,000 mg PO DAILY [facility] Last Admin: 06/21/17 09:58 Dose: 1,000 mg Ergocalciferol (Drisdol 50,000 Intl Units Cap) 1 cap PO Q7D [facility] Last Admin: 06/19/17 17:34 Dose: 1 cap Metronidazole (Flagyl 500mg/100ml Ns) 100 mls @ 100 mls/hr IVPB Q8 MOHINDER PRN Reason: Protocol Last Admin: 06/21/17 09:58 Dose: 100 mls/hr Ciprofloxacin (Cipro 200mg/100ml D5w) 100 mls @ 100 mls/hr IVPB Q12 [facility] Last Admin: 06/21/17 09:57 Dose: 100 mls/hr Insulin Human Regular (Humulin R) 0 units SC Q6H MOHINDER PRN Reason: Protocol Last Admin: 06/21/17 06:44 Dose: 8 unit Pantoprazole Sodium (Protonix Inj) 40 mg IVP DAILY [facility] Last Admin: 06/21/17 09:59 Dose: 40 mg Timolol Maleate (Timoptic 0.5% Ophth Soln) 1 drop OD DAILY [facility] Last Admin: 06/21/17 10:00 Dose: 1 drop Vitamin B Complex/Vit C/Folic Acid (Nephro-Lori) 1 tab PO DAILY [facility] Last Admin: 06/21/17 09:59 Dose: 1 tab - Labs Labs: 06/21/17 04:20 06/21/17 04:20 APTT 16.1 Seconds (25.6-37.1) L D 06/17/17 05:16 - Respiratory Exam Respiratory Exam: Decreased Breath Sounds - Cardiovascular Exam Cardiovascular Exam: REGULAR RHYTHM, +S1, +S2 - Additional Findings Additional findings: [employer] MA[employer] NSR NEUROLOGY NOTE AND CT SCAN REPORT REVIEWED Assessment and Plan - Assessment and Plan (Free Text) Assessment: S/P HYPERKALEMIA WITH 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
[2017-06-21] MEDS ORDERED: Morphine 100 MG in Sodium Chloride 0.9% 100 ML IVPB SCH (12:15)
--- NOTE | 2017-06-21 14:56 | CP.CCUPN ---
CCU Subjective - Physician Review Subjective (Free Text): Discussed patient's clinical status with granddaughter Ledy: patient no longer triggering the ventilator and now is completely unresponsive to deep pain stimulus. She was observed to spontaneous;y open eyes yesterday, but did not follow any command. A period of decerebrate posturing was noted that occurred over a several minute period in the afternoon. There is no longer any abnormal posturing seen today. At approx 12Noon, terminal extubation performed at the request of all immediate family members. patient placed on 8 LPM Nasal cannula. ROS: No other pertinent negs or positives on 10+ system review obtainable from intubated and comatose patient. PMSFH: All other Nursing and physician documentation reviewed to date; no new pertinent info noted relevant to current medical problems. 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 ( my interp). IMPRESSION / MAJOR PROBLEMS NOW: 1. s/p Cardiac Arrest manifest by PEA 2 Hyperkalemia, r/o AMI 2. Acute Resp failure 2 #1 3. Post resuscitation Anoxic Encephalopathy 4. Left PTX 2 TLC placement versus CPR 5. h/o ESRD on HD PLAN: 1. Terminal extubation and Morphine drip titrated to patient comfort. 2. Further hemodialysis refused by family for today. 3. [place] [facility] notified. CCU Objective - Vital Signs / Intake & Output Vital Signs (Last 4 hours): Vital Signs Temp Pulse Resp BP Pulse Ox 06/21/17 12:00 99.6 F 84 15 164/56 H 100 Intake and Output (Last 8hrs): Intake & Output 06/20/17 06/21/17 06/21/17 22:59 06:59 14:59 Intake Total 817 624 Output Total 0 Balance 817 624 Weight 172 lb 6.4 oz Intake: IV 12 14 Intake, Piggyback 200 100 Tube Feeding 305 360 Free Water Flush 300 150 Output: Urine 0 Urine, Voided 0 Other: # Bowel Movements 1 1 - Physical Exam Head: Positive for: Atraumatic, Normocephalic Pupils: Positive for: Sluggish Extroacular Muscles: Positive for: EOMI Conjunctiva: Positive for: Normal Mouth: Positive for: Moist Mucous Membranes Respiratory/Chest: Positive for: Clear to Auscultation, Good Air Exchange Cardiovascular: Positive for: Irregular Rhythm Abdomen: Negative for: Tenderness, Distention Neurological: Negative for: GCS=15 Psychiatric: Negative for: Alert - Medications Active Medications: Active Medications Generic Name Dose Route Start Last Admin Trade Name Annabella PRN Reason Stop Dose Admin Amiodarone HCl 100 mg 06/16/17 09:00 06/21/17 09:59 Cordarone PO 100 mg DAILY MOHINDER Administration Ascorbic Acid 1,000 mg 06/20/17 09:00 06/21/17 09:58 Vitamin C 500 Mg Tab PO 1,000 mg DAILY MOHINDER Administration Ergocalciferol 1 cap 06/19/17 15:45 06/19/17 17:34 Drisdol 50,000 Intl Units Cap PO 1 cap Q7D MOHINDER Administration Metronidazole 100 mls @ 100 mls/hr 06/16/17 01:00 06/21/17 09:58 Flagyl 500mg/100ml Ns IVPB 100 mls/hr Q8 MOHINDER Administration Protocol Ciprofloxacin 100 mls @ 100 mls/hr 06/16/17 00:15 06/21/17 09:57 Cipro 200mg/100ml D5w IVPB 100 mls/hr Q12 MOHINDER Administration Morphine Sulfate 100 mg/ 104 mls @ 3.12 mls/hr 06/21/17 12:15 06/21/17 12:29 Sodium Chloride IVPB 3.12 mls/hr .Q24H MOHINDER Administration Protocol 3 MG/HR Insulin Human Regular 0 units 06/16/17 00:15 06/21/17 06:44 Humulin R SC 8 unit Q6H MOHINDER Administration Protocol Pantoprazole Sodium 40 mg 06/16/17 09:00 06/21/17 09:59 Protonix Inj IVP 40 mg DAILY MOHINDER Administration Timolol Maleate 1 drop 06/16/17 09:00 06/21/17 10:00 Timoptic 0.5% Ophth Soln OD 1 drop DAILY MOHINDER Administration Vitamin B Complex/Vit C/Folic Acid 1 tab 06/20/17 09:00 06/21/17 09:59 Nephro-Lori PO 1 tab DAILY MOHINDER Administration - Patient Studies Lab Studies: Lab Studies 06/21/17 06/21/17 06/21/17 Range/Units 11:39 04:20 04:20 WBC 19.5 H (4.8-10.8) K/uL RBC 2.77 L (3.80-5.20) Mil/uL Hgb 8.3 L (12.0-16.0) g/dL Hct 26.3 L (34.0-47.0) % MCV 95.2 (81.0-99.0) fl MCH 30.1 (27.0-31.0) pg MCHC 31.6 L (33.0-37.0) g/dL RDW 17.6 H (11.5-14.5) % Plt Count 150 (130-400) K/uL pCO2 (35-45) mm/Hg pO2 (80-100) mm/Hg HCO3 (21-28) mmol/L ABG pH (7.35-7.45) ABG Total CO2 (22-28) mmol/L ABG O2 Saturation (95-98) % ABG O2 Content (15-23) ML/dL ABG Base Excess (-2.0-3.0) mmol/L ABG Hemoglobin (11.7-17.4) g/dL ABG Carboxyhemoglobin (0.5-1.5) % POC ABG HHb (Measured) (0.0-5.0) % ABG Methemoglobin (0.0-3.0) % ABG O2 Capacity (16-24) mL/dL Mendez Test A-a O2 Difference mm/Hg Hgb O2 Saturation (95.0-98.0) % Vent Mode Mechanical Rate FiO2 % Tidal Volume Sodium 137 (132-148) mmol/l Potassium 4.1 (3.6-5.0) MMOL/L Chloride 92 L (98-107) mmol/L Carbon Dioxide 28 (22-30) mmol/L Anion Gap 21 H (10-20) BUN 88 H (7-17) mg/dl Creatinine 6.2 H (0.7-1.2) mg/dl Est GFR ( Amer) 8 Est GFR (Non-Af Amer) 6 POC Glucose (mg/dL) 288 H (65-110) mg/dL Random Glucose 373 H (65-105) mg/dL Calcium 8.6 (8.4-10.2) mg/dL Total Bilirubin 0.7 (0.2-1.3) mg/dl AST 59 H D (14-36) U/L ALT 212 H D (9-52) U/L Alkaline Phosphatase 137 H (38-126) U/L Total Protein 6.4 (6.3-8.2) G/DL Albumin 3.1 L (3.5-5.0) g/dL Globulin 3.3 (2.2-3.9) gm/dL Albumin/Globulin Ratio 1.0 (1.0-2.1) 06/21/17 06/21/17 06/21/17 Range/Units 04:12 04:07 04:04 WBC (4.8-10.8) K/uL RBC (3.80-5.20) Mil/uL Hgb (12.0-16.0) g/dL Hct (34.0-47.0) % MCV (81.0-99.0) fl MCH (27.0-31.0) pg MCHC (33.0-37.0) g/dL RDW (11.5-14.5) % Plt Count (130-400) K/uL pCO2 36 (35-45) mm/Hg pO2 128 H (80-100) mm/Hg HCO3 29.1 H (21-28) mmol/L ABG pH 7.51 H (7.35-7.45) ABG Total CO2 29.8 H (22-28) mmol/L ABG O2 Saturation 96.1 (95-98) % ABG O2 Content 11.3 L (15-23) ML/dL ABG Base Excess 5.3 H (-2.0-3.0) mmol/L ABG Hemoglobin 8.2 L (11.7-17.4) g/dL ABG Carboxyhemoglobin 0 L (0.5-1.5) % POC ABG HHb (Measured) 3.9 (0.0-5.0) % ABG Methemoglobin 0.4 (0.0-3.0) % ABG O2 Capacity 11.8 L (16-24) mL/dL Mendez Test Yes A-a O2 Difference 148.0 mm/Hg Hgb O2 Saturation 95.7 (95.0-98.0) % Vent Mode A/c Mechanical Rate 16 FiO2 45.0 % Tidal Volume 500 Sodium (132-148) mmol/l Potassium (3.6-5.0) MMOL/L Chloride (98-107) mmol/L Carbon Dioxide (22-30) mmol/L Anion Gap (10-20) BUN (7-17) mg/dl Creatinine (0.7-1.2) mg/dl Est GFR ( Amer) Est GFR (Non-Af Amer) POC Glucose (mg/dL) 332 H 366 H (65-110) mg/dL Random Glucose (65-105) mg/dL Calcium (8.4-10.2) mg/dL Total Bilirubin (0.2-1.3) mg/dl AST (14-36) U/L ALT (9-52) U/L Alkaline Phosphatase (38-126) U/L Total Protein (6.3-8.2) G/DL Albumin (3.5-5.0) g/dL Globulin (2.2-3.9) gm/dL Albumin/Globulin Ratio (1.0-2.1) 06/20/17 06/20/17 Range/Units 21:34 16:28 WBC (4.8-10.8) K/uL RBC (3.80-5.20) Mil/uL Hgb (12.0-16.0) g/dL Hct (34.0-47.0) % MCV (81.0-99.0) fl MCH (27.0-31.0) pg MCHC (33.0-37.0) g/dL RDW (11.5-14.5) % Plt Count (130-400) K/uL pCO2 (35-45) mm/Hg pO2 (80-100) mm/Hg HCO3 (21-28) mmol/L ABG pH (7.35-7.45) ABG Total CO2 (22-28) mmol/L ABG O2 Saturation (95-98) % ABG O2 Content (15-23) ML/dL ABG Base Excess (-2.0-3.0) mmol/L ABG Hemoglobin (11.7-17.4) g/dL ABG Carboxyhemoglobin (0.5-1.5) % POC ABG HHb (Measured) (0.0-5.0) % ABG Methemoglobin (0.0-3.0) % ABG O2 Capacity (16-24) mL/dL Mendez Test A-a O2 Difference mm/Hg Hgb O2 Saturation (95.0-98.0) % Vent Mode Mechanical Rate FiO2 % Tidal Volume Sodium (132-148) mmol/l Potassium (3.6-5.0) MMOL/L Chloride (98-107) mmol/L Carbon Dioxide (22-30) mmol/L Anion Gap (10-20) BUN (7-17) mg/dl Creatinine (0.7-1.2) mg/dl Est GFR ( Amer) Est GFR (Non-Af Amer) POC Glucose (mg/dL) 290 H 264 H (65-110) mg/dL Random Glucose (65-105) mg/dL Calcium (8.4-10.2) mg/dL Total Bilirubin (0.2-1.3) mg/dl AST (14-36) U/L ALT (9-52) U/L Alkaline Phosphatase (38-126) U/L Total Protein (6.3-8.2) G/DL Albumin (3.5-5.0) g/dL Globulin (2.2-3.9) gm/dL Albumin/Globulin Ratio (1.0-2.1) Laboratory Results - last 24 hr 06/20/17 06/20/17 06/21/17 16:28 21:34 04:04 WBC RBC Hgb Hct MCV MCH MCHC RDW Plt Count pCO2 pO2 HCO3 ABG pH ABG Total CO2 ABG O2 Saturation ABG O2 Content ABG Base Excess ABG Hemoglobin ABG Carboxyhemoglobin POC ABG HHb (Measured) ABG Methemoglobin ABG O2 Capacity Mendez Test A-a O2 Difference Hgb O2 Saturation Vent Mode Mechanical Rate FiO2 Tidal Volume Sodium Potassium Chloride Carbon Dioxide Anion Gap BUN Creatinine Est GFR ( Amer) Est GFR (Non-Af Amer) POC Glucose (mg/dL) 264 H 290 H 366 H Random Glucose Calcium Total Bilirubin AST ALT Alkaline Phosphatase Total Protein Albumin Globulin Albumin/Globulin Ratio 06/21/17 06/21/17 06/21/17 04:07 04:12 04:20 WBC 19.5 H RBC 2.77 L Hgb 8.3 L Hct 26.3 L MCV 95.2 MCH 30.1 MCHC 31.6 L RDW 17.6 H Plt Count 150 pCO2 36 pO2 128 H HCO3 29.1 H ABG pH 7.51 H ABG Total CO2 29.8 H ABG O2 Saturation 96.1 ABG O2 Content 11.3 L ABG Base Excess 5.3 H ABG Hemoglobin 8.2 L ABG Carboxyhemoglobin 0 L POC ABG HHb (Measured) 3.9 ABG Methemoglobin 0.4 ABG O2 Capacity 11.8 L Mendez Test Yes A-a O2 Difference 148.0 Hgb O2 Saturation 95.7 Vent Mode A/c Mechanical Rate 16 FiO2 45.0 Tidal Volume 500 Sodium Potassium Chloride Carbon Dioxide Anion Gap BUN Creatinine Est GFR ( Amer) Est GFR (Non-Af Amer) POC Glucose (mg/dL) 332 H Random Glucose Calcium Total Bilirubin AST ALT Alkaline Phosphatase Total Protein Albumin Globulin Albumin/Globulin Ratio 06/21/17 06/21/17 04:20 11:39 WBC RBC Hgb Hct MCV MCH MCHC RDW Plt Count pCO2 pO2 HCO3 ABG pH ABG Total CO2 ABG O2 Saturation ABG O2 Content ABG Base Excess ABG Hemoglobin ABG Carboxyhemoglobin POC ABG HHb (Measured) ABG Methemoglobin ABG O2 Capacity Mendez Test A-a O2 Difference Hgb O2 Saturation Vent Mode Mechanical Rate FiO2 Tidal Volume Sodium 137 Potassium 4.1 Chloride 92 L Carbon Dioxide 28 Anion Gap 21 H BUN 88 H Creatinine 6.2 H Est GFR ( Amer) 8 Est GFR (Non-Af Amer) 6 POC Glucose (mg/dL) 288 H Random Glucose 373 H Calcium 8.6 Total Bilirubin 0.7 AST 59 H D ALT 212 H D Alkaline Phosphatase 137 H Total Protein 6.4 Albumin 3.1 L Globulin 3.3 Albumin/Globulin Ratio 1.0 Radiology Interpretations (Free Text): as above Fingerstick Blood Sugar Results: 288 Review of Systems - Review of Systems Systems not reviewed;Unavailable: Intubated Critical Care Progress Note - Nutrition Nutrition: Nutrition Category Date Time Status NPO Diet [DIET] Diets 06/15/17 Breakfast Active
--- NOTE | 2017-06-21 15:04 | RAD ---
PROCEDURE: CHEST RADIOGRAPH, 1 VIEW HISTORY: left chest tube - vent COMPARISON: Multiple serial examinations preceding the most recent study: June 20, 2017. FINDINGS: LUNGS: Stable infiltrates bilaterally. Right upper lobe changes are accentuated by portable technique and rotation PLEURA: Satisfactory position of chest tube in the left pleural space. No significant pneumothorax identified. Upper CARDIOVASCULAR: No radiographic findings to suggest acute or significant cardiovascular disease. OSSEOUS STRUCTURES: No significant abnormalities. VISUALIZED UPPER ABDOMEN: Normal. OTHER FINDINGS: Stable, satisfactory position ventilatory, vascular and nasogastric apparatus. Stable subcutaneous emphysema IMPRESSION: No significant interval change compared to the prior examination(s).
[2017-06-22] MEDS: metroNIDAZOLE 500mg/100ml NS 100 ML IVPB SCH ×2 (00:41→00:42)
[2017-06-22] MEDS ORDERED: Morphine 100 MG in Sodium Chloride 0.9% 100 ML IVPB SCH (01:00)
[2017-06-22 08:16] VITALS: BP 133/39
--- NOTE | 2017-06-22 08:37 | CP.PCM.PN ---
Objective - Vital Signs/Intake and Output Vital Signs (last 24 hours): Temp Pulse Resp BP Pulse Ox 98.9 F 77 10 L 133/39 L 96 06/22/17 06:00 06/22/17 08:00 06/22/17 08:00 06/22/17 08:00 06/22/17 08:00 Intake and Output: 06/22/17 06/22/17 06:59 18:59 Intake Total 177 14 Output Total 0 Balance 177 14 - Medications Medications: Current Medications Amiodarone HCl (Cordarone) 100 mg PO DAILY [facility] Last Admin: 06/21/17 09:59 Dose: 100 mg Ascorbic Acid (Vitamin C 500 Mg Tab) 1,000 mg PO DAILY MOHINDER Last Admin: 06/21/17 09:58 Dose: 1,000 mg Ergocalciferol (Drisdol 50,000 Intl Units Cap) 1 cap PO Q7D MOHINDER Last Admin: 06/19/17 17:34 Dose: 1 cap Morphine Sulfate 100 mg/ (Sodium Chloride) 104 mls @ 3.12 mls/hr IVPB .Q24H MOHINDER ; 3 MG/HR PRN Reason: Protocol Last Admin: 06/21/17 12:29 Dose: 3.12 mls/hr Morphine Sulfate 100 mg/ (Sodium Chloride) 104 mls @ 7.28 mls/hr IVPB .[id number] MOHINDER; 7 MG/HR PRN Reason: Protocol Last Admin: 06/22/17 01:52 Dose: 7.28 mls/hr Pantoprazole Sodium (Protonix Inj) 40 mg IVP DAILY MOHINDER Last Admin: 06/21/17 09:59 Dose: 40 mg Timolol Maleate (Timoptic 0.5% Oph Soln) 1 drop OD DAILY MOHINDER Last Admin: 06/21/17 10:00 Dose: 1 drop Vitamin B Complex/Vit C/Folic Acid (Nephro-Lori) 1 tab PO DAILY MOHINDER Last Admin: 06/21/17 09:59 Dose: 1 tab - Labs Labs: 06/21/17 04:20 06/21/17 04:20 APTT 16.1 Seconds (25.6-37.1) L D 06/17/17 05:16
[2017-06-22 09:01] VITALS: PULSE 71; RESP 12; TEMP 99.2; O2SAT 83
--- NOTE | 2017-06-22 09:08 | CP.PCM.PN ---
Subjective - Date & Time of Evaluation Date of Evaluation: 06/22/17 Time of Evaluation: 09:06 - Subjective Subjective: Ms. Hamilton was seen and examined at the bedside. She was terminally extubated yesterday. Currently receiving Morphine drip as one of her palliative management. Her GCS-3 with sissy-cardona breathing. She has a nasal cannula for oxygen maintenance. Objective - Vital Signs/Intake and Output Vital Signs (last 24 hours): Temp Pulse Resp BP Pulse Ox 99.2 F 71 12 133/39 L 83 L 06/22/17 08:00 06/22/17 08:00 06/22/17 08:00 06/22/17 08:00 06/22/17 08:00 Intake and Output: 06/22/17 06/22/17 06:59 18:59 Intake Total 177 14 Output Total 0 Balance 177 14 - Medications Medications: Current Medications Amiodarone HCl (Cordarone) 100 mg PO DAILY [facility] Last Admin: 06/21/17 09:59 Dose: 100 mg Ascorbic Acid (Vitamin C 500 Mg Tab) 1,000 mg PO DAILY MOHINDER Last Admin: 06/21/17 09:58 Dose: 1,000 mg Ergocalciferol (Drisdol 50,000 Intl Units Cap) 1 cap PO Q7D MOHINDER Last Admin: 06/19/17 17:34 Dose: 1 cap Morphine Sulfate 100 mg/ (Sodium Chloride) 104 mls @ 3.12 mls/hr IVPB .Q24H MOHINDER ; 3 MG/HR PRN Reason: Protocol Last Admin: 06/21/17 12:29 Dose: 3.12 mls/hr Morphine Sulfate 100 mg/ (Sodium Chloride) 104 mls @ 7.28 mls/hr IVPB .[id number] MOHINDER; 7 MG/HR PRN Reason: Protocol Last Admin: 06/22/17 01:52 Dose: 7.28 mls/hr Pantoprazole Sodium (Protonix Inj) 40 mg IVP DAILY [facility] Last Admin: 06/21/17 09:59 Dose: 40 mg Timolol Maleate (Timoptic 0.5% Ophth Soln) 1 drop OD DAILY MOHINDER Last Admin: 06/21/17 10:00 Dose: 1 drop Vitamin B Complex/Vit C/Folic Acid (Nephro-Lori) 1 tab PO DAILY MOHINDER Last Admin: 06/21/17 09:59 Dose: 1 tab - Labs Labs: 06/21/17 04:20 06/21/17 04:20 APTT 16.1 Seconds (25.6-37.1) L D 06/17/17 05:16 - Neurological Exam Neuro motor strength exam: Left Upper Extremity: 0, Right Upper Extremity: 0, Left Lower Extremity: 0, Right Lower Extremity: 0 Additional comments: GCS-3 Assessment and Plan (1) Anoxic brain injury Assessment & Plan: Case discussed with DR. Arcos, continue all palliative management. Neurology is signing off from this case. Status: Acute
--- NOTE | 2017-06-22 09:46 | CP.PCM.PN ---
Subjective - Date & Time of Evaluation Date of Evaluation: 06/22/17 Time of Evaluation: 08:00 - Subjective Subjective: UNRESPONSIVE Objective - Vital Signs/Intake and Output Vital Signs (last 24 hours): Temp Pulse Resp BP Pulse Ox 99.2 F 71 12 133/39 L 83 L 06/22/17 08:00 06/22/17 08:00 06/22/17 08:00 06/22/17 08:00 06/22/17 08:00 Intake and Output: 06/22/17 06/22/17 06:59 18:59 Intake Total 177 14 Output Total 0 Balance 177 14 - Medications Medications: Current Medications Amiodarone HCl (Cordarone) 100 mg PO DAILY [facility] Last Admin: 06/21/17 09:59 Dose: 100 mg Ascorbic Acid (Vitamin C 500 Mg Tab) 1,000 mg PO DAILY MOHINDER Last Admin: 06/21/17 09:58 Dose: 1,000 mg Ergocalciferol (Drisdol 50,000 Intl Units Cap) 1 cap PO Q7D MOHINDER Last Admin: 06/19/17 17:34 Dose: 1 cap Morphine Sulfate 100 mg/ (Sodium Chloride) 104 mls @ 3.12 mls/hr IVPB .Q24H MOHINDER ; 3 MG/HR PRN Reason: Protocol Last Admin: 06/21/17 12:29 Dose: 3.12 mls/hr Morphine Sulfate 100 mg/ (Sodium Chloride) 104 mls @ 7.28 mls/hr IVPB .[id number] MOHINDER; 7 MG/HR PRN Reason: Protocol Last Admin: 06/22/17 01:52 Dose: 7.28 mls/hr Pantoprazole Sodium (Protonix Inj) 40 mg IVP DAILY MOHINDER Last Admin: 06/21/17 09:59 Dose: 40 mg Timolol Maleate (Timoptic 0.5% Ophth Soln) 1 drop OD DAILY M[facility]ER Last Admin: 06/21/17 10:00 Dose: 1 drop Vitamin B Complex/Vit C/Folic Acid (Nephro-Lori) 1 tab PO DAILY MOHINDER Last Admin: 06/21/17 09:59 Dose: 1 tab - Labs Labs: 06/21/17 04:20 06/21/17 04:20 APTT 16.1 Seconds (25.6-37.1) L D 06/17/17 05:16 - Respiratory Exam Respiratory Exam: Decreased Breath Sounds - Cardiovascular Exam Cardiovascular Exam: REGULAR RHYTHM, +S1, +S2 Assessment and Plan - Assessment and Plan (Free Text) Assessment: BRAIN INJURY ATRIAL FIBRILLATION-NOW IN SINUS RHYTHM HYPERTENSION DM Plan: PATIENT WAS TERMINALLY EXTUBATED YESTERDAY AND IS A DNR
--- NOTE | 2017-06-22 10:31 | CP.PCM.PRO ---
<Gilda Clark - Last Filed: 06/22/17 10:25> Pronouncement of Note - Clinical Findings Physical Exam: No Response Verbal/Painful Stimuli, Absent Peripheral Pulses{ Carotid & Femoral}, Absent Heart & Breath Sounds, No Pupillary Light Reflex, No Corneal Reflex, Pupils Fixed & Dilated, Absence of Vital Signs - Pronouncement Time Time of Pronouncement of : 09:40 - Notifications Pronouncement Notifications: Family Notified, Atending Notified Radiation Safety Officer Notified: No - Autopsy Autopsy Requested: No - [place] [id number] <Ari Manuel - Last Filed: 06/22/17 16:23> Attending/Attestation - Attestation I have personally seen and examined this patient.: Yes I have fully participated in the care of the patient.: Yes I have reviewed all pertinent clinical information: Yes
== END 2017-06-22 09:40 | DRG 640 ==
LOC: H.ER 17:21 → H.ERHOLD 21:31 → H.ICU/CCU 06-16 00:10
PROVIDERS: ADMIT Internal Medicine; ATTEND Internal Medicine
PROC: 5A1955Z Respiratory Ventilation, Greater than 96 Consecutive Hours (ICD-10-PCS; principal; 2017-06-15)
PROC: 0BH17EZ Insertion of Endotracheal Airway into Trachea, Via Natural or Artificial Opening (ICD-10-PCS; 2017-06-15)
PROC: 5A12012 Performance of Cardiac Output, Single, Manual (ICD-10-PCS; 2017-06-15)
PROC: 0W9B30Z Drainage of Left Pleural Cavity with Drainage Device, Percutaneous Approach (ICD-10-PCS; 2017-06-16)
PROC: 05HN33Z Insertion of Infusion Device into Left Internal Jugular Vein, Percutaneous Approach (ICD-10-PCS; 2017-06-16)
PROC: 5A1D70Z Performance of Urinary Filtration, Intermittent, Less than 6 Hours Per Day (ICD-10-PCS; 2017-06-16)
DX: E87.5 Hyperkalemia (principal); I46.8 Cardiac arrest due to other underlying condition; J96.00 Acute respiratory failure, unspecified whether with hypoxia or hypercapnia; G93.1 Anoxic brain damage, not elsewhere classified; J93.83 Other pneumothorax; N17.9 Acute kidney failure, unspecified; J98.2 Interstitial emphysema; I95.9 Hypotension, unspecified; E87.3 Alkalosis; N18.6 End stage renal disease; J90 Pleural effusion, not elsewhere classified; I12.0 Hypertensive chronic kidney disease with stage 5 chronic kidney disease or end stage renal disease; J98.11 Atelectasis; L97.419 Non-pressure chronic ulcer of right heel and midfoot with unspecified severity; E11.22 Type 2 diabetes mellitus with diabetic chronic kidney disease; E11.621 Type 2 diabetes mellitus with foot ulcer; I48.0 Paroxysmal atrial fibrillation; D63.1 Anemia in chronic kidney disease; K52.9 Noninfective gastroenteritis and colitis, unspecified; K21.9 Gastro-esophageal reflux disease without esophagitis; E78.5 Hyperlipidemia, unspecified; E78.00 Pure hypercholesterolemia, unspecified; M19.90 Unspecified osteoarthritis, unspecified site; Z66 Do not resuscitate; Z99.2 Dependence on renal dialysis; Z87.891 Personal history of nicotine dependence; Z79.4 Long term (current) use of insulin; Z79.02 Long term (current) use of antithrombotics/antiplatelets; Z89.421 Acquired absence of other right toe(s)